=== PATIENT | male | born 1940 | race Caucasian/White ===

== ENCOUNTER → 2023-11-22 10:02 | Outpatient (REF) | payer MEDICARE, OTHER, SELFPAY | LOC: DHCBS MAIN 10:02 | PROVIDERS: ATTENDING PHYSICIAN Internal Medicine Interventional Cardiology; FAMILY PHYSICIAN Nurse Practitioner Family | DX: I25.10 Atherosclerotic heart disease of native coronary artery without angina pectoris (principal); I25.5 Ischemic cardiomyopathy | CPT/HCPCS: 93306 ==

== ENCOUNTER → 2023-12-25 07:37 | Outpatient (REF) | payer MEDICARE, OTHER, SELFPAY ==
[2023-12-25 08:24] LABS: % Basophils 1.1 % (0-2); % Eosinophils 4.6 % (0-6); % Immature Granulocytes 0.6 % (0-0.5); % Monocytes 11.4 % (1.7-9.3); % Neutrophils 62.3 % (42.2-75.2); Absolute Basophils 0.1 10^3/uL (0-0.2); Absolute Eosinophils 0.2 10^3/uL (0-0.7); Absolute Lymphocytes 1.1 10^3/uL (1.2-3.4); Absolute Monocytes 0.6 10^3/uL (0.1-0.6); Absolute Neutrophils 3.3 10^3/uL (1.4-6.5); Hematocrit 40.9 % (39.0-52.0); Hemoglobin 13.6 g/dL (13.0-18.0); Mean Corp Hgb Conc. 33.3 g/dL (33.0-37.0); Mean Corpuscular Hgb 31.6 pg (27.0-31.0); Mean Corpuscular Volume 94.9 fL (80.0-94.0); Mean Platelet Volume 9.6 fL (7.4-10.4); Nucleated Red Blood Cells % 0 % (-); Platelet Count 166 10^3/uL (130-400); Red Blood Cell Count 4.31 10^6/uL (4.70-6.10); Red Cell Dist. Width 15.2 % (11.5-14.5); White Blood Cell Count 5.3 10^3/uL (4.8-10.8)
[2023-12-25 09:47] LABS: ALT (SGPT) 20 U/L (0-50); AST (SGOT) 22 U/L (17-59); Albumin 3.9 g/dl (3.5-5.0); Alkaline Phosphatase 81 U/L (38-126); Blood Urea Nitrogen 25 mg/dl (9-20); Calcium 9.1 mg/dl (8.4-10.2); Carbon Dioxide 30 mmol/L (22-30); Chloride 99 mmol/L (98-107); Glucose 127 mg/dl (70-99); Potassium 4.5 mmol/L (3.5-5.1); Sodium 132 mmol/L (135-145); Total Protein 6.3 g/dl (6.3-8.2); eGFR 59.63
== END ==
LOC: REG 07:37
PROVIDERS: ATTENDING PHYSICIAN Internal Medicine Interventional Cardiology; FAMILY PHYSICIAN Family Medicine
DX: I25.10 Atherosclerotic heart disease of native coronary artery without angina pectoris (principal); I25.5 Ischemic cardiomyopathy
CPT/HCPCS: 36415; 80053; 83735; 85025

== ENCOUNTER 2023-12-30 10:54 | Day surgery (SDC) | payer MEDICARE, OTHER, SELFPAY ==
[2023-12-30] VITALS (9 sets, daily range): BP systolic 107–144; BP diastolic 56–71; BMI 18.9; BMI 19.7
[2023-12-30] MEDS: NSS 500 IV ×2 (11:39→22:56)
--- NOTE | 2023-12-30 12:58 | W.ICD.CONTRA ---
Post ICD/MARINE PIPEFITTER-D
-
History of NE?: Yes
LV Function
Left ventricular function study result?: Ejection Fraction </= 35%
ACEI/ARB/ARNI
Patient already on ACEI/ARB/ARNI: Yes
Beta-Lynn
Patient already on Beta Lynn: Yes
--- NOTE | 2023-12-30 15:11 | ITS.CL.ICD ---
Information Lead - ICD
Implantable Cardioverter Defibrillator
Procedure Report:
ICD IMPLANTATION REPORT
Date of Procedure: 12/30/2023
Primary Care Provider: Dr Leidy Mora
Primary recycling coordinator: Dr Jillian Zeng
PROCEDURES:
1. Right Heart Cath, 2. ICD Implant
INDICATION FOR PROCEDURE:
Primary prevention ICD implantation. Remote myocardial infarction and with known infarct related cardiomyopathy and severe left ventricular systolic dysfunction despite guideline directed medical therapy (carvedilol, lisinopril, spironolactone,
atorvastatin, SGLT2 inhibitor was initiated but proved to be cost prohibitive) for greater than 90 days. LVEF June 2023 noted to be 15 to 20%. LVEF by most recent echocardiogram November 22, 2023 with LVEF of 20 to 25%, akinesis in the LAD
distribution.
There is no indication for cardiac resynchronization pacing.
Patient does have a history of paroxysmal atrial fibrillation.
HEMODYNAMICS:
RA: 6 mmHg, RV: 31/1 mmHg, PA: 35/15 mmHg,
PCWP: 19 mmHg, PA sat: 79%
CO: 4.9 L/min, CI: 2.8 L/min
OF NOTE:
There is atrial dysrhythmias and dual chamber device will allow better arrhythmia discrimination to avoid inappropriate shock therapy. Additionally, patient is active and dual chamber rather than VVI pacing is expected to provide improved quality of
life. Furthermore, there is heart failure (HFrEF) and AV synchronous pacing will provide improved cardiac output/cardiac function.
Lidocaine with epi was used for local anesthesia. Central venous access was obtained via axillary venipuncture. An incision was made along the left chest and a pre-pectoral pocket was formed. Using a Seldinger technique and peel-away sheaths, the
pacing leads were placed under fluoroscopic guidance.
Once testing (see below) showed adequate and stable function, the leads were secured using the suture sleeves. The pocket was liberally irrigated with antibiotic solution. The leads were connected to the generator header and the leads and
generator were placed within the pocket. Fluoroscopy confirmed stable lead position. The pocket was closed in the typical fashion.
Antibiotic pouch was used
IMPLANTS:
ICD Medtronic [id number], SN [id number], Left Pectoral
RA Medtronic 5076, SN [id number], RAA
RV Medtronic 6935, SN [id number], RV apical septum
DEVICE TESTING:
Sensing: RA 2 mV, RV 8 mV
Capture: RA 0.8 V@0.5ms, RV 0.8 V@0.5ms
Ohms: RA 456, RV 494
FINAL PROGRAMMING:
Scott Pacing: AAIR <=>DDDR 60 -130 ppm
Tachy parameters:
VF: 188 bpm, Shock
VT via VF: 188 - 240 bpm, ATP X 1, Shock
VT: 150 bpm, Monitor
COMPLICATIONS:
None
CONCLUSIONS:
1. Right heart hemodynamics demonstrate well compensated hemodynamic state and overall adequate volume status
2. Successful implant of dual chamber ICD system.
3. Normal function of ICD and leads at implant testing.
RECOMMENDATIONS:
Post op care (tele, CXR, IV abx).
In-Office wound check in 5-7 days.
Copy to:
Dr Leidy Mora
Dr Jillian Zeng
[2023-12-30] MEDS: LIPITOR 80 MG PO (17:39)
--- NOTE | 2023-12-30 18:18 | PTCARENOTE ---
Pt assisted OOB to BR, artis well. He denies incisional pain. L CW dsg D+I.
[2023-12-30] MEDS: PROTONIX 40 MG PO (20:03)
[2023-12-30] MEDS: MAG-TAB SR 84 MG PO (20:03)
[2023-12-30] MEDS: ANCEF 5 IV (20:04)
[2023-12-30] MEDS: SENOKOT 8.59999999999999964 MG PO (20:04)
[2023-12-30] MEDS: COREG 3.125 MG PO (20:04)
--- NOTE | 2023-12-30 23:40 | PTCARENOTE ---
Pt is pleasant but forgetful. Ambulatory to bathroom with single point cane and assist x1. Educated pt to use call jewell if needs to get up OOB. Bed alarm placed per high fall risk protocol. L arm immobilizer on. Aquacel and pressure dressing c/d/i.
Tele- A-paced. HR 60s. Aware of activity restrictions. Currently in bed; call jewell w/in reach.
[2023-12-31 03:08] VITALS: BP 117/71
[2023-12-31] MEDS: ANCEF 5 IV (03:21)
[2023-12-31 03:48] LABS: Hematocrit 40.4 % (39.0-52.0); Hemoglobin 13.5 g/dL (13.0-18.0); Mean Corp Hgb Conc. 33.4 g/dL (33.0-37.0); Mean Corpuscular Hgb 31.5 pg (27.0-31.0); Mean Corpuscular Volume 94.2 fL (80.0-94.0); Mean Platelet Volume 9.7 fL (7.4-10.4); Platelet Count 170 10^3/uL (130-400); Red Blood Cell Count 4.29 10^6/uL (4.70-6.10); Red Cell Dist. Width 14.9 % (11.5-14.5); White Blood Cell Count 6.8 10^3/uL (4.8-10.8)
[2023-12-31 04:18] LABS: Blood Urea Nitrogen 26 mg/dl (9-20); Calcium 8.4 mg/dl (8.4-10.2); Carbon Dioxide 26 mmol/L (22-30); Chloride 101 mmol/L (98-107); Estimated Creatinine Clearance 42 ml/min; Glucose 86 mg/dl (70-99); Magnesium 1.9 mg/dl (1.6-2.3); Sodium 130 mmol/L (135-145); eGFR > 60.00
[2023-12-31 06:00] VITALS: BMI 19.7
[2023-12-31 06:32] VITALS: BP 124/72
[2023-12-31] MEDS: PLAVIX 75 MG PO (07:48)
[2023-12-31] MEDS: LASIX 80 MG PO (07:48)
[2023-12-31] MEDS: COREG 3.125 MG PO (07:48)
[2023-12-31] MEDS: MAG-TAB SR 84 MG PO (07:48)
[2023-12-31] MEDS: SENOKOT 8.59999999999999964 MG PO (07:48)
[2023-12-31] MEDS: PROTONIX 40 MG PO (07:48)
[2023-12-31] MEDS: ZESTRIL 5 MG PO (07:48)
[2023-12-31] MEDS: ALDACTONE 25 MG PO (07:48)
[2023-12-31] MEDS: FLUSH (NSS) 1 FLUSH IV (07:49)
--- NOTE | 2023-12-31 09:27 | W.PN.CARDCBS ---
Addendum entered and electronically signed by Alexsander Matamoros MD 12/31/23 09:52:
Patient seen, interviewed and examined by me.
Well-appearing, no acute distress
Dressing at left chest is clean and dry.
Regular rate and rhythm with normal S1 and S2, no S3 no S4. There is a grade 1/6 apical holosystolic murmur and no rubs. PMI is normally placed.
Lungs are clear to auscultation bilaterally without wheezes rales or rhonchi.
Abdomen soft nontender nondistended with normoactive bowel sounds
Extremities show trace pretibial edema bilaterally no clubbing or cyanosis.
Neurologic exam is grossly nonfocal.
Chest x-ray with no pneumothorax.
Agree with advanced practice professionals assessment and plan as noted below.
Stable for discharge to home today.
Original Note:
Today's Communication / Plan
-
post DC ICD, RHC with normal filling pressures
stable for d/c home today
Impression / Plan
-
Primary Care Provider: Dr Leidy Mora
Primary guest service host: Dr Jillian Zeng
Impression:
Chronic HFrEF 25%
Ischemic cardiomyopathy
HTN
PAF
HLD
COPD
CAD/STEMI PCI LAD 06/2023
staged LCx and LAD 07/2023
PVD
BPH/TURP
Former smoker
Plan:
post DC ICD 12/30/23, RHC with normal filling pressures
site stable, pressure dressing removed
tele Apaced
CXR no PTX, leads in position
HF continue carvedilol, lisinopril, spironolactone, Lasix
CAD continue Plavix, statin
Hold Xarelto, resume Sat
Activity restrictions reviewed
inc check in 1 week
home today
Progress Note - Lapel Padder
Subjective
Date of Service: December 31, 2023
no cp, sob, minimal inc pain
Objective
Labs:
12/31/23 03:24
12/31/23 03:24
Labs
Hgb 13.5 g/dL (13.0-18.0) 12/31/23 03:24
Hct 40.4 % (39.0-52.0) 12/31/23 03:24
Plt Count 170 10^3/uL (130-400) 12/31/23 03:24
Sodium 130 mmol/L (135-145) L 12/31/23 03:24
Potassium 5.0 mmol/L (3.5-5.1) 12/31/23 03:24
BUN 26 mg/dl (9-20) H 12/31/23 03:24
Creatinine 1.1 mg/dL (0.7-1.3) 12/31/23 03:24
Glucose 86 mg/dl (70-99) 12/31/23 03:24
Vital Signs and I&O:
Vital Signs
Temp Pulse Resp BP Pulse Ox
98.0 F 60 18 124/72 97
12/31/23 06:32 12/31/23 07:00 12/31/23 06:32 12/31/23 06:32 12/31/23 06:32
Vital Signs
Temp Pulse Resp BP Pulse Ox
98.0 F 60 18 124/72 97
12/31/23 06:32 12/31/23 07:00 12/31/23 06:32 12/31/23 06:32 12/31/23 06:32
Intake & Output
12/29/23 12/30/23 12/31/23 01/01/24
06:59 06:59 06:59 06:59
Intake Total 240 / 240 240 / 240
Balance 240 / 240 240 / 240
Physical Exam
Physical Exam
NAD, AOx3
S1, S2, RRR
CTAB, non labored
SNTND Bsx4
No LE edema
L CW Aquacel dressing c/d/i, device protruding d/t size but no HT
--- NOTE | 2023-12-31 09:43 | W.DS.TRANS ---
DC Summary - [employer]
-
Discharge Instructions:
Sleep Apnea Risk Intermediate
Discharge Diagnosis/Procedures ICD implant
Diet Low Cholesterol,2 Gram Sodium
Driving Restrictions No driving
Bathing Restrictions OK to Shower
Specialty Instructions Weigh Daily
Instructions:
Stand-Alone Forms: DC Inst - Implanted Device
Changes to Home Medications: No
Discharge Medications:
DC Medications w/original date entered in [facility]
atorvastatin 80 mg tablet 80 mg PO QPM High Cholesterol 08/19/23
carvedilol 3.125 mg tablet 3.125 mg PO BID Heart Disease/Condition 08/19/23
clopidogrel 75 mg tablet 75 mg PO DAILY Blood Clot Prevention/Tx 08/19/23
lisinopril 5 mg tablet 5 mg PO DAILY Blood Pressure 08/19/23
magnesium oxide 400 mg PO BID Supplement 08/19/23
pantoprazole 40 mg tablet,delayed release 40 mg PO BID Gastrointestinal Issue 08/19/23
rivaroxaban 15 mg tablet (Xarelto) 15 mg PO DAILY Blood Clot Prevention/Tx 08/19/23
spironolactone 25 mg tablet 25 mg PO DAILY Fluid Retention/Swelling 08/19/23
furosemide 80 mg tablet 80 mg PO DAILY #30 tabs 08/23/23
sennosides 8.6 mg capsule (senna) 8.6 mg PO BID 12/30/23
Home Medication Changes
Pending Results: No
[2023-12-31 10:13] VITALS: BP 102/52
== END 2023-12-31 11:05 | disposition home or self-care (01) ==
LOC: CATH 10:54
PROVIDERS: Nurse Practitioner; ATTENDING PHYSICIAN Internal Medicine Cardiovascular Disease; FAMILY PHYSICIAN Family Medicine; OTHER PHYSICIAN Internal Medicine Interventional Cardiology
DX: I25.5 Ischemic cardiomyopathy (principal); I11.0 Hypertensive heart disease with heart failure; I50.22 Chronic systolic (congestive) heart failure; I25.2 Old myocardial infarction; I48.0 Paroxysmal atrial fibrillation; J44.9 Chronic obstructive pulmonary disease, unspecified; I73.9 Peripheral vascular disease, unspecified; E78.5 Hyperlipidemia, unspecified; Z79.01 Long term (current) use of anticoagulants; I25.10 Atherosclerotic heart disease of native coronary artery without angina pectoris; Z79.02 Long term (current) use of antithrombotics/antiplatelets
CPT/HCPCS: 33249; 71045; 80048; 83735; 85027; 93005; 93451; C1721; C1777; C1892; C1898; Q9967

== ENCOUNTER 2024-10-29 06:43 | Day surgery (SDC) | payer MEDICARE, OTHER, SELFPAY ==
[2024-10-29 07:54] VITALS: BMI 20.4
== END 2024-10-29 10:54 | disposition home or self-care (01) ==
LOC: CATH 06:43
PROVIDERS: ATTENDING PHYSICIAN Nuclear Medicine Nuclear Cardiology; FAMILY PHYSICIAN Family Medicine; OTHER PHYSICIAN Internal Medicine Interventional Cardiology
DX: I48.91 Unspecified atrial fibrillation (principal); I08.3 Combined rheumatic disorders of mitral, aortic and tricuspid valves; I70.90 Unspecified atherosclerosis
CPT/HCPCS: 93312; 93320; 93325; 93005

== ENCOUNTER 2024-11-09 13:06 | Emergency (ER) | payer MEDICARE, OTHER, SELFPAY ==
[2024-11-09 13:13] VITALS: BP 122/60
--- NOTE | 2024-11-09 14:14 | ED.GENMED ---
History of Present Illness
<Mel Wang PENAL OFFICER - Last Filed: 11/10/24 20:30>
General
Chief Complaint: Fall
Source: patient and records
Exam Limitations: none
Time Seen by Provider: 11/09/24 13:19
Nursing documentation reviewed up to this point in time: agreed with
History of Present Illness
History of Present Illness:
84 yo male from [facility] w h/o a fib on Xarelto, CHF, CAD, HTN, HLD, DC, CKD, ambulates with walker, presents stating he went to get OOB this a.m., lost footing and 'slid to the floor.' He denies hitting head, no LOC, denies neck pain. His
chronic back pain is 'aggravated' He landed on his buttocks leaning against the bed.
Past History
<Mel Wang PENAL OFFICER - Last Filed: 11/10/24 20:30>
Past History
ED Past Medical History: CAD, CHF, HTN, Hypercholesterolemia, [place] (92) and Other (BPH)
ED Past Surgical History: Cardiac (Angioplasty) and Urological (TURP)
Social History
Tobacco: Smoker
Alcohol: None
Drug: None
Personal:
Living: alone
Review of Systems
<Mel Wang, PENAL OFFICER - Last Filed: 11/10/24 20:30>
Review of Systems
Allergies reviewed?: Yes
All Other Systems: ROS reviewed and negative except as documented in HPI and ROS
Constitutional: Denies fever
Respiratory: Denies trouble breathing
Cardiac: Denies chest pain or syncope
ABD/GI: Denies abdominal pain or nausea
: Denies dysuria, frequency, incontinence or difficulty voiding
Musculoskeletal: Reports back pain (chornic low back pain is 'aggravated'); Denies joint pain or neck pain
Skin: Reports other (scrapes right upper arm and forearm)
Neurological: Denies dizzy, headache, weakness or numbness
Phy Exam
<Mel Wang PENAL OFFICER - Last Filed: 11/10/24 20:30>
Physical Exam
Physical Exam:
GENERAL: No acute distress. A&Ox3.
CONSTITUTIONAL: Afebrile.
EYES: clear, conjunctivae normal
ENMT: moist mucus membranes, Pharynx nl
RESPIRATORY: Regular respirations, nonlabored, lungs clear.
CARDIOVASCULAR: Regular rate and rhythm, no murmurs, no rubs.
GI: Soft, nontender, normal BS
MUSCULOSKELETAL: No spinal neck tenderness. Rolling to side moans in pain he states is his typical pain. Tender over lower back soft tissue patient s, no significant spinal tenderness. Moves legs with adequate ROM all joints without pain. No bony
tenderness upper extremities, full ROM. Well perfused.
SKIN: Warm, dry, pink. Several small <1 cm deep clean abrasions posterior upper right arm, one on forearm. Multiple old ecchymotic areas arms.
PSYCH: Normal mood and affect. Well kept, interactive and appropriate
NEUROLOGIC: Awake, alert and oriented. No focal neurological deficits
Course
<Mle Wang, PENAL OFFICER - Last Filed: 11/10/24 20:30>
Orders/Labs/Results
Orders:
Orders
11/09/24 13:26
CT Head W/o Iv Contrast Urgent
Comment:
Reason For Exam: fall, on Xarelto
11/09/24 14:18
Lumbar Spine, 2 or 3 View [CR Lumbar Spine 2 Or 3 Views] Urgent
Comment:
Reason For Exam: slid OOB, low back pain
11/09/24 16:12
Acetaminophen [Tylenol] 1,000 mg PO NOW STA
Vital Signs
Initial and Last Documented VS:
Initial Vital Signs
Temp Pulse Resp BP Pulse Ox
97.7 F 82 18 122/60 98
11/09/24 13:13 11/09/24 13:13 11/09/24 13:13 11/09/24 13:13 11/09/24 13:13
Last Documented Vital Signs
Temp Pulse Resp BP Pulse Ox
97.7 F 82 18 122/60 98
11/09/24 13:13 11/09/24 13:13 11/09/24 13:13 11/09/24 13:13 11/09/24 13:13
<Isaias Gutierres PA-C - Last Filed: 11/10/24 10:38>
Orders/Labs/Results
Orders:
Orders
11/09/24 13:26
CT Head W/o Iv Contrast Urgent
Comment:
Reason For Exam: fall, on Xarelto
11/09/24 14:18
Lumbar Spine, 2 or 3 View [CR Lumbar Spine 2 Or 3 Views] Urgent
Comment:
Reason For Exam: slid OOB, low back pain
11/09/24 16:12
Acetaminophen [Tylenol] 1,000 mg PO NOW STA
Vital Signs
Initial and Last Documented VS:
Initial Vital Signs
Temp Pulse Resp BP Pulse Ox
97.7 F 82 18 122/60 98
11/09/24 13:13 11/09/24 13:13 11/09/24 13:13 11/09/24 13:13 11/09/24 13:13
Last Documented Vital Signs
Temp Pulse Resp BP Pulse Ox
97.7 F 82 18 122/60 98
11/09/24 13:13 11/09/24 13:13 11/09/24 13:13 11/09/24 13:13 11/09/24 13:13
<Mel Wang NP - Last Filed: 11/10/24 20:30>
MDM/Problems Addressed
Differential Diagnosis Includes:
head bleed, low back strain, lumbar fracture
MDM/Problems Addressed:
84 yo male from [facility] w h/o a fib on Xarelto, CHF, CAD, HTN, HLD, DC, CKD, ambulates with walker, presents stating he went to get OOB this a.m., lost footing and 'slid to the floor.' He denies hitting head, Denies headache, no LOC, denies neck
pain. His chronic back pain is 'aggravated' He landed on his buttocks leaning against the bed.
Pt oriented, daughter Chantelle is registrar here, she states he is totally with it, he is clear on what happened.
This was clearly a mechanical fall,no indication for blood work or further testing.
Head CT radiology report read: No acute intracranial abnormality
LS-spine radiology report read: IMPRESSION:
1. Multilevel vertebral body endplate fractures in the lumbar and lower thoracic spine with moderate to severe loss of vertebral body height at T11 and L5. Mild loss of vertebral body height at the other lumbar and lower thoracic levels.
MULTILEVEL OSTEOPOROTIC VERTEBRAL BODY ENDPLATE INSUFFICIENCY FRACTURES are considered most likely given the degree of severe diffuse bone demineralization.
2. Moderate discogenic degenerative disease at L2/L3.
3. Grade 1 anterolisthesis of L4 on L5 secondary to severe facet joint arthrosis
Most likely no new fractures as palpation of spine was not painful and pt states pain is at its usual level
Pt has been OOB and ambulating at his baseline with walker
Stable for discharge
<Isaias Gutierres PA-C - Last Filed: 11/10/24 10:38>
*Critical Care Note
Total Time (30-74mins, 75-104mins- exclusive of procedures): Not Applicable
ED Attending Note
<Mel Wang NP - Last Filed: 11/10/24 20:30>
-
Portions of this chart may have been created with voice recognition software.� Occasional wrong word or��sound alike� substitutions may have occurred due to the inherent limitations of voice recognition software.
Discharge Plan
Departure
Patient Disposition: Jail/SNF
Date of Disposition: 11/09/24
Time of Disposition: 16:56
Patient with high blood pressure during this ER visit?: No
Condition: Good
Discharge Problem:
Fall from bed, Acute exacerbation of chronic low back pain, Abrasion of multiple sites of right upper arm
Instructions: Low back pain in adults, Preventing falls in adults, Skin Abrasions (DC)
Prescriptions:
New
tramadol 50 mg tablet
50 mg PO Q8H PRN (Reason: Pain) Qty: 14 0RF
No Action
atorvastatin 80 mg tablet
80 mg PO QPM
spironolactone 25 mg tablet
25 mg PO DAILY
carvedilol 3.125 mg tablet
3.125 mg PO BID
pantoprazole 40 mg tablet,delayed release (DR/EC)
40 mg PO QPM
lisinopril 5 mg tablet
5 mg PO DAILY
Xarelto 15 mg tablet
15 mg PO DAILY
magnesium oxide 400 mg magnesium Tablet
400 mg PO BID
furosemide 80 mg Tablet
80 mg PO DAILY Qty: 30 0RF
senna 8.6 mg Capsule
8.6 mg PO BID
linezolid 600 mg Tablet
600 mg PO BID
Referrals:
JENI URBAN MD [Family Provider] -
Activity Restrictions/Additional Instructions:
As we discussed, nothing worrisome in your workup here today
Tylenol 100 mg every 6 hours up to 3 times a day as needed for pain.
Interventions
Interventions:
*Risk Screen - Suicide Last Done: 11/09/24 13:13
*General Assessment Last Done: 11/09/24 13:13
*Neglect/Abuse Screening Last Done: 11/09/24 13:13
*ED- Fall Risk Assessment Last Done: 11/09/24 17:13
*Nursing Disposition Last Done: 11/09/24 17:13
ED-Musculoskeletal Assessment Last Done: 11/09/24 13:34
ED- Neurological Assessment Last Done: 11/09/24 13:34
ED-Skin Assessment Last Done: 11/09/24 13:34
Discharge Date and Time
Discharge Date/Time: 11/09/24 17:13
Print Language: ROMANIAN
[2024-11-09] MEDS: TYLENOL 1000 MG PO (16:33)
== END 2024-11-09 17:13 ==
LOC: EMR 13:06
PROVIDERS: EMERGENCY PHYSICIAN Emergency Medicine; FAMILY PHYSICIAN Internal Medicine
DX: S40.811A Abrasion of right upper arm, initial encounter (principal); W06.XXXA Fall from bed, initial encounter; M54.50 Low back pain, unspecified; G89.29 Other chronic pain; E78.00 Pure hypercholesterolemia, unspecified; I13.0 Hypertensive heart and chronic kidney disease with heart failure and stage 1 through stage 4 chronic kidney disease, or unspecified chronic kidney disease; I50.9 Heart failure, unspecified; N18.9 Chronic kidney disease, unspecified; I25.2 Old myocardial infarction; F17.200 Nicotine dependence, unspecified, uncomplicated; I25.10 Atherosclerotic heart disease of native coronary artery without angina pectoris; N40.0 Benign prostatic hyperplasia without lower urinary tract symptoms; Z79.01 Long term (current) use of anticoagulants; Z90.79 Acquired absence of other genital organ(s)
CPT/HCPCS: 99284; 70450; 72100

== ENCOUNTER 2024-11-16 08:17 | Inpatient (IN) | payer MEDICARE, OTHER, SELFPAY ==
[2024-11-14 20:36] VITALS: BP 107/57
[2024-11-14 21:00] VITALS: BP 98/42
[2024-11-14 21:05] LABS: ALT (SGPT) 66 U/L (0-50); AST (SGOT) 62 U/L (17-59); Albumin 3.4 g/dl (3.5-5.0); Alkaline Phosphatase 94 U/L (38-126); Blood Urea Nitrogen 54 mg/dl (9-20); Carbon Dioxide 25 mmol/L (22-30); Chloride 88 mmol/L (98-107); Glucose 109 mg/dl (70-99); Potassium 4.6 mmol/L (3.5-5.1); Sodium 124 mmol/L (135-145); Total Bilirubin 1.7 mg/dl (0.2-1.3); Total Protein 5.6 g/dl (6.3-8.2); eGFR 36.43
[2024-11-14 21:25] LABS: % Basophils 0.1 % (0-2); % Eosinophils 0.3 % (0-6); % Immature Granulocytes 0.7 % (0-0.5); % Lymphocytes 8.4 % (20.5-51.1); % Monocytes 4.8 % (1.7-9.3); % Neutrophils 85.7 % (42.2-75.2); Absolute Immature Granulocytes 0.1 10^3/uL (0-0.05); Absolute Lymphocytes 0.6 10^3/uL (1.2-3.4); Absolute Monocytes 0.3 10^3/uL (0.1-0.6); Hematocrit 33.3 % (39.0-52.0); Hemoglobin 11.4 g/dL (13.0-18.0); Mean Corp Hgb Conc. 34.2 g/dL (33.0-37.0); Mean Corpuscular Hgb 30.2 pg (27.0-31.0); Mean Corpuscular Volume 88.1 fL (80.0-94.0); Mean Platelet Volume 11.2 fL (7.4-10.4); Nucleated Red Blood Cells % 0 % (-); Platelet Count 44 10^3/uL (130-400); Red Blood Cell Count 3.78 10^6/uL (4.70-6.10); Red Cell Dist. Width 14.3 % (11.5-14.5)
[2024-11-14 22:27] VITALS: BP 98/46
--- NOTE | 2024-11-14 22:31 | ED.GENMED ---
History of Present Illness
General
Chief Complaint: Weakness
Source: patient and family (Daughter relates that he has had back pain for several weeks, he has not gotten out of bed)
Exam Limitations: dementia
Time Seen by Provider: 11/14/24 21:25
Nursing documentation reviewed up to this point in time: agreed with
History of Present Illness
History of Present Illness:
84-year-old male presents emergency department due to weakness and low back pain. Daughter states he is eating less, not getting out of bed.
Past History
Past History
ED Past Medical History: CAD, CHF, HTN, Hypercholesterolemia, [place] (89) and Other (BPH)
ED Past Surgical History: Cardiac (Angioplasty) and Urological (TURP)
Social History
Tobacco: Smoker
Alcohol: None
Drug: None
Personal:
Living: alone
Review of Systems
Review of Systems
Allergies reviewed?: Yes
All Other Systems: Not applicable
Constitutional: Reports fatigue
EENT: Reports no symptoms
Respiratory: Reports no symptoms
Cardiac: Reports no symptoms
ABD/GI: Reports no symptoms
: Reports no symptoms
Musculoskeletal: Reports back pain
Skin: Reports no symptoms
Neurological: Reports weakness
Endocrine: Reports no symptoms
Hematologic/Lymphatic: Reports no symptoms
Psychiatric: Reports no symptoms
Phy Exam
Physical Exam
Physical Exam:
Physical Exam
General: no apparent distress, not acutely ill
Neck: supple. no meningeal signs. normal posterior pharynx
Heart: s1/s2 regular rate and rhythm, no murmur. equal radial
pulses.
HEENT: Pupils equal round reactive to light, EOMI
Lungs: no acute respiratory distress. clear bilaterally
Abdomen: normal bowel sounds. not tender. no CVAT
Neuro: alert and oriented. no focal neurological deficits cranial nerves II through XII intact
Skin: no rash
Psychiatric: well kept. interactive and cooperative
Extremities: no edema. no calf tenderness. negative homans. good distal pulses
Course
Orders/Labs/Results
Orders:
Orders
11/14/24 20:34
Electrocardiogram (*1) Urgent
Reason for Study: Fatigue / Weakness
11/14/24 20:35
EKG- Treatment ONCE
11/14/24 20:37
Complete Blood Count/With Diff Urgent
Comprehensive Metabolic Panel Urgent
11/14/24 22:38
0.9% Sodium Chloride 250 ml [Nss] 250 ml IV BOLUS
11/14/24 22:42
Morphine Sulfate 2 mg IV NOW STA
Ondansetron Injectable [Zofran] 4 mg IV NOW STA
11/14/24 23:00
Flush (0.9% Sodium Chloride) [Flush (Nss)] See Dose Instructions IV PER PROTOCOL
11/15/24 00:18
Admit/Transfer Patient As Directed
Co-Sign Provider:
Level of Care: Observation services
Assign to:: Telemetry
Physician / Group: hospitalist
Diagnosis: hyponatremia
Reason for Telemetry: Medication for Arrhythmia
Date to Stop Telemetry: 11/17/24
Time to Stop Telemetry: 11:00
PRN Pain Medication Management As Directed
May give lesser potent ordered pain med per pt: Yes
preference::
Protocol:: Medication orders for pain may be administered in a
manner that supports deferring to patient preference
when the pt is:
- Requesting an ordered lesser potent pain medication.
Least to most potent pain medications are defined
as: acetaminophen < NSAID < tramadol < opioids
(morphine, oxycodone, hydromorphone).
- Requesting a lesser dose of the same medication IF
ORDERED.
- Requesting a less intrusive route of administration
if both routes are prescribed by the provider (PO <
IV).
11/15/24 00:19
Code Status As Directed
Resuscitation Status: Full Code
11/15/24 00:23
0.9% Sodium Chloride 250 ml [Nss] 250 ml IV BOLUS
11/17/24 11:00
DC Protocol for Telemetry ONCE
Abnormal Lab Results
11/14/24
20:37
RBC 3.78 L 10^6/uL
(4.70-6.10)
Hgb 11.4 L g/dL
(13.0-18.0)
Hct 33.3 L %
(39.0-52.0)
Plt Count 44 L 10^3/uL
(130-400)
MPV 11.2 H fL
(7.4-10.4)
Abs Immat Gran (auto) 0.1 H 10^3/uL
(0-0.05)
Absolute Lymphs (auto) 0.6 L 10^3/uL
(1.2-3.4)
Immature Gran % 0.7 H %
(0-0.5)
Neutrophils % 85.7 H %
(42.2-75.2)
Lymphocytes % 8.4 L %
(20.5-51.1)
Sodium 124 L mmol/L
(135-145)
Chloride 88 L mmol/L
(98-107)
BUN 54 H mg/dl
(9-20)
Creatinine 1.8 H mg/dL
(0.7-1.3)
Glucose 109 H mg/dl
(70-99)
Calcium 8.0 L mg/dl
(8.4-10.2)
Total Bilirubin 1.7 H mg/dl
(0.2-1.3)
AST 62 H U/L
(17-59)
ALT 66 H U/L
(0-50)
Total Protein 5.6 L g/dl
(6.3-8.2)
Albumin 3.4 L g/dl
(3.5-5.0)
11/14/24 20:37
11/14/24 20:37
Vital Signs
Initial and Last Documented VS:
Initial Vital Signs
Temp Pulse Resp BP Pulse Ox
97.5 F 67 16 107/57 99
11/14/24 20:36 11/14/24 20:36 11/14/24 20:36 11/14/24 20:36 11/14/24 20:36
Last Documented Vital Signs
Temp Pulse Resp BP Pulse Ox
97.5 F 60 16 98/46 100
11/14/24 20:36 11/14/24 22:30 11/14/24 20:36 11/14/24 22:27 11/14/24 22:30
MDM/Problems Addressed
Differential Diagnosis Includes:
Acute renal failure, hyponatremia
MDM/Problems Addressed:
84-year-old male with acute renal failure, hyponatremia, hypocalcemia. Admit to hospitalist.
Chronic conditions affecting care: HTN, CAD and Cardiomyopathy
Acute Exacerbation and/or Progression of Chronic Illness: HTN, CAD and Cardiomyopathy
*Pulse Oximetry
Patient hypoxic: no
*EKG
Interpreted by ED Provider?: Yes
EKG Intrepretation Date: 11/14/24
EKG Intrepretation Time: 20:43
Interpretation: abnormal
Comparison EKG: no changes
Heart Rate: 63
Rate: normal
Rhythm: av sequential
[place]: normal axis
Interval: normal interval
QRS Pattern: normal QRS
Ischemia: non-specific ST changes
*Armature Coil Winder Interpretation
Rate: normal
Interpretation: abnormal
Heart Rate: 62
Rhythm: av sequential
*Critical Care Note
Total Time (30-74mins, 75-104mins- exclusive of procedures): Not Applicable
Data Reviewed
Review of Other/Old Records Reveals: Labs (Na 130, )
Source: records
ED Attending Note
-
Portions of this chart may have been created with voice recognition software.� Occasional wrong word or��sound alike� substitutions may have occurred due to the inherent limitations of voice recognition software.
Discharge Plan
Departure
Patient Disposition: Admit
Date of Disposition: 11/14/24
Time of Disposition: 22:38
Admit to: IMU
Presentation/result/management discussed w/ accepting MD/DO: Hospitalist
Patient with high blood pressure during this ER visit?: No
Condition: Fair
Discharge Problem:
Acute hyponatremia, AYE (acute kidney injury), Weakness
Interventions
Interventions:
*Risk Screen - Suicide Last Done: 11/14/24 20:36
*General Assessment Last Done: 11/14/24 20:36
*Neglect/Abuse Screening Last Done: 11/14/24 20:36
*ED- Fall Risk Assessment Last Done: 11/14/24 20:36
*ED COVID-19 Vaccine History Last Done: 11/14/24 20:36
ED- Cardiac Assessment Last Done: 11/14/24 20:43
ED- Neurological Assessment Last Done: 11/14/24 20:43
ED- Pulmonary Assessment Last Done: 11/14/24 20:43
[2024-11-14] MEDS: MORPHINE SULFATE 2 MG IV (22:50)
[2024-11-14] MEDS: ZOFRAN 4 MG IV (22:50)
[2024-11-14] MEDS: NSS 250 IV (22:50)
[2024-11-14] MEDS: FLUSH (NSS) 1 FLUSH IV (22:51)
[2024-11-14 23:00] VITALS: BP 100/47
--- NOTE | 2024-11-14 23:56 | HPS.HSE ---
Family Physician
-
Family Physician: JENI URBAN MD
Chief Complaint
-
Weakness
History of Present Illness
This is an 84-year-old male with past medical history of CAD status post STEMI in 2022 with LAD stent placement, staged mid LAD and circumflex stents, ischemic cardiomyopathy with EF of around 20 to 25% status post ICD and pacemaker, paroxysmal
atrial fibrillation on Xarelto and amiodarone, hypertension, hyperlipidemia, CKD, recurrent falls recent admission at [facility] with sepsis 6 and MSSA bacteremia status post antibiotic treatment and discharge about 3 weeks ago presents to
the emergency department for a second time in 1 week with weakness and back pain.
According to daughter who provided history patient has been going to rehab at [facility]. Did he has had decreased p.o. intake secondary to decreased appetite. He has had no lower extremity swelling. He has no shortness of breath cough
fevers or chills. He has no nausea or vomiting or diarrhea. He has been taking his discharge medications which included furosemide and spironolactone. He complains of chronic back pain which he says is localized behind the right buttocks. He
denies any radicular symptoms. He denies any numbness tingling or weakness in his lower extremities bilaterally. He denies any new urinary symptoms including incontinence, urgency frequency or dysuria. He denies any hematuria.
During his last hospitalization for MSSA bacteremia he refused inpatient echo but ultimately received transfer esophageal echocardiogram on October 29 which showed no vegetations and EF that is unchanged from prior at around 20 to 25%. ICD wire
seen in the right heart, normal right ventricle size and function noted. No evidence of any thrombus.
Here in the emergency department his blood pressure was 90/46, pulse was 60 respiratory rate 16 he was satting 100% on room air. ECG shows a paced rhythm at a rate of 63 and no other acute changes. CBC was unremarkable. Electrolytes notable for a
sodium of 124, BUN and creatinine with 50 and 1.8 respectively with a normal glucose. Calcium was 8.0. Total bilirubin was slightly bit at 1.7 with slight elevation in AST and ALT to 62 and 66 respectively.
Medical History
Past Medical History
Past Medical History: Reports Arrhythmia (paroxysmal afib), CAD (Status post AK, status post multivessel angioplasty with stents), CHF (EF 20 - 25%, s/p ICD PPM), HTN, Hypercholesterolemia and Other (Nephrolithiasis, BPH)
Past Surgical History: Reports Tonsilectomy, Urological (TURP, bladder surgery with calculi removal) and Other (Angioplasty with stents in the heart, TURP.)
Social History
Tobacco: Non-smoker
Alcohol: None
Drug: None
Personal: Single
Living: Assisted Living
Employment: Retired
Family History
Family History: CAD
Allergies / Home Medications
Allergies reflects when Allergies were last updated in [employer].
Home Medications with original date entered in [employer]
Allergy/Medication List:
Allergies
Allergy/AdvReac Type Severity Reaction Status Date / Time
No Known Allergies Allergy Verified 11/09/24 13:12
Home Medications
atorvastatin 80 mg tablet 80 mg PO QPM High Cholesterol 08/19/23
carvedilol 3.125 mg tablet 3.125 mg PO BID Heart Disease/Condition 08/19/23
lisinopril 5 mg tablet 5 mg PO DAILY Blood Pressure 08/19/23
magnesium oxide 400 mg PO BID Supplement 08/19/23
pantoprazole 40 mg tablet,delayed release 40 mg PO QPM Gastrointestinal Issue 08/19/23
rivaroxaban 15 mg tablet (Xarelto) 15 mg PO DAILY Blood Clot Prevention/Tx 08/19/23
spironolactone 25 mg tablet 25 mg PO DAILY Fluid Retention/Swelling 08/19/23
furosemide 80 mg tablet 80 mg PO DAILY #30 tabs 08/23/23
sennosides 8.6 mg capsule (senna) 8.6 mg PO BID 12/30/23
tramadol 50 mg tablet 50 mg PO Q8H PRN Pain #14 tabs 11/09/24
Amiodarone 200 mg tablet, 20 mg p.o. daily
Aspirin 81 mg tablet, 8 tomograms p.o. daily
Review of Systems
-
History Source: Patient
Constitutional: Reports Weight Loss and Fatigue
EENT: Reports No Symptoms
Respiratory: Reports No Symptoms
Cardiac: Reports No Symptoms
Abdomen/GI: Reports No Symptoms
: Reports No Symptoms
Musculoskeletal: Reports Joint Pain
Neurological: Reports Weakness
Endocrine: Reports No Symptoms
Hematologic/Lymphatic: Reports No Symptoms
Psych: Reports No Symptoms
Physical Exam
Vital Signs
Vital Signs
Temp Pulse Resp BP Pulse Ox
97.5 F 60 16 98/46 100
11/14/24 20:36 11/14/24 22:30 11/14/24 20:36 11/14/24 22:27 11/14/24 22:30
Physical Exam
General: No Apparent Distress
HEENT: NormoCephalic, Anicteric, Atraumatic, PERRLA and No Ptosis
Respiratory: Clear
Cardiac: S1/S2 and Regular Rhythm; No Murmur or Gallop
GI: Soft, Non Tender, Non Distended and Normal Bowel Sounds
Rectal: Deferred by Provider
Genito-urinary: Deferred by me
Musculoskeletal: No Clubbing, No Cyanosis and No Edema
Skin: Warm
Neuro: AO x 3 and Nonfocal/grossly intact
Hematologic/Lymphatic: No Lymphadenopathy
Psych: Calm
Laboratory Results
-
11/14/24 20:37
11/14/24 20:37
Laboratory Results
Total Bilirubin 1.7 mg/dl (0.2-1.3) H 11/14/24 20:37
AST 62 U/L (17-59) H 11/14/24 20:37
ALT 66 U/L (0-50) H 11/14/24 20:37
Alkaline Phosphatase 94 U/L (38-126) 11/14/24 20:37
Data Reviewed
-
Diagnostic Radiology: Report Reviewed by me
Medical Tests (Nuc Med, Echo, EKG etc): Image Personally Visualized and interpreted
Lab Data: Labs Reviewed by me
Old Records: Reviewed
Impression/Plan
-
IMPRESSION:
84-year-old with complex cardiac history including CAD status post stents, ischemic cardiomyopathy EF 20 to 25% status post ICD, proximal atrial fibrillation status post pacemaker and on anticoagulation, BPH, recent MSSA bacteremia of unknown source
with echocardiogram on October 29 showing no vegetations and otherwise unchanged echo from prior with a EF of 20 to 25% with no worsening valvular disease. He presents with weakness and worsening of his chronic lower back pain. No radicular
findings on examination. Was seen in the emergency department 5 days ago with similar complaints and at the time was given tramadol with minimal improvement. Patient today has a slightly lower blood pressure than baseline and is found to have
sodium of 124. Creatinine is 1.8 which is similar to but slightly worse than October 13 when the creatinine was 1.7 with a BUN of 49. Mild LFT abnormalities noted.
PLAN:
Hyponatremia - Based on hx appears to be hypovolemic hyponatremia. Possibly pain related SIADH. Patient is deydrated on exam and shows no edema, jvd or pulm edema. Baseline Na around 129-130, now 124. Asymptomatic.
- admit to telemetry
- hold lasix, spironolactone
- urine osms and sodium
- will give additional 250 ml saline and monitor
- likely d/c on lower doses of lasix (40mg daily)
- orthostatics
CKD - Cr 1.6-1.7 in october at [facility]. currently 1.8.
- holding lisinopril for now
- holding diuretics for the hyponatremia
- avoid nephrotoxins
- will restart her medications once sodium improved.
Back pain - chronic low back pain with vertebral body endplate fractures in the lumbar and lower thoracic spine with moderate to severe loss of vertebral body height at T11 and L5. Disease also seen at L2-3, L4-5 joints.
- tylenol prn
- oxycodon prn (tramadol not effective)
- lidocaine topical
- PT OT
- will need outpatient pain specialist
CHF - Hypovolemic
- holding diuretics and lisinopril
- continue coreg
- liberalize diet for now
AFIB
- continue Xarelto. In setting of recent falls, may discuss discontinuation
- continue coreg
DVT PPX - on Xarelto
Code status - Full Code for now
[2024-11-15] VITALS (12 sets, daily range): BP systolic 90–111; BP diastolic 40–71; PULSE 60–66; O2SAT 95; BMI 17.1
--- NOTE | 2024-11-15 05:15 | PTCARENOTE ---
Received pt from ED, AAOx3 forgetful, VSS, no complaints of pain. Pt has multiple wounds wrapped on R arm, R hip. Pt and family refused RN to remove- wound care consult placed. Dressing intact
[2024-11-15 07:46] LABS: Mean Corp Hgb Conc. 35.5 g/dL (33.0-37.0); Mean Corpuscular Hgb 30.2 pg (27.0-31.0); Mean Corpuscular Volume 85.2 fL (80.0-94.0); Mean Platelet Volume 11.3 fL (7.4-10.4); Platelet Count 45 10^3/uL (130-400); Red Blood Cell Count 3.64 10^6/uL (4.70-6.10); Red Cell Dist. Width 14.4 % (11.5-14.5); White Blood Cell Count 5.4 10^3/uL (4.8-10.8)
[2024-11-15 08:01] LABS: ALT (SGPT) 74 U/L (0-50); AST (SGOT) 92 U/L (17-59); Alkaline Phosphatase 86 U/L (38-126); Blood Urea Nitrogen 55 mg/dl (9-20); Carbon Dioxide 22 mmol/L (22-30); Chloride 93 mmol/L (98-107); Direct Bilirubin 0.4 mg/dl (0.0-0.4); Estimated Creatinine Clearance 28 ml/min; Glucose 71 mg/dl (70-99); Magnesium 2.4 mg/dl (1.6-2.3); Potassium 4.1 mmol/L (3.5-5.1); Sodium 126 mmol/L (135-145); Total Bilirubin 1.2 mg/dl (0.2-1.3); Total Protein 5.2 g/dl (6.3-8.2); eGFR 45.34
[2024-11-15] MEDS: XARELTO 15 MG PO (08:58)
[2024-11-15] MEDS: SENOKOT 8.6 MG PO ×2 (08:58→20:17)
[2024-11-15] MEDS: LIDOCAINE 4% PATCH TOPICAL (08:58)
[2024-11-15 09:13] LABS: Vitamin B12 764 pg/ml (239-931)
--- NOTE | 2024-11-15 09:15 | W.PN.HOSP.TC ---
Today's Communication/Plan
-
see bold
Assessment / Plan
Assessment / Plan
84-year-old with complex cardiac history including CAD status post stents, ischemic cardiomyopathy EF 20 to 25% status post ICD, proximal atrial fibrillation status post pacemaker and on anticoagulation, BPH, recent MSSA bacteremia of unknown source
with echocardiogram on October 29 showing no vegetations and otherwise unchanged echo from prior with a EF of 20 to 25% with no worsening valvular disease. He presents with weakness and worsening of his chronic lower back pain. No radicular
findings on examination. Was seen in the emergency department 5 days ago with similar complaints and at the time was given tramadol with minimal improvement. Patient today has a slightly lower blood pressure than baseline and is found to have
sodium of 124. Creatinine is 1.8 which is similar to but slightly worse than October 13 when the creatinine was 1.7 with a BUN of 49. Mild LFT abnormalities noted.
Hyponatremia
-Suspect secondary to hypovolemia. Baseline Na around 129-130
-Sodium improved to 126, from 124 status post 500 cc normal saline
-Consult nephrology, check urine studies, TSH, am cortisol
-48 ounce fluid restriction, trend sodium
Acute kidney injury superimposed on chronic kidney disease
Cr 1.6-1.7 in october at [facility]. currently 1.8.
-Creatinine improved to 1.6, from 1.8 status post IV fluids
-Holding Lasix, holding spironolactone/lisinopril as above
-Trend creatinine, trend daily weights
Back pain
-Chronic low back pain with vertebral body endplate fractures in the lumbar and lower thoracic spine with moderate to severe loss of vertebral body height at T11 and L5. Disease also seen at L2-3, L4-5 joints.
-Continue oxycodone, Tylenol, PT/OT, add laxatives
-Will need to follow-up with pain management outpatient
CHF - Hypovolemic
- holding diuretics and lisinopril
- continue coreg
- liberalize diet for now
AFIB
- continue Xarelto. In setting of recent falls, consider discussing discontinuation
- continue coreg
DVT PPX - on Xarelto
Code status - Full Code
Total time spent to see the patient on the floor, examine the patient, review data and lab results, discuss treatment plan with patient, nursing staff around 50 minutes.
Physical Exam
General: No acute distress
HEENT: Normocephalic, Atraumatic, EOMI, MMM
Respiratory: Clear to Auscultation bilaterally
Cardiac: Normal S1/S2, Regular Rate and Rhythm
GI: Soft, Nontender, Nondistended, Normal Bowel Sounds
Extremities: No Clubbing, Cyanosis, or Edema
Neuro: Nonfocal/Grossly Intact
Psych: Calm, Cooperative
Anticipated Discharge: 24 - 48 hours
Subjective/Interval History
-
Date of Service: November 15, 2024
Patient denies back pain. He continues to feel weak. No chest pain, no shortness of breath. No fever, no vomiting.
Objective Data
-
Labs:
Laboratory Results
11/14/24 11/15/24
20:37 07:14
WBC 7.0 5.4
Hgb 11.4 L 11.0 L
Hct 33.3 L 31.0 L
Plt Count 44 L 45 L
Sodium 126 L
Potassium 4.1
Chloride 93 L
Carbon Dioxide 22
BUN 55 H
Creatinine 1.5 H
Glucose 71
Calcium 8.0 L
Total Bilirubin 1.2
AST 92 H
ALT 74 H
Alkaline Phosphatase 86
Vital Signs:
Vital Signs
Temp Pulse Resp BP Pulse Ox
97.5 F 61 16 106/42 97
11/15/24 07:45 11/15/24 07:45 11/15/24 07:45 11/15/24 07:45 11/15/24 08:45
--- NOTE | 2024-11-15 10:19 | W.CON.NEPH ---
Consultation
-
Date/Time Consultation Requested: 11/15/2024 10 AM
Date/Time Consultation Performed: 11/15/2024 10 AM
Requesting Provider: Dr. Davidson
Performing Provider: Dr. Cortez
Reason for Consultation: Hyponatremia
Medical History
-
Chief Complaint: Weakness
History of Present Illness:
This is an 84-year-old gentleman who has hypertension on a multidrug regimen, hyperlipidemia on statin therapy, atrial fibrillation on Xarelto. He also has ischemic cardiomyopathy with heart failure reduced ejection fraction 20% on diuretic
therapy. Recently in [facility] with sepsis with MSSA. He was discharged to [facility] rehab. Since then he has had decreased oral intake. He comes to the emergency room because of weakness, relatively hypotense. Sodium was noted to be
124. He does have chronic hyponatremia as well. Creatinine was also noted to be elevated at 1.8 representing acute kidney injury.
Past Medical History
Paroxysmal atrial fibrillation
Coronary artery disease with stents
heart failure reduced EF
Hypertension
Hyperlipidemia
BPH
Nephrolithiasis
ICD pacemaker
Tonsillectomy
TURP
Stone extraction
Bladder surgery
Hyponatremia
Social History
Tobacco: Non-Smoker
Alcohol: None
Family History
Family History: Not Pertinent
Allergies / Home Medications
Allergy/AdvReac Type Severity Reaction Status Date / Time
No Known Allergies Allergy Verified 11/09/24 13:12
�Medication �Instructions �Recorded �Confirmed �Type
atorvastatin 80 mg tablet 80 mg PO QPM High Cholesterol 08/19/23 10/29/24 History
carvedilol 3.125 mg tablet 3.125 mg PO BID Heart 08/19/23 10/29/24 History
Disease/Condition
lisinopril 5 mg tablet 5 mg PO DAILY Blood Pressure 08/19/23 10/29/24 History
magnesium oxide 400 mg PO BID Supplement 08/19/23 10/29/24 History
pantoprazole 40 mg tablet,delayed 40 mg PO QPM Gastrointestinal Issue 08/19/23 10/29/24 History
release
rivaroxaban 15 mg tablet (Xarelto) 15 mg PO DAILY Blood Clot 08/19/23 10/29/24 History
Prevention/Tx
spironolactone 25 mg tablet 25 mg PO DAILY Fluid 08/19/23 10/29/24 History
Retention/Swelling
furosemide 80 mg tablet 80 mg PO DAILY #30 tabs 08/23/23 10/29/24 Rx
sennosides 8.6 mg capsule (senna) 8.6 mg PO BID 12/30/23 10/29/24 History
linezolid 600 mg tablet 600 mg PO BID 10/29/24 10/29/24 History
tramadol 50 mg tablet 50 mg PO Q8H PRN Pain #14 tabs 11/09/24 Rx
Physical Exam
Vital Signs
Vital Signs
Temp Pulse Resp BP Pulse Ox
97.5 F 61 16 106/42 97
11/15/24 07:45 11/15/24 07:45 11/15/24 07:45 11/15/24 07:45 11/15/24 08:45
Lab Results
WBC 5.4 10^3/uL (4.8-10.8) 11/15/24 07:14
RBC 3.64 10^6/uL (4.70-6.10) L 11/15/24 07:14
Hgb 11.0 g/dL (13.0-18.0) L 11/15/24 07:14
Hct 31.0 % (39.0-52.0) L 11/15/24 07:14
Plt Count 45 10^3/uL (130-400) L 11/15/24 07:14
Sodium 126 mmol/L (135-145) L 11/15/24 07:14
Potassium 4.1 mmol/L (3.5-5.1) 11/15/24 07:14
Chloride 93 mmol/L (98-107) L 11/15/24 07:14
Carbon Dioxide 22 mmol/L (22-30) 11/15/24 07:14
BUN 55 mg/dl (9-20) H 11/15/24 07:14
Creatinine 1.5 mg/dL (0.7-1.3) H 11/15/24 07:14
eGFR 45.34 11/15/24 07:14
Glucose 71 mg/dl (70-99) 11/15/24 07:14
Calcium 8.0 mg/dl (8.4-10.2) L 11/15/24 07:14
Albumin 3.0 g/dl (3.5-5.0) L 11/15/24 07:14
Laboratory Tests
08/20/23 08/21/23 12/31/23
15:56 05:02 03:24
Sodium 127 L 130 L
AST
ALT
Urine Osmolality 748
Urine Sodium 15 L
11/15/24
07:14
Sodium
AST 92 H
ALT 74 H
Urine Osmolality
Urine Sodium
Physical Exam
Patient is awake alert oriented and in no distress. Mood and affect were pleasant, insight and judgment were good. Pupils are equal round and reactive to light, extraocular movements are intact, sclera were anicteric. Hearing was normal, ears and
nose are intact. Oropharynx was clear. Neck was supple with trachea midline and no thyromegaly. Heart was regular rate and rhythm without rubs. Lower extremities without edema. Lungs were clear to auscultation bilaterally and with normal
excursion. Abdomen was soft, nontender, with normal active bowel sounds, and no hepatosplenomegaly. Skin was without rash and with normal turgor.
Data Reviewed
-
Radiology: Image Personally Visualized and interpreted (Lumbar spine x-ray 11/09/2024 by my reading shows multiple vertebral body endplate fractures)
Medical Tests (Nuc Med, Echo etc): Image Personally Visualized and interpreted (11/14/2024 EKG by my reading atrial paced)
Labs: Labs Reviewed by me
Old Records: Reviewed
Assessment/Plan
-
Assessment
Hypotension relative
Acute on chronic hyponatremia
Paroxysmal atrial fibrillation
Heart failure reduced ejection fraction
AYE
Back pain with fractures
Plan
check urine studies
holding spironolactone/lisinopril
holding lasix for now
light FR 48z for now
follow BMP
check bladder scan
--- NOTE | 2024-11-15 11:43 | CM ---
Addendum entered by Glenn Velazquez 11/15/24 11:50:
OBS status explained, placed on chart, pt has a copy.
Original Note:
CM following re: discharge planning.
Reviewed pt's chart, met with pt.
Pt is an 84 year old male, admitted with OBS status and primary dx of Hyponatremia, Weakness.
Pt reports he has been living in an apartment at [facility] for the past 6 months, has 2 supportive children, ambulates with a walker.
PT and OT will evaluate the pt to determine a level of care at discharge.
PCP: Joana Muniz
Pharmacy: [facility] pharmacy.
D/C plan: return back to [facility] will most likely VN services. PT/OT to evaluate.
CM will follow with discharge plan updates as hospitalization progresses
[2024-11-15] MEDS: HYDROPHOR 1 APPLIC TOPICAL ×2 (12:24→20:19)
[2024-11-15 13:39] LABS: Urine Albumin Negative (Neg - Trace); Urine Bilirubin Negative (Negative); Urine Character Clear (Clear); Urine Color Yellow; Urine Glucose Negative (Negative); Urine Ketone 1+ (Negative); Urine Leukocyte 1+ (Negative); Urine Nitrite Negative (Negative); Urine Occult Blood Negative (Negative); Urine Urobilinogen Negative (Neg - 1+)
[2024-11-15 13:50] LABS: Urine Squamous Cell 0-2 /LPF (Few)
[2024-11-15 13:51] LABS: Urine Bacteria Few (Negative); Urine Mucus Few; Urine Red Blood Cell 0-2 /HPF (0-2)
[2024-11-15 13:57] LABS: Osmolality Urine 504 mOsm/kg (300-900)
[2024-11-15 14:18] LABS: Urine Sodium 8 mmol/L (30-90)
[2024-11-15] MEDS: TYLENOL 650 MG PO ×2 (14:24→18:25)
[2024-11-15] MEDS: ROXICODONE 5 MG PO (16:17)
--- NOTE | 2024-11-15 16:37 | PTCARENOTE ---
Pt AAO x3; HOH. RUSSELL, can position self in bed. OOB to chair with assist x 1/walker; legs weak, pt unable to stand without assistance, c/o lower back pain with activity. VSS. Telemetry: A-paced. On room air- pulse ox 98%, no SOB noted. Abd
soft, rounded, artis PO, appetite fair. Voids clear lt joelle urine in urinal. Pt with multiple large bruised areas on arms; large skin tear Rt upper arm re-dressed; pt for WOC consult. Resting in bed at present. Will continue to monitor.
--- NOTE | 2024-11-15 16:55 | PTCARENOTE ---
Attempted to complete med rec on pt; pt stated he does not know medications/dosages; stated 'someone helps me with them'. Pt does not have medication list with him..
[2024-11-15] MEDS: PROTONIX 40 MG PO (17:50)
[2024-11-15] MEDS: LIPITOR 80 MG PO (17:50)
[2024-11-16] VITALS (8 sets, daily range): BP systolic 76–129; BP diastolic 33–58; PULSE 61–68; BMI 17.3
--- NOTE | 2024-11-16 06:15 | PTCARENOTE ---
For couple hrs this shift was quite disoriented re:place. Freq questioning as to if this was where he was supposed to be and why weren't some of his belongings here. Appeared to be thinking he was at SNF. Remained cooperative, despite being be
confused. Slept rather poorly through the night. Currently more relaxed and sleeping at intervals.
[2024-11-16] MEDS: MIRALAX 17 GRAMS PO (08:34)
[2024-11-16] MEDS: XARELTO 15 MG PO (08:34)
[2024-11-16] MEDS: SENOKOT 8.6 MG PO ×2 (08:34→19:57)
[2024-11-16] MEDS: LIDOCAINE 4% PATCH 1 PATCH TOPICAL (08:35)
[2024-11-16] MEDS: HYDROPHOR 1 APPLIC TOPICAL ×2 (08:35→19:57)
[2024-11-16 10:19] LABS: Blood Urea Nitrogen 51 mg/dl (9-20); Calcium 8.1 mg/dl (8.4-10.2); Carbon Dioxide 30 mmol/L (22-30); Chloride 89 mmol/L (98-107); Estimated Creatinine Clearance 31 ml/min; Glucose 82 mg/dl (70-99); Potassium 3.8 mmol/L (3.5-5.1); Sodium 123 mmol/L (135-145); eGFR 49.25
--- NOTE | 2024-11-16 10:38 | CM ---
Addendum entered by Sue Parker 11/16/24 14:40:
Patient known to [facility] at [facility].
Original Note:
Spoke with patient bedside, not interested in a facility for rehab.
Spoke with daughter via phone and reviewed recommendations.
PT recommending skilled rehab.
Facilities reviewed and referrals sent.
Plan: skilled rehab once medically stable and bed available.
--- NOTE | 2024-11-16 11:46 | WOUNDNOTE ---
R UPPER POSTERIOR ARM AND ELBOW
--- NOTE | 2024-11-16 11:46 | WOUNDNOTE ---
R POSTERIOR UPPER ARM
--- NOTE | 2024-11-16 11:57 | CON.CAR ---
Addendum entered and electronically signed by Mague Tamez DO 11/16/24 17:00:
I saw and examined the patient.
The Security Architect's note was reviewed and I agree with the note.
Comment: Patient was seen and examined with nursing at bedside. Agree with cardiac PA's documented HPI, assessment and plan. Janak is an 83-year-old male with history of coronary artery disease with STEMI status post LAD STEPHAN 06/02/2023 and status post
mid LAD and left circumflex STEPHAN 07/31/2023, chronic total occlusion of RCA with collaterals (at [facility]), hypertension, hyperlipidemia, paroxysmal atrial fibrillation on chronic anticoagulation with Xarelto, chronic kidney
disease, COPD, not on home oxygen, former tobacco abuse, BPH/TURP, peripheral vascular disease, coronary artery disease with resulting ischemic cardiomyopathy and chronic systolic and diastolic heart failure, dual-chamber ICD 12/2023, mild cognitive
deficits. He was seen by his primary avionics electronics technician, Dr. Yanez in September 2024 and Plavix was stopped and he was started on aspirin 81 mg daily as he was greater than 1 year status post STEPHAN (also on Xarelto for afib). Most recently, he had an
admission to [facility] in October 2024 with sepsis and MSSA bacteremia status post antibiotic treatment. NCIOLAS was advised and he had an outpatient NICOLAS on 10/29/2024 at that showed no vegetations and EF stable 20 to 25%. He was seen in
ED on 11/09/2024 after he fell/slid to the floor at his assisted living facility. He denies loss of consciousness and had no head trauma. He denies chest pain or pressure, shortness of breath or edema. He has no palpitations. His main complaints
are generalized weakness and back pain. He did not lose consciousness or hit his head. he had been going to rehab at [facility]. Today with physical therapy while standing he was orthostatic with lightheadedness and balance instability.
GEN: Frail 84-year-old gentleman in no acute distress on room air in bed
HEENT: mmm
LUNGS: CTA, no wheezes/rales
CV: Reg, S1/S2, 09/07 syst LSB
ABD: soft, BS+, NT/ND
EXT: No edema. Hyperpigmentation of the lower legs.
Plan:
Orthostatic hypotension with gait/balance instability and fall at assisted living prompting admission
-Head CT no acute intracranial abnormal
-Orthostatics today reviewed: Supine 116/52 mmHg, sitting 108/52 mmHg and standing 77/35 mmHg associated with lightheadedness
-Will hold diuretics as he looks euvolemic and admits that he has a poor appetite and does not drink enough water
-Lisinopril and spironolactone held
-Will start midodrine 2.5 mg 3 times daily
-Monitor orthostatic vital signs
History of chronic heart failure with reduced ejection fraction who appears euvolemic if not slightly dehydrated
-Will hold diuretics
-Hold lisinopril and Aldactone given hypotension and acute renal insufficiency
-Will continue carvedilol with hold parameters
-Recent 2D echocardiogram reviewed�will not repeat at this time
Paroxysmal atrial fibrillation with dual-chamber ICD implanted December 2023
-telemetry personally reviewed: Apaced
-on Amiodarone and carvedilol
-LFTs mildly elevated, follow on Amiodarone.
-TSH within normal limits
-[id number] score 4: Continue Xarelto
AoCRI
-Cr better today, 1.4
-holding spironolactone/lisinopril
-holding lasix for now
-follow BMP
Hyponatremia
�nephrology consulted and patient received Samsca
-Fluid restriction
hx CAD s/p PTCA 1991; STEMI s/p LAD prox/mid LAD STEPHAN 06/02/2023; s/p LAD mid STEPHAN & LCX 07/11/2023 ([place])Chronic heart failure with reduced ejection fraction, EF 20-25%
-on ASA/Xarelto (switched from Plavix at 09/2024 OV)
- high intensity statin, beta lupe
-denies anginal symptoms.
Currently full code but will need to really assess goals of care
Original Note:
Consultation
Consultation Request
Date/Time Consultation Requested: 11/16/2024 0844
Date/Time Consultation Performed: 11/16/2024 1200
Requesting Provider: Maurice Del Real MD
Performing Provider: YAMILEX Bruce for Dr Tamez
Reason for Consultation: hypotension, HF, CAD
Medical History
-
Chief Complaint: weakness
History of Present Illness:
83-year-old male with history of coronary artery disease with STEMI status post LAD STEPHAN 06/02/2023 and status post mid LAD and left circumflex STEPHAN 07/31/2023, chronic total occlusion of RCA with collaterals (at [facility]),
hypertension, hyperlipidemia, paroxysmal atrial fibrillation on chronic anticoagulation with Xarelto, chronic kidney disease, COPD, not on home oxygen, former tobacco abuse, BPH/TURP, peripheral vascular disease, coronary artery disease with
resulting ischemic cardiomyopathy and chronic systolic and diastolic heart failure, dual-chamber ICD 12/2023, mild cognitive deficits.
He was seen by his primary avionics electronics technician, Dr. Yanez in September 2024 and Plavix was stopped and he was started on aspirin 81 mg daily as he was greater than 1 year status post STEPHAN (also on Xarelto for afib).
Most recently, he had an admission to [facility] in October 2024 with sepsis and MSSA bacteremia status post antibiotic treatment. NICOLAS was advised and he had an outpatient NICOLAS on 10/29/2024 at that showed no vegetations and EF stable 20
to 25%.
Chronic heart failure reduced EF managed with carvedilol 3.125 mg twice daily, lisinopril 5 mg daily, spironolactone 25 mg daily, and furosemide.
Paroxysmal atrial fibrillation managed with amiodarone 200 mg daily, Xarelto 15 mg daily (creat clear <51)
He was seen in ED on 11/09/2024. On that day he went to get out of bed, lost footing, and slid to the floor. He did not lose consciousness or hit his head. he had been going to rehab at [facility].
He presents to [facility] 11/14/2024 with weakness and back pain.
ED evaluation: Creatinine 1.8, NA 124, K4.6, AST/ALT 62/66, hemoglobin 11.4.
Head CT no acute intracranial abnormality
Chest x-ray no evidence of pneumonia
EKG: Atrially paced, heart rate 63 bpm
Since admission, creatinine improved to 1.6 status post IV fluids. NA improved to 126. Holding diuretics, spironolactone, lisinopril. Nephrology has been consulted.
Pt denies CP/SOB/palps/lightheadedness/edema/PND/orthopnea
PMH:
CAD
PTCA 1991
STEMI s/p LAD prox/mid LAD STEPHAN 06/02/2023
s/p LAD mid STEPHAN & LCX 07/11/2023 ([place])Chronic heart failure with reduced ejection fraction, EF 15-20% on echo 06/2023
Ischemic cardiomyopathy
BPH
TURP
Hypertension
Hyperlipidemia
Paroxysmal atrial fibrillation
Chronic anticoagulation on Xarelto
PAD
COPD
Tobacco abuse
Dual-chamber ICD 12/2023
sepsis/ MSSA bacteremia 10/2024-hospitalized at
Past Medical History
Past Medical History: Other (As in HPI)
Social History
Tobacco: Smoker
Alcohol: None
Drug: None
Personal:
Living: Alone
Employment: Retired
Family History
Family History: CAD
Allergies / Home Medications
Allergy/AdvReac Type Severity Reaction Status Date / Time
No Known Allergies Allergy Verified 11/09/24 13:12
�Medication �Instructions �Recorded �Confirmed �Type
atorvastatin 80 mg tablet 80 mg PO QPM High Cholesterol 08/19/23 10/29/24 History
carvedilol 3.125 mg tablet 3.125 mg PO BID Heart 08/19/23 10/29/24 History
Disease/Condition
lisinopril 5 mg tablet 5 mg PO DAILY Blood Pressure 08/19/23 10/29/24 History
magnesium oxide 400 mg PO BID Supplement 08/19/23 10/29/24 History
pantoprazole 40 mg tablet,delayed 40 mg PO QPM Gastrointestinal Issue 08/19/23 10/29/24 History
release
rivaroxaban 15 mg tablet (Xarelto) 15 mg PO DAILY Blood Clot 08/19/23 10/29/24 History
Prevention/Tx
spironolactone 25 mg tablet 25 mg PO DAILY Fluid 08/19/23 10/29/24 History
Retention/Swelling
furosemide 80 mg tablet 80 mg PO DAILY #30 tabs 08/23/23 10/29/24 Rx
sennosides 8.6 mg capsule (senna) 8.6 mg PO BID 12/30/23 10/29/24 History
linezolid 600 mg tablet 600 mg PO BID Infection 10/29/24 10/29/24 History
tramadol 50 mg tablet 50 mg PO Q8H PRN Pain #14 tabs 11/09/24 Rx
Review of Systems
-
History Source: Patient
All other systems: Negative unless noted
Physical Exam
Vital Signs
Temp Pulse Resp BP Pulse Ox
97.6 F 61 12 128/53 100
11/16/24 07:45 11/16/24 07:55 11/16/24 07:55 11/16/24 07:55 11/16/24 07:55
Lab Results
11/15/24 07:14
11/16/24 09:37
GEN: No distress, lying flat in bed, sleeping, easy to arouse, Ox3
HEENT: supple, anicteric, mmm
LUNGS: CTA, no wheezes/rales
CV: Reg, S1/S2, 1/6 syst LSB, no murmur
ABD: soft, BS+, NT/ND
EXT: No edema
NEURO: Gross non-focal
SKIN: No rash
Impression / Plan
-
Primary Care Provider: Dr Leidy Mora
Primary avionics electronics technician: Dr Jillian Yanez
Impression:
Weakness
Hyponatremia
Acute on chronic kidney disease
Chronic HFrEF 25%
Ischemic cardiomyopathy
Sepsis 10/2024, hospitalized at [place]
HTN
PAF, on Amiodarone and Xarelto (15 mg)
HLD
COPD
CAD/STEMI PCI LAD 06/2023
staged LCx and LAD 07/2023
Dual-chamber ICD 12/2023(For severe LV systolic dysfunction despite GDMT)
PVD
BPH/TURP
Former smoker
Previous cardiovascular testing:
NICOLAS 10/29/2024: EF 20 to 25%, normal RV size and function, positive echo contrast with no evidence of thrombus, mild MR/TR/AI, moderate atherosclerotic plaque, nonmobile, no evidence of vegetation
Echo 11/22/2023: LAD distribution akinesis, EF 20 to 25%, mild MR/AI
Plan:
chronic HFrEF
-does not appear volume overloaded on exam
-ok to hold diuretic temporarily
-Blood pressures as low as 76/33 once this morning but improved on multiple repeat checks and appears to be around his outpatient baseline (was 106/66 at office visit 09/11/2024).
-would restart Carvedilol
-cont to hold Lisinopril and Spironolactone for now
-daily wts
pafib
-telemetry personally reviewed: Apaced
-on Amiodarone, Xarelto, carvedilol
-LFTs mildly elevated, follow on Amiodarone. Also check TSH, which is pending
-[id number] score 4
h/o CAD
-on ASA (switched from Plavix at 09/2024 OV), high intensity statin, beta lupe
-denies anginal symptoms.
Data Reviewed
-
EKG: Tracing Personally Visualized and interpreted
Medical Tests (Nuc Med, Echo etc): Image Personally Visualized and interpreted
Labs: Labs Reviewed by me
--- NOTE | 2024-11-16 12:00 | WOUNDNOTE ---
WON RN note: Patient admitted with acute hyponatremia,acute kidney injury
See H&P for complete history. New 's HALFWAY, recent falls.
PMH: Past Medical History: Reports Arrhythmia (paroxysmal afib), CAD (Status post AL, status post multivessel angioplasty with stents), CHF (EF 20 - 25%, s/p ICD PPM), HTN, Hypercholesterolemia and Other (Nephrolithiasis, BPH)
Past Surgical History: Reports Tonsilectomy, Urological (TURP, bladder surgery with calculi removal) and Other (Angioplasty with stents in the heart, TURP.)
Wound Location and type/assessment: Patient admitted with: skin tears on R posterior upper arm, large drainage on dressing, appears bleeding slowed since admission. Scattered bruising on limbs. b/l elbows with small healing stage 3 PI vs shearing,
no drainage. Sacrum blanchable red, small dry flaky patch of skin on R sacrum. Upon cleaning able to remove dry patch, tiny stage 2 PI visible. L upper back with dry abrasion. Heels are red but blanchable.
Appetite: Good, ate most of meal for breakfast.
Pressure redistribution devices in place: On Accumax, turns self in bed. Nurse Lorna reports patient oob to chair this morning then had to return to bed for low BP. Nurse said she will attempt to get him in chair again this afternoon. Asked nurse to
apply air overlay to bed when next up. Placed air cushion under heels. Skin prep and foam adhesives applied to heels to protect.
Plan: foam applied to L elbow. Adaptic, abd pad and kerlix applied to R upper arm skin tear, covering R elbow. Silicone foams applied to sacrum and L upper back. Will confirm orders with hospitalist and updated nurse.
Updated care plan and will follow as needed.
Note to case management of equipment requested for discharge: wound care.
--- NOTE | 2024-11-16 13:34 | W.PN.NEPH.PH ---
Today's Communication / Plan
-
Samsca 15 mg today
Assessment/Plan
-
Assessment
Hypotension relative
Acute on chronic hyponatremia
Paroxysmal atrial fibrillation
Heart failure reduced ejection fraction ejection fraction 20 to 25% as of 10/2024
AYE
Back pain with fractures
Plan
Urine sodium 8 with urine awesome 504 as I suspect this is in the setting of decreased effective arterial blood volume and CHF. Patient is cachectic in appearance likely minimal p.o. intake as well.
holding spironolactone/lisinopril
holding lasix for now
light FR 48z for now
follow BMP
Creatinine better at 1.4.
I will give 1 dose of Samsca today 15 mg
He does not examine to be in heart failure though whether this is decreased solute intake superimposed with CHF free water excretion will help with hyponatremia without affecting renal function
-
-
Date of Service: November 16, 2024
CC / HPI / ROS
-
Chief Complaint:
weakness
History of Present Illness:
Patient presents with weakness AYE and hyponatremia with a diminished ejection fraction cachectic in appearance decreased p.o. intake
Review of Systems:
No chest pain or shortness of breath
Labs
-
Labs:
WBC 5.4 10^3/uL (4.8-10.8) 11/15/24 07:14
RBC 3.64 10^6/uL (4.70-6.10) L 11/15/24 07:14
Hgb 11.0 g/dL (13.0-18.0) L 11/15/24 07:14
Hct 31.0 % (39.0-52.0) L 11/15/24 07:14
Plt Count 45 10^3/uL (130-400) L 11/15/24 07:14
Sodium 123 mmol/L (135-145) L 11/16/24 09:37
Potassium 3.8 mmol/L (3.5-5.1) 11/16/24 09:37
Chloride 89 mmol/L (98-107) L 11/16/24 09:37
Carbon Dioxide 30 mmol/L (22-30) 11/16/24 09:37
BUN 51 mg/dl (9-20) H 11/16/24 09:37
Creatinine 1.4 mg/dL (0.7-1.3) H 11/16/24 09:37
eGFR 49.25 11/16/24 09:37
Glucose 82 mg/dl (70-99) 11/16/24 09:37
Calcium 8.1 mg/dl (8.4-10.2) L 11/16/24 09:37
Albumin 3.0 g/dl (3.5-5.0) L 11/15/24 07:14
Physical Exam
-
Vital Signs:
Vital Signs
Temp Pulse Resp BP Pulse Ox
97.8 F 61 12 117/45 98
11/16/24 11:10 11/16/24 11:10 11/16/24 11:10 11/16/24 11:10 11/16/24 11:10
Cardiovascular:: Regular rate and rhythm
Respiratory:: Bilateral: Coarse
Lung Excursion:: Normal
Abdomen:: Nontender and Soft
Bowel Sounds:: Normal
Extremity Edema:: None: Bilateral:
[2024-11-16] MEDS: SAMSCA 15 MG PO (14:49)
--- NOTE | 2024-11-16 15:08 | W.PN.HOSP.TC ---
Addendum entered and electronically signed by Maurice Del Real MD 11/16/24 16:25:
Addendum
I discussed treatment plan with daughter, Maci. Family is aware of advanced heart failure status and guarded prognosis. I also informed her about plan to hold BP meds and monitor blood pressure. Patient has significant memory loss.
Daughter requested to treat back discomfort and she was agreeable to use narcotics if needed
Addendum entered and electronically signed by Maurice Del Real MD 11/16/24 15:40:
Addendum
Per wound care nurse,
scattered bruising on limbs. b/l elbows with small healing stage 3 PI vs shearing, no drainage. Sacrum blanchable red, small dry flaky patch of skin on R sacrum. Upon cleaning able to remove dry patch, tiny stage 2 PI visible. L upper back with dry
abrasion. Heels are red but blanchable.
Original Note:
Today's Communication/Plan
-
Prognosis is guarded
TSH
Vitamin B12 level
Seems unable to tolerate heart failure medications. Hold BP oral medications for now.
Consulted cardiology, recommend to discuss goal of care with patient/family. Patient is forgetful
Continue supportive care, as needed midodrine
Assessment / Plan
Assessment / Plan
Physical Exam
General: No acute distress, chronically ill looking,
HEENT: Normocephalic, Atraumatic, EOMI, MMM
Respiratory: Clear to Auscultation bilaterally
Cardiac: S1, S2, positive systolic murmur.
GI: Soft, Nontender, Nondistended, Normal Bowel Sounds
Extremities: No Edema. Cold and mildly cyanotic fingers
Neuro: Forgetful, does not know details. Awake and oriented to self and surroundings at time. Patient followed commands
Psych: Calm, Cooperative
84-year-old with complex cardiac history including CAD status post stents, ischemic cardiomyopathy EF 20 to 25% status post ICD, proximal atrial fibrillation status post pacemaker and on anticoagulation, BPH, recent MSSA bacteremia of unknown source
with echocardiogram on October 29 showing no vegetations and otherwise unchanged echo from prior with a EF of 20 to 25% with no worsening valvular disease. He presents with weakness and worsening of his chronic lower back pain. No radicular
findings on examination. Was seen in the emergency department 5 days ago with similar complaints and at the time was given tramadol with minimal improvement. Patient today has a slightly lower blood pressure than baseline and is found to have
sodium of 124. Creatinine is 1.8 which is similar to but slightly worse than October 13 when the creatinine was 1.7 with a BUN of 49. Mild LFT abnormalities noted.
Hyponatremia
-Suspect secondary to advanced heart failure with use of diuretic and poor oral intake
Continue with regular diet for now, encourage nutrition, patient is cachectic
Recommend dose of tolvaptan
#Acute kidney injury superimposed on progressive chronic kidney disease IIIb
Cr 1.6-1.7 in October at [facility]. currently 1.8.
-Creatinine improved to 1.6, from 1.8 status post IV fluids
-Holding Lasix, holding spironolactone/lisinopril as above
-Trend creatinine, trend daily weights
#Chronic back pain
-Chronic low back pain with vertebral body endplate fractures in the lumbar and lower thoracic spine with moderate to severe loss of vertebral body height at T11 and L5. Disease also seen at L2-3, L4-5 joints.
-Continue oxycodone, Tylenol, PT/OT, add laxatives
-Will need to follow-up with pain management outpatient
# Elevated liver enzyme, suspect hepatic congestion secondary to advanced heart failure
#Chronic heart failure reduced ejection fraction ejection fraction 20 to 25% as of 10/2024
Significant symptomatic orthostatic hypotension, systolic blood pressure dropped to 70s upon sitting or standing
- holding diuretics and lisinopril
-Hold Coreg
-As needed midodrine
-Prognosis is guarded
- liberalize diet for now
Paroxysmal atrial fibrillation
- continue Xarelto. In setting of recent falls, consider discussing discontinuation
Continue to monitor, unable to tolerate blood pressure medication
DVT PPX - on Xarelto
Code status - Full Code will discuss with family goal of care + CODE STATUS
Total time spent to see the patient on the floor, examine the patient, review data and lab results, discuss treatment plan with patient, daughter, cardiology, nursing staff around 55 minutes.
Anticipated Discharge: > 48 hours
Subjective/Interval History
-
Date of Service: November 16, 2024
Objective Data
-
Labs:
Laboratory Results
11/16/24
09:37
Sodium 123 L
Potassium 3.8
Chloride 89 L
Carbon Dioxide 30
BUN 51 H
Creatinine 1.4 H
Glucose 82
Calcium 8.1 L
Vital Signs:
Vital Signs
Temp Pulse Resp BP Pulse Ox
97.8 F 61 12 117/45 98
11/16/24 11:10 11/16/24 11:10 11/16/24 11:10 11/16/24 11:10 11/16/24 11:10
I&O
11/15/24 11/16/24 11/17/24
06:59 06:59 06:59
Intake Total 820 / 820
Output Total 500 / 500 350 / 350
Balance 320 / 320 -350 / -350
[2024-11-16] MEDS: ProAmatine 2.5 MG PO (15:26)
[2024-11-16 15:51] LABS: Cortisol, Random 34.9 ug/dl; TSH Reflex To Free T4 1.85 uIU/ml (0.47-4.68)
[2024-11-16] MEDS: LIPITOR 80 MG PO (17:31)
[2024-11-16] MEDS: ProAmatine PO (17:31)
[2024-11-16] MEDS: PROTONIX 40 MG PO (17:31)
[2024-11-17] VITALS (8 sets, daily range): BP systolic 88–123; BP diastolic 50–67; PULSE 64–78; O2SAT 93; BMI 17.6
[2024-11-17] MEDS: LIDOCAINE 4% PATCH 1 PATCH TOPICAL (08:50)
[2024-11-17] MEDS: HYDROPHOR 1 APPLIC TOPICAL ×2 (08:50→20:33)
[2024-11-17] MEDS: XARELTO 15 MG PO (08:53)
[2024-11-17] MEDS: MIRALAX 17 GRAMS PO (08:53)
[2024-11-17] MEDS: ProAmatine 2.5 MG PO ×2 (08:53→13:37)
[2024-11-17] MEDS: SENOKOT 8.6 MG PO ×2 (08:53→20:34)
[2024-11-17] MEDS: FLUSH (NSS) 1 FLUSH IV (08:54)
[2024-11-17 09:13] LABS: Blood Urea Nitrogen 38 mg/dl (9-20); Calcium 8.4 mg/dl (8.4-10.2); Carbon Dioxide 31 mmol/L (22-30); Chloride 93 mmol/L (98-107); Estimated Creatinine Clearance 36 ml/min; Glucose 87 mg/dl (70-99); Potassium 3.8 mmol/L (3.5-5.1); Sodium 130 mmol/L (135-145); eGFR 59.26
[2024-11-17 09:44] LABS: Vitamin B12 843 pg/ml (239-931)
--- NOTE | 2024-11-17 11:57 | W.PN.CARDCBS ---
Addendum entered and electronically signed by Parviz Lei MD 11/17/24 16:33:
84-year-old man admitted with weakness, hyponatremia, and orthostasis has received tolvaptan
H ischemic cardiomyopathy, EF 25%, recent hospitalization at [facility] for sepsis, PAF on amiodarone and Xarelto, hypertension, hyperlipidemia, COPD, anterior UT with LAD PCI June 2020, staged circumflex and LAD PCI July 2023, dual-chamber
ICD, PAD, BPH
115/59, pulse 78, respirate 16, afebrile, sats 99%, frail, cachectic, no complaints, temporal wasting, lungs are clear, neck veins not elevated,
Weight is 57.1 kg, up 0.8 kg, BP dropped from 115/59 supine to 88/64 standing with symptoms
EKG atrial paced, prolonged conduction, possible prior anterior UT
BUN/creatinine are 38 and 1.2, potassium is 3.8, sodium is 130, sodium had been 124, random cortisol was 34.9 normal, TSH 1.85
Impression:
Orthostatic hypotension with weakness, hyponatremia and malnutrition
Chronic HFrEF EF 25%
Ischemic cardiomyopathy
Recent hospital stay for sepsis
Hypertension
PAF on amiodarone
Hyperlipidemia
COPD
Anterior UT June 2023 treated with PCI and subsequent circumflex and LAD intervention
ICD December 2023, Medtronic
Plan:
Continue to hold diuretics, carvedilol, lisinopril
Uptitrate midodrine
I will increase base rate of ICD/pacer to 75 bpm. This may effectively increase cardiac output by 25%
Eventual reinstitution of GDMT
Currently no evidence of heart failure on exam
Okay to begin discharge planning, will need rehab/possibly long-term SNF
Original Note:
Today's Communication / Plan
-
Creatinine and sodium improving but we have not been able to add back heart failure meds due to orthostatic hypotension. Now on midodrine.
Check orthostatic BPs today. If stable, consider restarting GDMT at lowest doses
Impression / Plan
-
Primary Care Provider: Dr Leidy Mora
Primary showroom sales consultant: Dr Jillian Yanez
Impression:
Weakness
Hyponatremia
Acute on chronic kidney disease
Chronic HFrEF 25%
Ischemic cardiomyopathy
Sepsis 10/2024, hospitalized at [facility]
HTN
PAF, on Amiodarone and Xarelto (15 mg)
HLD
COPD
CAD/STEMI PCI LAD 06/2023
staged LCx and LAD 07/2023
Dual-chamber ICD 12/2023(For severe LV systolic dysfunction despite GDMT)
PVD
BPH/TURP
Former smoker
Previous cardiovascular testing:
NICOLAS 10/29/2024: EF 20 to 25%, normal RV size and function, positive echo contrast with no evidence of thrombus, mild MR/TR/AI, moderate atherosclerotic plaque, nonmobile, no evidence of vegetation
Echo 11/22/2023: LAD distribution akinesis, EF 20 to 25%, mild MR/AI
Plan:
chronic HFrEF
-does not appear volume overloaded on exam and denies shortness of breath, but weight trending up, up 3 pounds since admission
-ok to hold diuretic temporarily but may need to restart soon
-Has been off lisinopril and spironolactone due to hypotension and AYE with creat 1.8 on admission 11/14/2024, now down to 1.2
-Blood pressure has been orthostatic with drop to 76/33 with standing. Started on midodrine yesterday , 11/16/2024. Recheck orthostatics today.
-Attempted to restart carvedilol yesterday but orthostatic BP prevented this
-daily wts
pafib
-telemetry personally reviewed: Apaced
-on Amiodarone, Xarelto, carvedilol
-LFTs mildly elevated, follow on Amiodarone.
-Repeat LFTs in a.m.
- TSH 1.85
-[id number] score 4
h/o CAD
-on ASA (switched from Plavix at 09/2024 OV), high intensity statin, beta lupe
-denies anginal symptoms.
Progress Note - Physician Assistant
Subjective
Date of Service: November 17, 2024
Creatinine and sodium improving
Remains off all heart failure medications including Lasix, carvedilol, lisinopril, and spironolactone due to orthostatic BPs
Patient denies lightheadedness, shortness of breath, chest pain
Objective
Labs:
11/15/24 07:14
11/17/24 07:33
Labs
Hgb 11.0 g/dL (13.0-18.0) L 11/15/24 07:14
Hct 31.0 % (39.0-52.0) L 11/15/24 07:14
Plt Count 45 10^3/uL (130-400) L 11/15/24 07:14
Sodium 130 mmol/L (135-145) L 11/17/24 07:33
Potassium 3.8 mmol/L (3.5-5.1) 11/17/24 07:33
BUN 38 mg/dl (9-20) H 11/17/24 07:33
Creatinine 1.2 mg/dL (0.7-1.3) 11/17/24 07:33
Glucose 87 mg/dl (70-99) 11/17/24 07:33
Vital Signs and I&O:
Vital Signs
Temp Pulse Resp BP Pulse Ox
97.6 F 64 20 116/50 95
11/17/24 07:45 11/17/24 08:53 11/17/24 07:45 11/17/24 08:53 11/17/24 08:45
Vital Signs
Temp Pulse Resp BP Pulse Ox
97.6 F 64 20 116/50 95
11/17/24 07:45 11/17/24 08:53 11/17/24 07:45 11/17/24 08:53 11/17/24 08:45
Intake & Output
11/15/24 11/16/24 11/17/24 11/18/24
06:59 06:59 06:59 06:59
Intake Total 820 / 820
Output Total 500 / 500 350 / 350 1075 / 1075
Balance 320 / 320 -350 / -350 -1075 / -1075
Physical Exam
Physical Exam
GEN: No distress, sleeping but easy to awaken
HEENT: supple, anicteric, mmm
LUNGS: Breath sounds decreased at bases
CV: Reg, S1/S2, 1/6 syst LSB, no murmur
ABD: soft, BS+, NT/ND
EXT: No edema, lower extremities cool to touch
NEURO: Gross non-focal
SKIN: Ecchymosis bilateral arms and right knee
--- NOTE | 2024-11-17 14:21 | W.PN.HOSP.TC ---
Today's Communication/Plan
-
Started on Midodrine TID
BMP in AM
c/w regular diet
Assessment / Plan
Assessment / Plan
Physical Exam
General: No acute distress, chronically ill looking,
HEENT: Normocephalic, Atraumatic, EOMI, MMM
Respiratory: Clear to Auscultation bilaterally
Cardiac: S1, S2, positive systolic murmur.
GI: Soft, Nontender, Nondistended, Normal Bowel Sounds
Extremities: No Edema. Cold and mildly cyanotic fingers
Neuro: Forgetful, does not know details. Awake and oriented to self and surroundings at time. Patient followed commands
Psych: Calm, Cooperative
84-year-old with complex cardiac history including CAD status post stents, ischemic cardiomyopathy EF 20 to 25% status post ICD, proximal atrial fibrillation status post pacemaker and on anticoagulation, BPH, recent MSSA bacteremia of unknown source
with echocardiogram on October 29 showing no vegetations and otherwise unchanged echo from prior with a EF of 20 to 25% with no worsening valvular disease. He presents with weakness and worsening of his chronic lower back pain. No radicular
findings on examination. Was seen in the emergency department 5 days ago with similar complaints and at the time was given tramadol with minimal improvement. Patient today has a slightly lower blood pressure than baseline and is found to have
sodium of 124. Creatinine is 1.8 which is similar to but slightly worse than October 13 when the creatinine was 1.7 with a BUN of 49. Mild LFT abnormalities noted.
# Symptomatic orthostatic hypotension
Still + ortho hypotension today
continue to hold BP medications with diuretic
Adding Oral Midodrine ATC
Appreciate cardiology input
#Hyponatremia
better post Tolvaptan 11/16
-Suspect secondary to advanced heart failure with use of diuretic and poor oral intake
Continue with regular diet for now, encourage nutrition, patient is cachectic
Sodium 130
#Acute kidney injury superimposed on progressive chronic kidney disease IIIb
Cr 1.6-1.7 in October at [facility]. currently 1.8.
-Creatinine improved to 1.2, from 1.8 status post IV fluids
-Holding Lasix, holding spironolactone/lisinopril as above
#Chronic back pain
-Chronic low back pain with vertebral body endplate fractures in the lumbar and lower thoracic spine with moderate to severe loss of vertebral body height at T11 and L5. Disease also seen at L2-3, L4-5 joints.
-Continue oxycodone, Tylenol, PT/OT, add laxatives
-Will need to follow-up with pain management outpatient
# Elevated liver enzyme, suspect hepatic congestion secondary to advanced heart failure
#Chronic heart failure reduced ejection fraction ejection fraction 20 to 25% as of 10/2024
Significant symptomatic orthostatic hypotension, started on Midodrine TID
- holding diuretics and lisinopril
-Hold Coreg
-As needed midodrine
-Prognosis is guarded
- liberalize diet for now
Paroxysmal atrial fibrillation
- continue Xarelto. In setting of recent falls, consider discussing discontinuation
Continue to monitor, unable to tolerate blood pressure medication
DVT PPX - on Xarelto
Code status - Full Code will discuss with family goal of care + CODE STATUS
Total time spent to see the patient on the floor, examine the patient, review data and lab results, discuss treatment plan with patient, nursing staff around 55 minutes.
Anticipated Discharge: 24 - 48 hours
Subjective/Interval History
-
Date of Service: November 17, 2024
No chest pain
No sob while in bed
Objective Data
-
Labs:
Laboratory Results
11/17/24
07:33
Sodium 130 L
Potassium 3.8
Chloride 93 L
Carbon Dioxide 31 H
BUN 38 H
Creatinine 1.2
Glucose 87
Calcium 8.4
Vital Signs:
Vital Signs
Temp Pulse Resp BP Pulse Ox
97.3 F 78 16 115/59 99
11/17/24 11:45 11/17/24 13:37 11/17/24 11:45 11/17/24 13:37 11/17/24 11:45
I&O
11/16/24 11/17/24 11/18/24
06:59 06:59 06:59
Intake Total 820 / 820
Output Total 500 / 500 350 / 350 1075 / 1075
Balance 320 / 320 -350 / -350 -1075 / -1075
--- NOTE | 2024-11-17 14:34 | W.PN.NEPH.PH ---
Today's Communication / Plan
-
Fluid restriction/increased protein in his diet
Assessment/Plan
-
Assessment
Hypotension relative
Acute on chronic hyponatremia
Paroxysmal atrial fibrillation
Heart failure reduced ejection fraction ejection fraction 20 to 25% as of 10/2024
AYE
Back pain with fractures
Plan
Urine sodium 8 with urine awesome 504 as I suspect this is in the setting of decreased effective arterial blood volume and CHF. Patient is cachectic in appearance likely minimal p.o. intake as well.
holding spironolactone/lisinopril
holding lasix for now
light FR 48z for now
follow BMP
Creatinine better at 1.4. > 1.2
Samsca 15 mg yesterday with sodium improved to 130
He does not examine to be in heart failure though multifactorial with decreased ejection fraction and low solute intake as patient is cachectic in appearance.
Discussed with him about trying to increase protein in his diet to help as a solute diuresis. He seems to have a good understanding of our discussion
-
-
Date of Service: November 17, 2024
CC / HPI / ROS
-
Chief Complaint:
weakness
History of Present Illness:
Patient presents with weakness AYE and hyponatremia with a diminished ejection fraction cachectic in appearance decreased p.o. intake
Review of Systems:
No chest pain or shortness of breath
Labs
-
Labs:
WBC 5.4 10^3/uL (4.8-10.8) 11/15/24 07:14
RBC 3.64 10^6/uL (4.70-6.10) L 11/15/24 07:14
Hgb 11.0 g/dL (13.0-18.0) L 11/15/24 07:14
Hct 31.0 % (39.0-52.0) L 11/15/24 07:14
Plt Count 45 10^3/uL (130-400) L 11/15/24 07:14
Sodium 130 mmol/L (135-145) L 11/17/24 07:33
Potassium 3.8 mmol/L (3.5-5.1) 11/17/24 07:33
Chloride 93 mmol/L (98-107) L 11/17/24 07:33
Carbon Dioxide 31 mmol/L (22-30) H 11/17/24 07:33
BUN 38 mg/dl (9-20) H 11/17/24 07:33
Creatinine 1.2 mg/dL (0.7-1.3) 11/17/24 07:33
eGFR 59.26 11/17/24 07:33
Glucose 87 mg/dl (70-99) 11/17/24 07:33
Calcium 8.4 mg/dl (8.4-10.2) 11/17/24 07:33
Albumin 3.0 g/dl (3.5-5.0) L 11/15/24 07:14
Physical Exam
-
Vital Signs:
Vital Signs
Temp Pulse Resp BP Pulse Ox
97.3 F 78 16 115/59 99
11/17/24 11:45 11/17/24 13:37 11/17/24 11:45 11/17/24 13:37 11/17/24 11:45
Cardiovascular:: Regular rate and rhythm
Respiratory:: Bilateral: Coarse
Lung Excursion:: Normal
Abdomen:: Nontender and Soft
Bowel Sounds:: Normal
Extremity Edema:: None: Bilateral:
--- NOTE | 2024-11-17 14:51 | VATNOTE ---
Pt. with no iv needs at this time despite Tele status. PCN to discuss need for IV with MD.
--- NOTE | 2024-11-17 16:23 | PTCARENOTE ---
Pt AAO x3, forgetful; very [place]; can position self in bed; OOB to chair/BSC with assist x2; pt c/o 'dizzy' with OOb activity. Telemetry: currently A-paced rhythm. On room air- pulse ox 100%, no c/o SOB. Abd soft, flat; artis regular diet;
appetite poor. Voids clear yellow urine in urinal. Multiple wound dsgs to arms/sacrum/Lt upper back currently D/I. Resting in bed at present. Will continue to monitor.
--- NOTE | 2024-11-17 16:42 | CM ---
Chart reviewed and casework specialist met with patient, physical therapy are recommending skilled placement and referral sent to [facility] and patient was accepted at [facility]. Patient states he wants to return to [place]
and does not want to go to a skilled facility.
Plan; To follow with patient progress with physical therapy and assist with discharge planning needs.
[2024-11-17] MEDS: ProAmatine 5 MG PO (17:43)
[2024-11-17] MEDS: PROTONIX 40 MG PO (17:43)
[2024-11-17] MEDS: LIPITOR 80 MG PO (17:43)
[2024-11-18 03:40] VITALS: BP 125/57
--- NOTE | 2024-11-18 04:37 | DOWNTIME ---
There was a [employer] Client [employer] Engineer Downtime on 11/18/2024 from 0100 to 11/19/2023 at 0420 . Downtime documentation of patient's care, including medication administrations, has been reconciled in the electronic record per guidelines. Refer to the
patient's paper chart under the miscellaneous tab to see printed paper medication records and downtime forms.
[2024-11-18 06:00] VITALS: BMI 17.6
[2024-11-18 07:40] VITALS: BP 110/55; BP 116/53; PULSE 79; PULSE 95
[2024-11-18] MEDS: SENOKOT 8.6 MG PO ×2 (08:36→20:00)
[2024-11-18] MEDS: XARELTO 15 MG PO (08:36)
[2024-11-18] MEDS: LIDOCAINE 4% PATCH 1 PATCH TOPICAL (08:36)
[2024-11-18] MEDS: ProAmatine 5 MG PO ×3 (08:36→17:29)
[2024-11-18] MEDS: HYDROPHOR 1 APPLIC TOPICAL ×2 (08:37→20:00)
[2024-11-18] MEDS: MIRALAX 17 GRAMS PO (08:43)
--- NOTE | 2024-11-18 09:50 | W.PN.CARDCBS ---
Addendum entered and electronically signed by Long Kennedy MD 11/18/24 12:42:
I saw and examined the patient.
The Blood Tester Fowl's note was reviewed and I agree with the note.
Comment: Briefly, 84-year-old man past medical history of heart failure with severely reduced ejection fraction in the setting of ischemic cardiomyopathy who presents with orthostasis, hypotension and acute kidney injury suggestive of
dehydration/overdiuresis
Diuretics and guideline directed medical therapy have been held with improvement in his renal function
Blood pressure is marginal today despite midodrine
Continue to hold Coreg/lisinopril/spironolactone
Diuretics remain on hold, appreciate nephrology input
In regards to his history of atrial fibrillation, has been atrial paced here
Would continue on home amiodarone and Xarelto
Original Note:
Today's Communication / Plan
-
Lasix remains on hold and weight trending up, check pro-BNP
54 min face to face and coordination of care
Impression / Plan
-
Primary Care Provider: Dr Leidy Mora
Primary garment examiner: Dr Jillian Yanez
Impression:
Admitted with weakness 11/14/24
Hyponatremia
AYE on CKD 3b
Chronic HFrEF
Ischemic cardiomyopathy 25%
Recent admission to [facility] for sepsis 10/2024
CAD
PTCA unknown vessel 1991
STEMI s/p LAD prox/mid LAD STEPHAN 06/02/2023
s/p LAD mid STEPHAN & LCX at [facility] 07/11/2023
s/p Medtronic DC ICD 12/2023
HTN
Paroxysmal Afib
Chronic Xarelto OAC
Chronic amiodarone therapy
HLD
COPD
PVD
BPH/TURP
Former smoker
Echo 11/22/23: LAD distribution akinesis, EF 20 to 25%, mild MR/AI
NICOLAS 10/29/24: EF 20 to 25%, normal RV size and function, positive echo contrast with no evidence of thrombus, mild MR/TR/AI, moderate atherosclerotic plaque, nonmobile, no evidence of vegetation
Plan:
-Patient with generalized weakness and hyponatremia on admission and cardiology consulted for orthostasis.
-Improving orthostasis by VS 11/18/24 following initiation of midodrine 5 mg TID this admission.
-No evidence of acute HF and outpatient dose of Lasix 80 mg PO daily held for hypotension
-Weight is up 4 lbs from admission, but being weighed with a bed scale. Check pro-BNP, ordered by me
-Outpatient dose of lisinopril 5 mg daily help for hypotension
-Outpatient dose of spironolactone 25 mg daily held for hypotension
-Outpatient dose of Coreg 3.125 mg BID held for hypotension
-Patient with known paroxysmal Afib. Tele looks A paced as reviewed by me 11/18/24. Patient was taking amiodarone 200 mg daily prior to admission, but this was not on his med list although it appears no med rec was performed based on the red question
calvin next to all of his outpatient meds. QTc 458 ms on ECG 11/14/24 reviewed by me. Will restart amiodarone 200 mg daily on 11/18/24, ordered by me
-Patient with [employer]tr[employer] DC ICD and Dr. Lei increased base pacing rate to 75 on 11/17/24 to help increase cardiac output
-LFTs trending up as of 11/15/24. Recheck LFTs now, ordered by me
-Cre as high as 1.8 on admission, but improved to 1.2 as of 11/17/24 while Lasix, lisinopril and spironolactone have been on hold
Progress Note - Software Quality Tester
Subjective
Date of Service: November 18, 2024
Denies SOB or orthopnea
Objective
Labs:
11/15/24 07:14
Labs
Hgb 11.0 g/dL (13.0-18.0) L 11/15/24 07:14
Hct 31.0 % (39.0-52.0) L 11/15/24 07:14
Plt Count 45 10^3/uL (130-400) L 11/15/24 07:14
Sodium 130 mmol/L (135-145) L 11/17/24 07:33
Potassium 3.8 mmol/L (3.5-5.1) 11/17/24 07:33
BUN 38 mg/dl (9-20) H 11/17/24 07:33
Creatinine 1.2 mg/dL (0.7-1.3) 11/17/24 07:33
Glucose 87 mg/dl (70-99) 11/17/24 07:33
Vital Signs and I&O:
Vital Signs
Temp Pulse Resp BP Pulse Ox
97.4 F 77 18 116/53 93
11/18/24 07:40 11/18/24 08:36 11/18/24 07:40 11/18/24 08:36 11/18/24 07:40
Vital Signs
Temp Pulse Resp BP Pulse Ox
97.4 F 77 18 116/53 93
11/18/24 07:40 11/18/24 08:36 11/18/24 07:40 11/18/24 08:36 11/18/24 07:40
Intake & Output
11/16/24 11/17/24 11/18/24 11/19/24
06:59 06:59 06:59 06:59
Intake Total 820 / 820 480 / 480
Output Total 500 / 500 350 / 350 1325 / 1325 675 / 675
Balance 320 / 320 -350 / -350 -845 / -845 -675 / -675
Physical Exam
Physical Exam
GEN: AAO to person, place and situation
HEENT: mmm
LUNGS: RA, no audible wheeze
CV: SR on tele
ABD: ND
EXT: No edema B/L
NEURO: Gross non-focal
SKIN: No rash
--- NOTE | 2024-11-18 11:12 | W.PN.NEPH.PH ---
Today's Communication / Plan
-
Await labs
Assessment/Plan
-
Assessment
Hypotension relative
Acute on chronic hyponatremia
Paroxysmal atrial fibrillation
Heart failure reduced ejection fraction ejection fraction 20 to 25% as of 10/2024
AYE
Back pain with fractures
Plan
Remains on higher dose midodrine, would like to wean over time
holding spironolactone/lisinopril
May be able to restart low-dose Lasix once labs return
FR 48z for now
follow BMP
-
-
Date of Service: November 18, 2024
CC / HPI / ROS
-
Chief Complaint:
weakness
History of Present Illness:
AYE/creatinine down to 1.2 yesterday labs pending today
Sodium 130 yesterday
Blood pressure stable
Review of Systems:
No chest pain or shortness of breath
Labs
-
Labs:
WBC 5.4 10^3/uL (4.8-10.8) 11/15/24 07:14
RBC 3.64 10^6/uL (4.70-6.10) L 11/15/24 07:14
Hgb 11.0 g/dL (13.0-18.0) L 11/15/24 07:14
Hct 31.0 % (39.0-52.0) L 11/15/24 07:14
Plt Count 45 10^3/uL (130-400) L 11/15/24 07:14
eGFR 59.26 11/17/24 07:33
Physical Exam
-
Vital Signs:
Vital Signs
Temp Pulse Resp BP Pulse Ox
97.4 F 77 18 116/53 93
11/18/24 07:40 11/18/24 08:36 11/18/24 07:40 11/18/24 08:36 11/18/24 07:40
Cardiovascular:: Regular rate and rhythm
Respiratory:: Bilateral: Coarse
Lung Excursion:: Normal
Abdomen:: Nontender and Soft
Bowel Sounds:: Normal
Extremity Edema:: None: Bilateral:
[2024-11-18 11:16] LABS: ALT (SGPT) 84 U/L (0-50); AST (SGOT) 105 U/L (17-59); Albumin 3.4 g/dl (3.5-5.0); Alkaline Phosphatase 100 U/L (38-126); Blood Urea Nitrogen 34 mg/dl (9-20); Calcium 8.3 mg/dl (8.4-10.2); Carbon Dioxide 28 mmol/L (22-30); Chloride 92 mmol/L (98-107); Direct Bilirubin 0.6 mg/dl (0.0-0.4); Estimated Creatinine Clearance 44 ml/min; Glucose 66 mg/dl (70-99); Potassium 4.2 mmol/L (3.5-5.1); Sodium 128 mmol/L (135-145); Total Bilirubin 1.4 mg/dl (0.2-1.3); Total Protein 5.6 g/dl (6.3-8.2); eGFR > 60.00
[2024-11-18 11:26] VITALS: BP 108/53
--- NOTE | 2024-11-18 11:59 | W.PN.HOSP.TC ---
Addendum entered and electronically signed by Maurice Del Real MD 11/18/24 14:24:
Addendum
Son Yan called and was given updates.
End
Original Note:
Today's Communication/Plan
-
Aggressive treatment of sacral pressure wound
Another orthostatic measurement for tonight
Continue with midodrine. Avoid diuretics
Restrict fluid intake by encourage oral diet intake
Agree with amiodarone
Assessment / Plan
Assessment / Plan
Physical Exam
General: No acute distress, chronically ill looking,
HEENT: Normocephalic, Atraumatic, EOMI, MMM
Respiratory: Clear to Auscultation bilaterally
Cardiac: S1, S2, positive systolic murmur.
GI: Soft, Nontender, Nondistended, Normal Bowel Sounds
Extremities: No Edema. Cold and mildly cyanotic fingers
Neuro: Forgetful, does not know details. Awake and oriented to self and surroundings at time. Patient followed commands
Psych: Calm, Cooperative
# Symptomatic orthostatic hypotension
will continue monitoring.
continue to hold BP medications with diuretic
Adding Oral Midodrine ATC
Appreciate cardiology input
#moderate protein calorie malnutrition of chronic illness
#Hyponatremia
better post Tolvaptan 11/16
-Suspect secondary to advanced heart failure with ADH release. Off diuretics for few days but sometimes takes longer time to recover.
Continue with regular diet for now, fluid restriction, encourage oral nutrition, patient is cachectic
#Acute kidney injury superimposed on progressive chronic kidney disease IIIb
Cr 1.6-1.7 in October at [facility]. currently 1.8.
-Creatinine improved to 1.2, from 1.8 status post IV fluids
-Holding Lasix, holding spironolactone/lisinopril as above
# Known dementia possible Alzheimer's
Patient is forgetful to details and confused at times but mostly easy to reorient. Family is aware
No agitation
#Chronic back pain
-Chronic low back pain with vertebral body endplate fractures in the lumbar and lower thoracic spine with moderate to severe loss of vertebral body height at T11 and L5. Disease also seen at L2-3, L4-5 joints.
-Continue oxycodone, Tylenol, PT/OT, add laxatives
-Will need to follow-up with pain management outpatient
# sacral pressure injury seems to progress to stage II
# Elevated liver enzyme, suspect hepatic congestion secondary to advanced heart failure
#Chronic heart failure reduced ejection fraction ejection fraction 20 to 25% as of 10/2024
Significant symptomatic orthostatic hypotension, started on Midodrine TID
- holding diuretics and lisinopril
-Hold Coreg
-As needed midodrine
-Prognosis is guarded
- liberalize diet for now
Paroxysmal atrial fibrillation
- continue Xarelto. In setting of recent falls, consider discussing discontinuation
Continue to monitor, unable to tolerate blood pressure medications. He was started on amiodarone
DVT PPX - on Xarelto
Code status - Full Code will discuss with family goal of care + CODE STATUS
Total time spent to see the patient on the floor, examine the patient, review data and lab results, discuss treatment plan with patient, his daughter, nursing staff around 55 minutes.
Anticipated Discharge: 24 - 48 hours
Subjective/Interval History
-
Date of Service: November 18, 2024
No chest pain
Still weak
Objective Data
-
Labs:
Laboratory Results
11/18/24
09:49
Sodium 128 L
Potassium 4.2
Chloride 92 L
Carbon Dioxide 28
BUN 34 H
Creatinine 1.0
Glucose 66 L
Calcium 8.3 L
Total Bilirubin 1.4 H
AST 105 H
ALT 84 H
Alkaline Phosphatase 100
Vital Signs:
Vital Signs
Temp Pulse Resp BP Pulse Ox
97.6 F 75 16 108/53 93
11/18/24 11:26 11/18/24 11:26 11/18/24 11:26 11/18/24 11:26 11/18/24 11:26
I&O
11/17/24 11/18/24 11/19/24
06:59 06:59 06:59
Intake Total 480 / 480 240 / 240
Output Total 350 / 350 1325 / 1325 675 / 675
Balance -350 / -350 -845 / -845 -435 / -435
[2024-11-18] MEDS: PACERONE 200 MG PO (12:12)
--- NOTE | 2024-11-18 13:21 | PN.CDI ---
CDI
- -
CDI:
Physician Documentation Request
Admit Date: 11/16/24 08:17
Dear Doctor Nasima,
Please review the following and provide your response in the progress notes.
Clinical Indicators:
Miniature Model Maker, 11/18
#...RD able to visulize temporal wasting, apparent ribs,
#...protrusion of clavical and orbital area sunken in.
#Skin: sacrum Stage II and R-elbow stage III
#...weight loss of > 7.5% in 2 months and observed muscle and fat wasting pt meets
#...AND/ASPEN criteria for moderate protein calorie mlanutrition of chronic illness.
Based on the above and your clinical assessment, please clarify the patient's nutritional status:
Moderate Protein Calorie Malnutrition of Chronic Illness
Other (please specify)
Blair Criteria ([facility] Hospitalist 2017)
2 or more criteria must be present for either
non severe or severe malnutrition
Note that the criteria differs related to the
presence of an acute or chronic illness
Chronic Illness
Energy Intake Non Severe: <75% for >1 month
Severe: <75% for >1 month
Weight Loss Non Severe: 5% over 1 month
7.5% over 3 months
10% over 6 months
20% over 1 year
Severe: >5% over 1 month
>7.5% over 3 months
>10% over 6 months
>20% over 1 year
Body Fat Non Severe: Mild Loss
Severe: Severe Loss
Muscle Mass Non Severe: Mild Loss
Severe: Severe Loss
Use of terms such as suspected, likely, concern for, or probable (associated with a specific diagnosis that is being evaluated, monitored, or treated as if it exists) are acceptable and can be coded in the inpatient setting, when documented at the
time of discharge.
Thank you,
Divine Georges RN BSN CCDS
CDI Specialist
please contact via tiger text
Please use your independent medical judgment in providing your response.
[2024-11-18 14:21] LABS: NT-proBNP 12000 pg/ml
[2024-11-18 15:40] VITALS: BP 113/58
[2024-11-18] MEDS: LIPITOR 80 MG PO (17:29)
[2024-11-18] MEDS: PROTONIX 40 MG PO (17:29)
[2024-11-18] MEDS: LASIX 40 MG PO (17:29)
[2024-11-18 19:30] VITALS: BP 120/50
--- NOTE | 2024-11-18 20:00 | PTCARENOTE ---
Received pt AAO to self and hospital. Pt was able to answer the year within a few minutes, however patient does state 'I feel a little out of it today'. VSS. Rue dressing completed. Will continue to monitor
[2024-11-18 23:56] VITALS: BP 112/53
[2024-11-19] VITALS (7 sets, daily range): BP systolic 100–131; BP diastolic 49–59; BMI 17.6
[2024-11-19] MEDS: LIDOCAINE 4% PATCH 1 PATCH TOPICAL (08:54)
[2024-11-19] MEDS: PACERONE 200 MG PO (08:55)
[2024-11-19] MEDS: MIRALAX 17 GRAMS PO (08:55)
[2024-11-19] MEDS: XARELTO 15 MG PO (08:55)
[2024-11-19] MEDS: ProAmatine 5 MG PO ×3 (08:55→17:38)
[2024-11-19] MEDS: HYDROPHOR 1 APPLIC TOPICAL (08:55)
[2024-11-19] MEDS: SENOKOT 8.6 MG PO ×2 (08:55→20:18)
[2024-11-19] MEDS: LASIX 40 MG PO (08:55)
[2024-11-19 09:35] LABS: Hematocrit 32.1 % (39.0-52.0); Mean Corp Hgb Conc. 34.5 g/dL (33.0-37.0); Mean Corpuscular Hgb 30.3 pg (27.0-31.0); Mean Corpuscular Volume 87.9 fL (80.0-94.0); Mean Platelet Volume 11.3 fL (7.4-10.4); Platelet Count 79 10^3/uL (130-400); Red Blood Cell Count 3.63 10^6/uL (4.70-6.10); Red Cell Dist. Width 14.1 % (11.5-14.5); White Blood Cell Count 6.9 10^3/uL (4.8-10.8)
--- NOTE | 2024-11-19 10:25 | W.PN.HOSP.TC ---
Today's Communication/Plan
-
dc to SNF
Assessment / Plan
Assessment / Plan
Physical Exam
General: No acute distress, chronically ill looking,
HEENT: Normocephalic, Atraumatic, EOMI, MMM
Respiratory: Clear to Auscultation bilaterally
Cardiac: S1, S2, positive systolic murmur.
GI: Soft, Nontender, Nondistended, Normal Bowel Sounds
Extremities: No Edema. Cold and mildly cyanotic fingers
Neuro: Forgetful, does not know details. Awake and oriented to self and surroundings at time. Patient followed commands
Psych: Calm, Cooperative
# Symptomatic orthostatic hypotension
seems to improve
continue to hold BP medications
Started on Lasix
Adding Oral Midodrine ATC
Appreciate cardiology input
#moderate protein calorie malnutrition of chronic illness
#Hyponatremia
better post Tolvaptan 11/16
-Suspect secondary to advanced heart failure with ADH release. Off diuretics for few days.
Continue with regular diet for now, fluid restriction, encourage oral nutrition, patient is cachectic
#Acute kidney injury superimposed on progressive chronic kidney disease IIIb
Cr 1.6-1.7 in October at [facility]. currently 1.8.
-Creatinine improved to 1.2, from 1.8 status post IV fluids
-Held Lasix then resumed
, holding spironolactone/lisinopril as above
# Known dementia possible Alzheimer's
Patient is forgetful to details and confused at times but mostly easy to reorient. Family is aware
No agitation
#Chronic back pain
-Chronic low back pain with vertebral body endplate fractures in the lumbar and lower thoracic spine with moderate to severe loss of vertebral body height at T11 and L5. Disease also seen at L2-3, L4-5 joints.
-Continue oxycodone, Tylenol, PT/OT, add laxatives
-Will need to follow-up with pain management outpatient
# sacral pressure injury seems to progress to stage II
# Elevated liver enzyme, suspect hepatic congestion secondary to advanced heart failure
#Chronic heart failure reduced ejection fraction ejection fraction 20 to 25% as of 10/2024
Significant symptomatic orthostatic hypotension, started on Midodrine TID
- holding diuretics and lisinopril
-Hold Coreg
-As needed midodrine
-Prognosis is guarded
- liberalize diet for now
Paroxysmal atrial fibrillation
- continue Xarelto. In setting of recent falls, consider discussing discontinuation
Continue to monitor, unable to tolerate blood pressure medications. He was started on amiodarone
DVT PPX - on Xarelto
Code status - Full Code will discuss with family goal of care + CODE STATUS
Total dc time spent to see the patient on the floor, examine the patient, review data and lab results, discuss discharge/ treatment plan with patient, his daughter and son , nursing staff around 67 minutes.
Anticipated Discharge: Today
Subjective/Interval History
-
Date of Service: November 19, 2024
feels better
Objective Data
-
Labs:
Laboratory Results
11/19/24 11/19/24 11/19/24
07:10 09:00 09:55
WBC Cancelled 6.9
Hgb Cancelled 11.0 L
Hct Cancelled 32.1 L
Plt Count Cancelled 79 L D
Sodium Cancelled Pending
Potassium Cancelled Pending
Chloride Cancelled Pending
Carbon Dioxide Cancelled Pending
BUN Cancelled Pending
Creatinine Cancelled Pending
Glucose Cancelled Pending
Calcium Cancelled Pending
Total Bilirubin Cancelled Pending
AST Cancelled Pending
ALT Cancelled Pending
Alkaline Phosphatase Cancelled Pending
Vital Signs:
Vital Signs
Temp Pulse Resp BP Pulse Ox
97.7 F 76 20 105/50 97
11/19/24 06:57 11/19/24 08:55 11/19/24 06:57 11/19/24 08:55 11/19/24 06:57
I&O
11/18/24 11/19/24 11/20/24
06:59 06:59 06:59
Intake Total 480 / 480 480 / 480
Output Total 1325 / 1325 1175 / 1175 300 / 300
Balance -845 / -845 -695 / -695 -300 / -300
[2024-11-19 10:31] LABS: ALT (SGPT) 99 U/L (0-50); AST (SGOT) 106 U/L (17-59); Albumin 3.2 g/dl (3.5-5.0); Alkaline Phosphatase 102 U/L (38-126); Blood Urea Nitrogen 30 mg/dl (9-20); Carbon Dioxide 30 mmol/L (22-30); Chloride 93 mmol/L (98-107); Direct Bilirubin 0.5 mg/dl (0.0-0.4); Estimated Creatinine Clearance 40 ml/min; Glucose 107 mg/dl (70-99); Potassium 3.6 mmol/L (3.5-5.1); Sodium 127 mmol/L (135-145); Total Bilirubin 1.5 mg/dl (0.2-1.3); Total Protein 5.5 g/dl (6.3-8.2); eGFR > 60.00
--- NOTE | 2024-11-19 10:38 | W.PN.CARDCBS ---
Addendum entered and electronically signed by Parviz Lei MD 11/19/24 12:03:
84-year-old man admitted with weakness, orthostasis, hyponatremia, previously hospitalized in August at [facility] with sepsis and failure to thrive. He offers no complaints, feels less weak than when he came in. He is back on oral furosemide 40
mg a day
PMH: Ischemic cardiomyopathy EF 25%, recent sepsis admission, PAF on amiodarone and Xarelto, hypertension, hyperlipidemia, COPD, anterior WA with LAD PCI and stent 2022, circumflex PCI July 2023, dual-chamber ICD, BPH, cachexia and failure to
thrive
Current medications: Atorvastatin 80, pantoprazole 40 mg a day, rivaroxaban 15 mg a day, Senokot, lidocaine patch, MiraLAX, midodrine 5 3 times daily, amiodarone 200 daily and furosemide 40 mg a day orally
105/50, 131/49, heart rate 75 respiratory 20, no orthostatics today, yesterday 116/53 2 110/55 standing, with this 57.2 kg, which is stable, head neck exam unremarkable, cachectic, lungs are clear, regular rate and rhythm no obvious murmurs, neck
veins flat, extremities without edema
EKG today atrially paced rhythm with prolonged AV conduction, consider anterior WA
NICOLAS 10/29/2024: EF 20-25%, normal RV, mild MR/TR/AI, atherosclerotic plaque
Hemoglobin is 11, white count is 6.9, platelets are 79, had been 45 CMP is pending, proBNP yesterday was 12,000, no recent proBNP but 18,200 August 2023
Plan:
He appears improved as cardiac meds were held, now back on oral furosemide. Blood pressure is better on midodrine, also possibly related to increase in base rate of pacemaker.
No changes in cardiac regimen at this time.
From our standpoint okay to begin discharge planning.
As outpatient can consider reinitiation of some GDMT
Original Note:
Today's Communication / Plan
-
PT/OT
Getting ready for discharge, skilled rehab has been advised
Lower dose oral diuretic resumed
Impression / Plan
-
Primary Care Provider: Dr Leidy Mora
Primary assistant manager pt: Dr Jillian Yanez
Impression:
Admitted with weakness 11/14/24
Hyponatremia
AYE on CKD 3b
Chronic HFrEF
Ischemic cardiomyopathy 25%
Recent admission to [facility] for sepsis 10/2024
CAD
PTCA unknown vessel 1991
STEMI s/p LAD prox/mid LAD STEPHAN 06/02/2023
s/p LAD mid STEPHAN & LCX at [facility] 07/11/2023
s/p [employer] DC ICD 12/2023
HTN
Paroxysmal Afib
Chronic Xarelto OAC
Chronic amiodarone therapy
HLD
COPD
PVD
BPH/TURP
Former smoker
Elevated LFTs
Echo 11/22/23: LAD distribution akinesis, EF 20 to 25%, mild MR/AI
NICOLAS 10/29/24: EF 20 to 25%, normal RV size and function, positive echo contrast with no evidence of thrombus, mild MR/TR/AI, moderate atherosclerotic plaque, nonmobile, no evidence of vegetation
Plan:
-Patient with generalized weakness and hyponatremia on admission and cardiology consulted for orthostasis.
-Improving orthostasis by VS 11/18/24 following initiation of midodrine 5 mg TID this admission. Supine blood pressure this morning 105/50 (11/19/2024). Awaiting orthostatic BP check from today. Nursing staff reports patient becomes very unsteady
with low blood pressure when standing.
-Patient denies lightheadedness, syncope. Seems more alert today compared to when I saw him 2 days ago
-Patient with Medtronic DC ICD and Dr. Lei increased base pacing rate to 75 on 11/17/24 to help increase cardiac output
-No evidence of acute HF and outpatient dose of Lasix 80 mg PO daily held for hypotension
-Weight is up 4 lbs from admission, but being weighed with a bed scale.
-proBNP 40930, 11/18/2024. In review of previous labs, proBNP was 18,200 when he was admitted with acute on chronic heart failure 08/19/2023.
-Lasix was resumed yesterday at lower than home dose of 40 mg daily. Received dose yesterday and today.
-Outpatient dose of lisinopril 5 mg daily help for hypotension
-Outpatient dose of spironolactone 25 mg daily held for hypotension
-Outpatient dose of Coreg 3.125 mg BID held for hypotension
-Potassium 3.6 today, ordered KCl 20 mEq x 1
-Patient with known paroxysmal Afib. On amiodarone 200 mg daily (restarted yesterday, was not started on admission) and Xarelto 15 mg daily, appropriate dose of Xarelto based on creatinine clearance.
-Telemetry personally reviewed today: A-paced
-EKG today: Atrial paced, QTc 448 ms
-LFTs remain elevated and trending up, AST 106, ALT 99- consider stopping Amiodarone. No afib noted on telemetry.
-Cre as high as 1.8 on admission, but improved to 1.0 as of 11/19/24 while Lasix, lisinopril and spironolactone have been on hold
Progress Note - Dental Technician Instructor
Subjective
Date of Service: November 19, 2024
Restarted on Lasix 40 mg daily
Blood pressures remain lower, no significant orthostatic readings in past 24 hours
Denies lightheadedness, syncope but is very unsteady on feet
Objective
Labs:
11/19/24 09:00
11/19/24 09:55
Labs
Hgb 11.0 g/dL (13.0-18.0) L 11/19/24 09:00
Hct 32.1 % (39.0-52.0) L 11/19/24 09:00
Plt Count 79 10^3/uL (130-400) L D 11/19/24 09:00
Sodium 127 mmol/L (135-145) L 11/19/24 09:55
Potassium 3.6 mmol/L (3.5-5.1) 11/19/24 09:55
BUN 30 mg/dl (9-20) H 11/19/24 09:55
Creatinine 1.1 mg/dL (0.7-1.3) 11/19/24 09:55
Glucose 107 mg/dl (70-99) H 11/19/24 09:55
Vital Signs and I&O:
Vital Signs
Temp Pulse Resp BP Pulse Ox
97.7 F 76 20 105/50 97
11/19/24 06:57 11/19/24 08:55 11/19/24 06:57 11/19/24 08:55 11/19/24 06:57
Vital Signs
Temp Pulse Resp BP Pulse Ox
97.7 F 76 20 105/50 97
11/19/24 06:57 11/19/24 08:55 11/19/24 06:57 11/19/24 08:55 11/19/24 06:57
Intake & Output
11/17/24 11/18/24 11/19/24 11/20/24
06:59 06:59 06:59 06:59
Intake Total 480 / 480 480 / 480
Output Total 350 / 350 1325 / 1325 1175 / 1175 300 / 300
Balance -350 / -350 -845 / -845 -695 / -695 -300 / -300
Physical Exam
Physical Exam
GEN: AAO to person, place and situation
HEENT: mmm
LUNGS: RA, no audible wheeze or rales
CV: Regular rate and rhythm, no murmur
ABD: ND
EXT: No edema B/L
NEURO: Gross non-focal
SKIN: Significant bruising on upper extremities
[2024-11-19] MEDS: KCL 20 MEQ PO (11:28)
--- NOTE | 2024-11-19 12:27 | W.PN.NEPH.PH ---
Today's Communication / Plan
-
Samsca
Assessment/Plan
-
Assessment
Hypotension relative
Acute on chronic hyponatremia
Paroxysmal atrial fibrillation
Heart failure reduced ejection fraction ejection fraction 20 to 25% as of 10/2024
AYE
Back pain with fractures
Plan
Remains on higher dose midodrine, would like to wean over time
holding spironolactone/lisinopril
Samsca 15 mg
FR 48z for now
follow BMP
-
-
Date of Service: November 19, 2024
CC / HPI / ROS
-
Chief Complaint:
weakness
History of Present Illness:
AYE/creatinine down to 1. 1
Sodium down to 127
Blood pressure stable
Review of Systems:
No chest pain or shortness of breath
Labs
-
Labs:
WBC 6.9 10^3/uL (4.8-10.8) 11/19/24 09:00
RBC 3.63 10^6/uL (4.70-6.10) L 11/19/24 09:00
Hgb 11.0 g/dL (13.0-18.0) L 11/19/24 09:00
Hct 32.1 % (39.0-52.0) L 11/19/24 09:00
Plt Count 79 10^3/uL (130-400) L D 11/19/24 09:00
Sodium 127 mmol/L (135-145) L 11/19/24 09:55
Potassium 3.6 mmol/L (3.5-5.1) 11/19/24 09:55
Chloride 93 mmol/L (98-107) L 11/19/24 09:55
Carbon Dioxide 30 mmol/L (22-30) 11/19/24 09:55
BUN 30 mg/dl (9-20) H 11/19/24 09:55
Creatinine 1.1 mg/dL (0.7-1.3) 11/19/24 09:55
eGFR > 60.00 11/19/24 09:55
Glucose 107 mg/dl (70-99) H 11/19/24 09:55
Calcium 8.0 mg/dl (8.4-10.2) L 11/19/24 09:55
Ryi-M-Xzjlnbubrlj Pept [id number] pg/ml 11/18/24 09:49
Albumin 3.2 g/dl (3.5-5.0) L 11/19/24 09:55
Physical Exam
-
Vital Signs:
Vital Signs
Temp Pulse Resp BP Pulse Ox
97.4 F 76 18 116/56 94
11/19/24 11:52 11/19/24 11:52 11/19/24 11:52 11/19/24 11:52 11/19/24 11:52
Cardiovascular:: Regular rate and rhythm
Respiratory:: Bilateral: CTA
Lung Excursion:: Normal
Abdomen:: Nontender and Soft
Bowel Sounds:: Normal
Extremity Edema:: None: Bilateral:
[2024-11-19] MEDS: SAMSCA 15 MG PO (12:47)
--- NOTE | 2024-11-19 13:53 | CM ---
hotel recreational facilities manager reviewed patient's chart and patient wants to return to [facility] when stable, physical therapy are recommending skilled placement and referrals sent to [facility], [facility].
Plan To see if patient will gp to a skilled facility and then return to [facility] assisted [facility].
[2024-11-19] MEDS: PROTONIX 40 MG PO (17:37)
[2024-11-19] MEDS: LIPITOR 80 MG PO (17:38)
[2024-11-19] MEDS: HYDROPHOR TOPICAL (20:16)
[2024-11-20 03:21] VITALS: BP 125/47
[2024-11-20 04:38] VITALS: BMI 17.2
[2024-11-20 06:39] LABS: Blood Urea Nitrogen 29 mg/dl (9-20); Calcium 8.5 mg/dl (8.4-10.2); Carbon Dioxide 30 mmol/L (22-30); Chloride 92 mmol/L (98-107); Estimated Creatinine Clearance 33 ml/min; Glucose 78 mg/dl (70-99); Potassium 3.7 mmol/L (3.5-5.1); Sodium 130 mmol/L (135-145); eGFR 53.84
[2024-11-20 07:41] VITALS: BP 117/53
[2024-11-20] MEDS: HYDROPHOR 1 APPLIC TOPICAL (08:31)
[2024-11-20] MEDS: XARELTO 15 MG PO (08:31)
[2024-11-20] MEDS: ProAmatine 5 MG PO ×2 (08:32→13:25)
[2024-11-20] MEDS: LIDOCAINE 4% PATCH 1 PATCH TOPICAL (08:32)
[2024-11-20] MEDS: SENOKOT 8.6 MG PO (08:32)
[2024-11-20] MEDS: LASIX 40 MG PO (08:32)
[2024-11-20] MEDS: PACERONE 200 MG PO (08:32)
[2024-11-20] MEDS: MIRALAX 17 GRAMS PO (08:33)
--- NOTE | 2024-11-20 10:42 | W.PN.HOSP.TC ---
Today's Communication/Plan
-
dc
Assessment / Plan
Assessment / Plan
Physical Exam
General: No acute distress, chronically ill looking,
HEENT: Normocephalic, Atraumatic, EOMI, MMM
Respiratory: Clear to Auscultation bilaterally
Cardiac: S1, S2, positive systolic murmur.
GI: Soft, Nontender, Nondistended, Normal Bowel Sounds
Extremities: No Edema. Cold and mildly cyanotic fingers
Neuro: Forgetful, does not know details. Awake and oriented to self and surroundings at time. Patient followed commands
Psych: Calm, Cooperative
# Symptomatic orthostatic hypotension
seems to improve
continue to hold BP medications
Started on Lasix
Adding Oral Midodrine ATC
Appreciate cardiology input
#moderate protein calorie malnutrition of chronic illness
#Hyponatremia
better post Tolvaptan 11/16 and 11/19. Na at 130.
-Suspect secondary to advanced heart failure with ADH release. Off diuretics for few days.
Continue with regular diet for now, fluid restriction, encourage oral nutrition, patient is cachectic
#Acute kidney injury superimposed on progressive chronic kidney disease IIIb
Cr 1.6-1.7 in October at [facility]. currently 1.8.
-Creatinine improved to 1.2, from 1.8 status post IV fluids
-Held Lasix then resumed
, holding spironolactone/lisinopril as above
# Known dementia possible Alzheimer's
Patient is forgetful to details and confused at times but mostly easy to reorient. Family is aware
No agitation
#Chronic back pain
-Chronic low back pain with vertebral body endplate fractures in the lumbar and lower thoracic spine with moderate to severe loss of vertebral body height at T11 and L5. Disease also seen at L2-3, L4-5 joints.
-Continue oxycodone, Tylenol, PT/OT, add laxatives
-Will need to follow-up with pain management outpatient
# sacral pressure injury seems to progress to stage II
# Elevated liver enzyme, suspect hepatic congestion secondary to advanced heart failure
#Chronic heart failure reduced ejection fraction ejection fraction 20 to 25% as of 10/2024
Significant symptomatic orthostatic hypotension, started on Midodrine TID
-Unable to give goal-directed medical therapy due to symptomatic hypotension
-Continue on midodrine
-Daughter and son are fully aware of the guarded prognosis and advanced heart failure.
-Prognosis is guarded
- liberalize diet for now
Paroxysmal atrial fibrillation
- continue Xarelto. In setting of recent falls, consider discussing discontinuation
Continue to monitor, unable to tolerate blood pressure medications. He was started on amiodarone
DVT PPX - on Xarelto
Code status - Full Code will discuss with family goal of care + CODE STATUS
Total dc time spent to see the patient on the floor, examine the patient, review data and lab results, discuss discharge/ treatment plan with patient, his daughter and son , nursing staff around 67 minutes.
Anticipated Discharge: Today
Subjective/Interval History
-
Date of Service: November 20, 2024
No complaints, denies dizziness, chest pain or shortness of breath. Reports feeling normal
Objective Data
-
Labs:
Laboratory Results
11/20/24
06:03
Sodium 130 L
Potassium 3.7
Chloride 92 L
Carbon Dioxide 30
BUN 29 H
Creatinine 1.3
Glucose 78
Calcium 8.5
Vital Signs:
Vital Signs
Temp Pulse Resp BP Pulse Ox
97.5 F 75 22 117/69 100
11/20/24 07:41 11/20/24 08:32 11/20/24 07:41 11/20/24 08:32 11/20/24 08:47
I&O
11/19/24 11/20/24 11/21/24
06:59 06:59 06:59
Intake Total 480 / 480 380 / 380
Output Total 1175 / 1175 1100 / 1100
Balance -695 / -695 -720 / -720
--- NOTE | 2024-11-20 10:52 | CM ---
Addendum entered by Rosalina Craig 11/20/24 13:10:
[facility]
Report [phone]

Original Note:
desktop manager reviewed patient's chart and physical therapy are recommending skilled, referrals sent and director of casework spoke with patient again today and he is now agreeable to skilled placement and would like a bed at [facility], message left for
admissions at [facility] to check to see if they have a bed for patient today.
Plan; skilled placement waiting on a bed.
[2024-11-20 11:00] VITALS: BP 128/68
[2024-11-20 13:08] LABS: COVID-19 Antigen Negative (Negative)
--- NOTE | 2024-11-20 13:18 | W.PN.NEPH.PH ---
Today's Communication / Plan
-
Okay to discharge from renal standpoint on diuretics
Assessment/Plan
-
Assessment
Hypotension relative
Acute on chronic hyponatremia
Paroxysmal atrial fibrillation
Heart failure reduced ejection fraction ejection fraction 20 to 25% as of 10/2024
AYE
Back pain with fractures
Plan
Remains on higher dose midodrine, would like to wean over time
holding spironolactone/lisinopril
Samsca 15 mg
FR 48z for now
follow BMP
Okay to discharge from renal standpoint on diuretics
-
-
Date of Service: November 20, 2024
CC / HPI / ROS
-
Chief Complaint:
weakness
History of Present Illness:
AYE/creatinine down to 1. 1
Sodium down to 127
Blood pressure stable
Review of Systems:
No chest pain or shortness of breath
Labs
-
Labs:
WBC 6.9 10^3/uL (4.8-10.8) 11/19/24 09:00
RBC 3.63 10^6/uL (4.70-6.10) L 11/19/24 09:00
Hgb 11.0 g/dL (13.0-18.0) L 11/19/24 09:00
Hct 32.1 % (39.0-52.0) L 11/19/24 09:00
Plt Count 79 10^3/uL (130-400) L D 11/19/24 09:00
Sodium 130 mmol/L (135-145) L 11/20/24 06:03
Potassium 3.7 mmol/L (3.5-5.1) 11/20/24 06:03
Chloride 92 mmol/L (98-107) L 11/20/24 06:03
Carbon Dioxide 30 mmol/L (22-30) 11/20/24 06:03
BUN 29 mg/dl (9-20) H 11/20/24 06:03
Creatinine 1.3 mg/dL (0.7-1.3) 11/20/24 06:03
eGFR 53.84 11/20/24 06:03
Glucose 78 mg/dl (70-99) 11/20/24 06:03
Calcium 8.5 mg/dl (8.4-10.2) 11/20/24 06:03
Fqx-L-Ozlyvjlyeyx Pept [id number] pg/ml 11/18/24 09:49
Albumin 3.2 g/dl (3.5-5.0) L 11/19/24 09:55
Physical Exam
-
Vital Signs:
Vital Signs
Temp Pulse Resp BP Pulse Ox
97.3 F 77 13 128/68 95
11/20/24 11:00 11/20/24 11:00 11/20/24 11:00 11/20/24 11:00 11/20/24 11:00
Cardiovascular:: Regular rate and rhythm
Respiratory:: Bilateral: CTA
Lung Excursion:: Normal
Abdomen:: Nontender and Soft
Bowel Sounds:: Normal
Extremity Edema:: None: Bilateral:
--- NOTE | 2024-11-20 13:51 | W.PN.CARDCBS ---
Addendum entered and electronically signed by Alvaro Jeffries MD 11/20/24 16:23:
I saw and examined the patient.
The Clinical Pharmacy Technician's note was reviewed and I agree with the note.
Comment:
GEN: No distress, awake, Ox3
HEENT: supple, anicteric, mmm
LUNGS: CTA, no wheezes/rales
CV: Reg, S1/S2, 1/6 syst LSB, no gallop
ABD: soft, BS+, NT/ND
EXT: No edema
NEURO: Gross non-focal
SKIN: No rash
PLan:
Overall remains stable. Basal heart rate increased to 75 bpm and midodrine initiated.
Will decrease amiodarone to 100 mg daily. Okay for discharge.
Continue Xarelto.
Original Note:
Today's Communication / Plan
-
-reduce Amio to 100 mg daily
-ok for d/c from cardiac standpoint
-cardiology f/u arranged
Impression / Plan
-
Primary Care Provider: Dr Leidy Mora
Primary pipelines supervisor: Dr Jillian Yanez
Impression:
Admitted with weakness 11/14/24
Hyponatremia
AYE on CKD 3b
Chronic HFrEF
Ischemic cardiomyopathy 25%
Recent admission to [facility] for sepsis 10/2024
CAD
PTCA unknown vessel 1991
STEMI s/p LAD prox/mid LAD STEPHAN 06/02/2023
s/p LAD mid STEPHAN & LCX at [facility] 07/11/2023
s/p [employer] DC ICD 12/2023
HTN
Paroxysmal Afib
Chronic Xarelto OAC
Chronic amiodarone therapy
HLD
COPD
PVD
BPH/TURP
Former smoker
Elevated LFTs
Echo 11/22/23: LAD distribution akinesis, EF 20 to 25%, mild MR/AI
NICOLAS 10/29/24: EF 20 to 25%, normal RV size and function, positive echo contrast with no evidence of thrombus, mild MR/TR/AI, moderate atherosclerotic plaque, nonmobile, no evidence of vegetation
Plan:
-Patient with generalized weakness and hyponatremia on admission and cardiology consulted for orthostasis.
-Improving orthostasis by VS 11/18/24 following initiation of midodrine 5 mg TID this admission. Supine blood pressure this morning 105/50 (11/19/2024). Awaiting orthostatic BP check from today. Nursing staff reports patient becomes very unsteady
with low blood pressure when standing.
-Patient denies lightheadedness, syncope.
-Patient with [employer] DC ICD and Dr. Lei increased base pacing rate to 75 on 11/17/24 to help increase cardiac output
-No evidence of acute HF, outpatient dose of Lasix 80 mg initially held for hypotension. Lasix resumed 11/18/2024 at lower dose of 40 mg daily
-Weight down 2 lbs overnight, up 1 lb from admit -all wts on bedscale so ? accuracy
-proBNP 47100, 11/18/2024. In review of previous labs, proBNP was 18,200 when he was admitted with acute on chronic heart failure 08/19/2023.
-Outpatient dose of lisinopril 5 mg daily help for hypotension
-Outpatient dose of spironolactone 25 mg daily held for hypotension
-Outpatient dose of Coreg 3.125 mg BID held for hypotension
-Patient with known paroxysmal Afib. On amiodarone 200 mg daily and Xarelto 15 mg daily
-LFTs remain elevated and trending up, AST 106, ALT 99. consider reduce Amiodarone to 100 mg daily. Check LFTs 2 weeks after discharge. No afib noted on telemetry.
Progress Note - Glaze Grinder
Subjective
Date of Service: November 20, 2024
Blood pressure is improved today
awaiting bed for skilled rehab
Objective
Labs:
11/19/24 09:00
11/20/24 06:03
Labs
Hgb 11.0 g/dL (13.0-18.0) L 11/19/24 09:00
Hct 32.1 % (39.0-52.0) L 11/19/24 09:00
Plt Count 79 10^3/uL (130-400) L D 11/19/24 09:00
Sodium 130 mmol/L (135-145) L 11/20/24 06:03
Potassium 3.7 mmol/L (3.5-5.1) 11/20/24 06:03
BUN 29 mg/dl (9-20) H 11/20/24 06:03
Creatinine 1.3 mg/dL (0.7-1.3) 11/20/24 06:03
Glucose 78 mg/dl (70-99) 11/20/24 06:03
Vital Signs and I&O:
Vital Signs
Temp Pulse Resp BP Pulse Ox
97.3 F 77 13 128/68 95
11/20/24 11:00 11/20/24 13:25 11/20/24 11:00 11/20/24 13:25 11/20/24 11:00
Vital Signs
Temp Pulse Resp BP Pulse Ox
97.3 F 77 13 128/68 95
11/20/24 11:00 11/20/24 13:25 11/20/24 11:00 11/20/24 13:25 11/20/24 11:00
Intake & Output
11/18/24 11/19/24 11/20/24 11/21/24
06:59 06:59 06:59 06:59
Intake Total 480 / 480 480 / 480 380 / 380
Output Total 1325 / 1325 1175 / 1175 1100 / 1100
Balance -845 / -845 -695 / -695 -720 / -720
Physical Exam
Physical Exam
GEN: No distress, awake, sitting in chair, Ox3
HEENT: supple, anicteric, mmm
LUNGS: CTA, no wheezes/rales
CV: Reg, S1/S2, 1/6 syst LSB, no murmur
ABD: soft, BS+, NT/ND
EXT: No edema
NEURO: Gross non-focal
SKIN: No rash
--- NOTE | 2024-11-20 15:20 | W.DCSUMMARY ---
Discharge Summary
Discharge Data
Date of Admission: 11/14/24
Date of Discharge: 11/20/24
-
Pending Results: No
Hospital Course
84 years old male admitted with weakness and failure to thrive. Patient was found to have symptomatic hypotension. Patient was diagnosed with advanced cardiomyopathy with hypotension. There was no evidence of acute heart failure. Hypotension was
also felt secondary to possible side effects of diuretics/medications. His cardiac medications were put on hold including diuretics. Engineer System Administrator evaluated the patient and recommended midodrine treatment. Patient was started on 3 times a day of 5
mg midodrine. He was given mild IV fluid. He subsequently improved but continued to have orthostatic symptoms at times. Patient was also noted to have hyponatremia which was felt secondary to excess antidiuretic hormone from advanced heart
failure. Patient was given tolvaptan treatment and fluid restriction. She was followed by mid level game designer. Sodium stabilized at 130. He was started on low-dose Lasix to avoid heart failure exacerbation. His vital signs stabilized. He remained
hemodynamically stable. He was evaluated by physical therapy and recommended half-way facility placement. Patient has underlying dementia and did not have agitation. Patient was discharged in a stable condition.
Discharge Plan
-
Patient Disposition: [facility]/SNF
Discharge Diagnosis/Procedures: Orthostasis/ advanced heart failure : midodrine 5 mg TID this admission
Failure to thrive
Hyponatremia
AYE on CKD 3b
Chronic HFrEF
Ischemic cardiomyopathy LVEF 20-25%
Paroxysmal Afib
Chronic Xarelto OAC
Chronic amiodarone therapy
COPD
PVD
BPH/TURP
Former smoker
Diet: As tolerated and Restrict fluids to 48 oz
Blood Work: should get LFTs 2 weeks after discharge
Activity Restrictions/Additional Instructions:
Wound Care Instructions
R arm: clean with soap and water, Adaptic, abd pad and kerlix change q other day and prn drainage.
L elbow and heels: skin prep and adhesive foams change q 3 days and prn soilage.
R sacrum and L upper back: clean with soap and water, Silicone foams change q 3 days and prn soilage.
Air chair cushion when sitting, can take upon discharge
Referrals:
JENI URBAN MD [Family Provider] - in one to two weeks
Glendy Wagner CRNP [Specified Professional Personl] - 12/14/24 2:00 pm (you have an appointment with Dr Yanez's nurse practitioner at the [facility].)
Prescriptions:
New
furosemide 40 mg Tablet
40 mg PO DAILY Qty: 30 0RF
acetaminophen 325 mg Tablet
650 mg PO Q4HPRN PRN (Reason: mild pain/MOULTON/temp> 100.4F) Qty: 10 0RF
polyethylene glycol 3350 17 gram Powder In Packet
17 g PO DAILY Qty: 30 0RF
midodrine 5 mg Tablet
5 mg PO Q4HPRN PRN (Reason: sbp less than 100) Qty: 10 0RF
midodrine 5 mg Tablet
5 mg PO TID@0800,1300,1800 Qty: 90 0RF
amiodarone [Pacerone] 100 mg Tablet
100 mg PO DAILY Qty: 30 0RF
Continued
atorvastatin 80 mg tablet
80 mg PO QPM
pantoprazole 40 mg tablet,delayed release (DR/EC)
40 mg PO QPM
Xarelto 15 mg tablet
15 mg PO DAILY
magnesium oxide 400 mg magnesium Tablet
400 mg PO BID
Changed
senna 8.6 mg Capsule
8.6 mg PO HS Qty: 0 0RF
Discontinued
spironolactone 25 mg tablet
25 mg PO DAILY
carvedilol 3.125 mg tablet
3.125 mg PO BID
lisinopril 5 mg tablet
5 mg PO DAILY
furosemide 80 mg Tablet
80 mg PO DAILY Qty: 30 0RF
linezolid 600 mg Tablet
600 mg PO BID
tramadol 50 mg tablet
50 mg PO Q8H PRN (Reason: Pain) Qty: 14 0RF
Discharge Orders:
Discharge Patient (As Directed); Ordered 11/20/24
Ordered By: Maurice Del Real
Discharge Date and Time
Print Language: GREEK
[2024-11-20 15:38] VITALS: BP 129/61
--- NOTE | 2024-11-20 16:51 | PTCARENOTE ---
Report given to charge nurse at [facility].
== END 2024-11-20 17:38 | DRG 682 ==
LOC: 4 EAST ACU 08:17
PROVIDERS: Family Medicine; ADMITTING PHYSICIAN Internal Medicine; ATTENDING PHYSICIAN Internal Medicine; EMERGENCY PHYSICIAN Emergency Medicine; FAMILY PHYSICIAN Internal Medicine; OTHER PHYSICIAN Internal Medicine Cardiovascular Disease; OTHER PHYSICIAN Specialist
DX: N17.9 Acute kidney failure, unspecified (principal); L89.013 Pressure ulcer of right elbow, stage 3; L89.023 Pressure ulcer of left elbow, stage 3; E44.0 Moderate protein-calorie malnutrition; E87.1 Hypo-osmolality and hyponatremia; I50.22 Chronic systolic (congestive) heart failure; R64 Cachexia; Z68.1 Body mass index [BMI] 19.9 or less, adult; E78.00 Pure hypercholesterolemia, unspecified; I25.10 Atherosclerotic heart disease of native coronary artery without angina pectoris; T50.2X5A Adverse effect of carbonic-anhydrase inhibitors, benzothiadiazides and other diuretics, initial encounter; I48.0 Paroxysmal atrial fibrillation; I25.5 Ischemic cardiomyopathy; G89.29 Other chronic pain; R62.7 Adult failure to thrive; N40.0 Benign prostatic hyperplasia without lower urinary tract symptoms; N18.32 Chronic kidney disease, stage 3b; J44.9 Chronic obstructive pulmonary disease, unspecified; I73.9 Peripheral vascular disease, unspecified; I95.1 Orthostatic hypotension; M54.50 Low back pain, unspecified; I12.9 Hypertensive chronic kidney disease with stage 1 through stage 4 chronic kidney disease, or unspecified chronic kidney disease; G30.9 Alzheimer's disease, unspecified; F02.80 Dementia in other diseases classified elsewhere, unspecified severity, without behavioral disturbance, psychotic disturbance, mood disturbance, and anxiety; L89.152 Pressure ulcer of sacral region, stage 2; I25.2 Old myocardial infarction; Z87.891 Personal history of nicotine dependence; Z95.810 Presence of automatic (implantable) cardiac defibrillator; Z95.5 Presence of coronary angioplasty implant and graft; Z79.82 Long term (current) use of aspirin; Z79.01 Long term (current) use of anticoagulants; Z79.899 Other long term (current) drug therapy
CPT/HCPCS: 80048; 80053; 80076; 81003; 81015; 82248; 82533; 82607; 83735; 83880; 83935; 84300; 84443; 85025; 85027; 87086; 87811; 93005; 96361; 96374; 96375; 97163; 97530; 99285

== ENCOUNTER 2024-11-29 22:09 | Inpatient (IN) | payer MEDICARE, OTHER, SELFPAY ==
[2024-11-29] VITALS (7 sets, daily range): BP systolic 82–123; BP diastolic 45–89; BMI 19.4
--- NOTE | 2024-11-29 19:16 | ED.GENMED ---
History of Present Illness
General
Chief Complaint: Breathing Problem
Time Seen by Provider: 11/29/24 19:09
History of Present Illness
History of Present Illness:
Patient presents to the emergency department with hypoxia and shortness of breath. Symptoms came on fairly suddenly this patient was pushing a chair around at his facility. He notes he was feeling short of breath and was found to be hypoxic. On
arrival patient is awake alert and able to provide history. He denies any chest pain or leg swelling. States he does occasionally get short of breath with exertion.
Past History
Past History
ED Past Medical History: CAD, CHF, HTN, Hypercholesterolemia, WI (92) and Other (BPH)
ED Past Surgical History: Cardiac (Angioplasty) and Urological (TURP)
Social History
Tobacco: Smoker
Alcohol: None
Drug: None
Personal:
Living: alone
Phy Exam
Physical Exam
Physical Exam:
GENERAL APPEARANCE: Pale appearing, in no distress.
EYES lids/conjunctiva normal
EARS/NOSE/THROAT Mucous membranes moist, uvula midline without oral pharyngeal erythema, exudate or swelling
HEAD/NECK normocephalic atraumatic, neck is supple.
RESPIRATORY mild increase in respiratory effort, he has diffuse rhonchi and slight wheezing. He is saturating in the 80s on a nonrebreather
CARDIAC tachycardia, no edema.
ABDOMINAL Soft, ND/NT. No pulsatile masses on exam, rebound tenderness, Goins sign or pain over Mcburney's point.
MUSCLES/EXTREMITIES No abnormal range of motion, no swelling.
SKIN Warm, pink and dry. No rashes
NEUROLOGICAL Speech is clear and appropriate. Normal level of consciousness. 5/5 strength in all extremities.
Scores
Heart Failure Risk
Heart Failure Risk Score: Yes
History of Stroke or TIA: No
History of intubation for respiratory distress: No
Heart rate on ED arrival >/= 110: No
SaO2 <90% on arrival on room air: Yes
HR >/=110 during 3min walk test (or too ill to perform test): No
ECG has acute ischemic changes: No
Urea >/=12mmol/L (BUN 33.6mg/dL): No
Serum CO2>/=35mmol/L: No
Troponin I or T elevated to WI Level (0.4mg/dL): Yes
NT-proBNP >/=5,000ng/L (5,000pg/ml): Yes
HF Risk Score: 4
Admission Status: HIGH RISK 26.1% Consider SNF treatment or admission to hospital
Course
Orders/Labs/Results
Orders:
Orders
11/29/24 19:12
Electrocardiogram (*1) Urgent
Reason for Study: Other
Other Reason for Exam: Respiratory Distress
Cardiac Monitoring- Treatment ONCE
EKG- Treatment ONCE
IV Insert/Care/Rem.- Treatment PRN
CR Chest Portable - 1 View Urgent
Comment:
Reason For Exam: respiratory distress
Reason Study Needs to be Portable: Patient Unstable
O2 Therapy [RESP] Urgent
Titrate/Wean O2 to maintain O2 sat greater than (%): 93
Special Instructions: TO MAINTAIN CONTINUOUS O2 SATS >/= 93%
Pulse Ox/cont/shift [RESP] Urgent
Quantity: 1
Special Instructions: continuous pulse ox
11/29/24 19:15
O2 Therapy [RESP] Urgent
Titrate/Wean O2 to maintain O2 sat greater than (%): 90
11/29/24 19:22
Complete Blood Count/With Diff Urgent
Comprehensive Metabolic Panel Urgent
Lactate Level [Lactic Acid] Urgent
NT-proBNP Urgent
Troponin I Urgent
Blood Culture Q30M
ALFONSO Source: Blood/Venous
Specimen Description:
Blood Culture Q30M
ALFONSO Source: Blood/Venous
Specimen Description:
11/29/24 19:34
Midodrine [ProAmatine] 5 mg PO NOW STA
11/29/24 19:52
Azithromycin 500 mg/250 ml [Zithromax Infusion] 500 mg in 250 ml IV NOW
CefTRIAXone [Rocephin] 1,000 mg IV NOW STA
11/29/24 20:19
Furosemide [Lasix] 20 mg IV NOW STA
11/29/24 21:40
COVID-19 Antigen Stat
Source: Nasal Swab
Influenza A+B Rapid Molecular Stat
ALFONSO Source: Nasal Swab
Specimen Description:
11/29/24 21:48
Admit/Transfer Patient As Directed
Co-Sign Provider:
Level of Care: Inpatient admission
Assign to:: IMU- Intermediate Care
Physician / Group: hospitalist
Diagnosis: hypoxic respiratory failure
Reason for Hospitalization: hypoxic respiratory failure
Expected length of stay greater than two midnights?: Yes
ELOS- Estimated Length of Stay in days: 2
I certify the patient meets the requirements for IP care: Yes
Vancomycin [Vancocin] 1,500 mg 0.9% Sodium Chloride 500 ml [Nss] 500 ml IV NOW
PRN Pain Medication Management As Directed
May give lesser potent ordered pain med per pt: Yes
preference::
Protocol:: Medication orders for pain may be administered in a
manner that supports deferring to patient preference
when the pt is:
- Requesting an ordered lesser potent pain medication.
Least to most potent pain medications are defined
as: acetaminophen < NSAID < tramadol < opioids
(morphine, oxycodone, hydromorphone).
- Requesting a lesser dose of the same medication IF
ORDERED.
- Requesting a less intrusive route of administration
if both routes are prescribed by the provider (PO <
IV).
11/29/24 21:49
Code Status As Directed
Resuscitation Status: Full Code
11/29/24 22:00
Flush (0.9% Sodium Chloride) [Flush (Nss)] See Dose Instructions IV PER PROTOCOL
11/29/24 22:06
Procalcitonin Stat
PCT Algorithmm Indication: Respiratory
Abnormal Lab Results
11/29/24
19:22
WBC 15.6 H 10^3/uL
(4.8-10.8)
RBC 3.92 L 10^6/uL
(4.70-6.10)
Hgb 11.8 L g/dL
(13.0-18.0)
Hct 36.5 L %
(39.0-52.0)
MCHC 32.3 L g/dL
(33.0-37.0)
RDW 18.1 H %
(11.5-14.5)
Abs Immat Gran (auto) 0.1 H 10^3/uL
(0-0.05)
Absolute Neuts (auto) 14.0 H 10^3/uL
(1.4-6.5)
Absolute Lymphs (auto) 0.8 L 10^3/uL
(1.2-3.4)
Immature Gran % 0.9 H %
(0-0.5)
Neutrophils % 89.9 H %
(42.2-75.2)
Lymphocytes % 4.9 L %
(20.5-51.1)
Sodium 132 L mmol/L
(135-145)
Chloride 96 L mmol/L
(98-107)
Glucose 241 H mg/dl
(70-99)
Lactic Acid 5.5 H* mmol/L
(0.7-2.0)
Total Bilirubin 1.4 H mg/dl
(0.2-1.3)
Alkaline Phosphatase 157 H U/L
(38-126)
Troponin I 0.168 H* ng/ml
Total Protein 5.9 L g/dl
(6.3-8.2)
11/29/24 19:22
11/29/24 19:22
Vital Signs
Initial and Last Documented VS:
Initial Vital Signs
Temp Pulse BP Pulse Ox
97.6 F 107 108/66 82
11/29/24 19:03 11/29/24 19:03 11/29/24 19:03 11/29/24 19:03
Last Documented Vital Signs
Temp Pulse Resp BP Pulse Ox
97.6 F 88 25 123/65 91
11/29/24 19:03 11/29/24 20:11 11/29/24 19:15 11/29/24 20:11 11/29/24 19:37
*Critical Care Note
Total Time (30-74mins, 75-104mins- exclusive of procedures): Not Applicable
ED Attending Note
ED Attending Note
ED Attending Note:
Patient presents to the emergency department with acute hypoxic respiratory failure. Recent admission for hypotension and cardiomyopathy. He was started on midodrine and weaned down his diuretics and he was given a bolus of fluid while here.
Suspect this fall may have contributed to pulmonary edema in the setting of cardiomyopathy. He does not have any significant peripheral edema however. X-ray with bilateral infiltrates which could indicate pulmonary edema versus multifocal
pneumonia. With elevation in white blood cell count and lactic acid will treat for sepsis with antibiotics. Patient given midodrine to help supplement his blood pressure will need some diuresis as well. Patient requiring high flow nasal cannula
for oxygenation
not giving 30cc /kg IVF for sepsis given clinical concern for CHF
-
Portions of this chart may have been created with voice recognition software.� Occasional wrong word or��sound alike� substitutions may have occurred due to the inherent limitations of voice recognition software.
Discharge Plan
Departure
Patient Disposition: Admit
Date of Disposition: 11/29/24
Time of Disposition: 20:23
Presentation/result/management discussed w/ accepting MD/DO: Hospitalist
Discharge Problem:
Acute hypoxic respiratory failure, CHF (congestive heart failure), Pneumonia, Sepsis
Interventions
Interventions:
*Risk Screen - Suicide Last Done: 11/29/24 19:28
*General Assessment Last Done: 11/29/24 19:27
*Neglect/Abuse Screening Last Done: 11/29/24 19:28
*ED- Fall Risk Assessment Last Done: 11/29/24 19:27
*ED COVID-19 Vaccine History Last Done: 11/29/24 19:28
ED- Cardiac Assessment Last Done: 11/29/24 19:15
ED- Pulmonary Assessment Last Done: 11/29/24 19:15
[2024-11-29 19:42] LABS: % Basophils 0.4 % (0-2); % Eosinophils 0.1 % (0-6); % Immature Granulocytes 0.9 % (0-0.5); % Lymphocytes 4.9 % (20.5-51.1); % Monocytes 3.8 % (1.7-9.3); % Neutrophils 89.9 % (42.2-75.2); Absolute Basophils 0.1 10^3/uL (0-0.2); Absolute Immature Granulocytes 0.1 10^3/uL (0-0.05); Absolute Lymphocytes 0.8 10^3/uL (1.2-3.4); Absolute Monocytes 0.6 10^3/uL (0.1-0.6); Hematocrit 36.5 % (39.0-52.0); Hemoglobin 11.8 g/dL (13.0-18.0); Mean Corp Hgb Conc. 32.3 g/dL (33.0-37.0); Mean Corpuscular Hgb 30.1 pg (27.0-31.0); Mean Corpuscular Volume 93.1 fL (80.0-94.0); Mean Platelet Volume 9.3 fL (7.4-10.4); Nucleated Red Blood Cells % 0 % (-); Platelet Count 273 10^3/uL (130-400); Red Blood Cell Count 3.92 10^6/uL (4.70-6.10); Red Cell Dist. Width 18.1 % (11.5-14.5); White Blood Cell Count 15.6 10^3/uL (4.8-10.8)
[2024-11-29 19:56] LABS: Lactic Acid 5.5 mmol/L (0.7-2.0)
[2024-11-29 19:59] LABS: ALT (SGPT) 30 U/L (0-50); AST (SGOT) 40 U/L (17-59); Albumin 3.5 g/dl (3.5-5.0); Alkaline Phosphatase 157 U/L (38-126); Blood Urea Nitrogen 20 mg/dl (9-20); Calcium 8.8 mg/dl (8.4-10.2); Carbon Dioxide 26 mmol/L (22-30); Chloride 96 mmol/L (98-107); Estimated Creatinine Clearance 36 ml/min; Glucose 241 mg/dl (70-99); Potassium 4.9 mmol/L (3.5-5.1); Sodium 132 mmol/L (135-145); Total Bilirubin 1.4 mg/dl (0.2-1.3); Total Protein 5.9 g/dl (6.3-8.2); eGFR 53.84
[2024-11-29 20:08] LABS: NT-proBNP > 27000 pg/ml; Troponin I 0.168 ng/ml
[2024-11-29] MEDS: ProAmatine 5 MG PO (20:11)
[2024-11-29] MEDS: ROCEPHIN 1000 MG IV (20:11)
[2024-11-29] MEDS: ZITHROMAX INFUSION 250 IV (20:21)
[2024-11-29] MEDS: LASIX 20 MG IV (20:42)
--- NOTE | 2024-11-29 21:28 | HPS.HSE ---
Family Physician
-
Family Physician: Shadi Lyons, DO
Chief Complaint
-
Shortness of breath
History of Present Illness
This is an 84-year-old male with past medical history of CAD status post STEMI in 2022 with LAD stent placement, staged mid LAD and circumflex stents, ischemic cardiomyopathy with EF of around 20 to 25% status post ICD and pacemaker, paroxysmal
atrial fibrillation on Xarelto and amiodarone, hypertension, hyperlipidemia, CKD, recurrent falls who admitted here 1 week ago with weakness, ultimately thought to be secondary to symptomatic hypotension in the setting of advanced cardiomyopathy.
He was started on midodrine and started again on low-dose Lasix to avoid acute CHF exacerbations and now returns with acute episode of shortness of breath that started suddenly today.
Patient had been doing well at rehab according to family members. He had normal activities up until today. Patient does report some ankle edema. Reported that he was moving an object when he felt really short of breath. He denies having any
chest pain. He denies palpitations. Was apparently pushing a wheelchair when he became severely short of breath suddenly, found to be hypoxic and came to the emergency department on 3 L nonrebreather satting 60%. He was speaking in full sentences
but obviously short of breath.
Has had no recent fevers or chills. Has been tolerating food well and has no history of aspiration.
He was found to have urinary retention at the rehab 1 year ago and was placed on Acosta catheter.
In the emergency department he was afebrile, blood pressure was 120/60 with a pulse of 88 and he was satting 98% on high flow. Chest x-ray shows multifocal infiltrates concerning for right upper lobe and right lower lobe pneumonia as well as
pulmonary interstitial edema. He is ECG shows normal sinus rhythm with left bundle branch. This is new compared to prior. Troponin was elevated at 0.168, he has chronically elevated troponin this is slightly higher than his normal baseline of
around 0.1. BNP was markedly elevated at over 27,000. Lactic acid was elevated at 5.5. He has white count of 15.6 hemoglobin and platelets were normal. Electrolytes, stable with a sodium of 132 similar to prior and potassium of 4.9 with normal
chloride and bicarb. BUN and creatinine very similar to prior.
Medical History
Past Medical History
Past Medical History: Reports Arrhythmia (paroxysmal afib), CAD (Status post MT, status post multivessel angioplasty with stents), CHF (EF 20 - 25%, s/p ICD PPM), HTN, Hypercholesterolemia and Other (Nephrolithiasis, BPH)
Past Surgical History: Reports Tonsilectomy, Urological (TURP, bladder surgery with calculi removal) and Other (Angioplasty with stents in the heart, TURP.)
Social History
Tobacco: Non-smoker
Alcohol: None
Drug: None
Personal: Single
Living: Assisted Living
Employment: Retired
Family History
Family History: CAD
Allergies / Home Medications
Allergies reflects when Allergies were last updated in boo-box.
Home Medications with original date entered in boo-box
Allergy/Medication List:
Allergies
Allergy/AdvReac Type Severity Reaction Status Date / Time
No Known Allergies Allergy Verified 11/09/24 13:12
Home Medications
atorvastatin 80 mg tablet 80 mg PO QPM High Cholesterol 08/19/23
magnesium oxide 400 mg PO BID Supplement 08/19/23
pantoprazole 40 mg tablet,delayed release 40 mg PO QPM Gastrointestinal Issue 08/19/23
rivaroxaban 15 mg tablet (Xarelto) 15 mg PO DAILY Blood Clot Prevention/Tx 08/19/23
acetaminophen 325 mg tablet 650 mg (2 x 325 mg) PO Q4HPRN PRN mild pain/MOULTON/temp> 100.4F #10 tabs 11/20/24
amiodarone 100 mg tablet (Pacerone) 100 mg PO DAILY #30 tabs 11/20/24
furosemide 40 mg tablet 40 mg PO DAILY #30 tabs 11/20/24
midodrine 5 mg tablet 5 mg PO Q4HPRN PRN sbp less than 100 #10 tabs 11/20/24
midodrine 5 mg tablet 5 mg PO TID@0800,1300,1800 #90 tabs 11/20/24
polyethylene glycol 3350 17 gram oral powder packet 17 g PO DAILY #30 ea 11/20/24
sennosides 8.6 mg capsule (senna) 8.6 mg PO HS Constipation #0 caps 11/20/24
bisacodyl 10 mg rectal suppository (Dulcolax (bisacodyl)) 10 mg MN DAILYPRN PRN IF NO BM AFTR MOM 11/29/24
magnesium hydroxide 400 mg/5 mL oral suspension (Milk of Magnesia) 2,400 mg PO DAILYPRN PRN IF NO BM BY 2ND DAY 11/29/24
sodium phosphates 19 gram-7 gram/118 mL enema (Fleet Enema) 118 ml MN DAILYPRN PRN IF NO BM AFTR DULCOLAX 11/29/24
zinc oxide 20 % topical paste 1 ea topical TID SACRUM,COCCYX BUTTOCK 11/29/24
Review of Systems
-
Constitutional: Reports No Symptoms
EENT: Reports No Symptoms
Respiratory: Reports Trouble Breathing
Cardiac: Reports No Symptoms
Abdomen/GI: Reports No Symptoms
: Reports No Symptoms
Musculoskeletal: Reports No Symptoms
Neurological: Reports No Symptoms
Endocrine: Reports No Symptoms
Hematologic/Lymphatic: Reports No Symptoms
Psych: Reports No Symptoms
Physical Exam
Vital Signs
Vital Signs
Temp Pulse Resp BP Pulse Ox
97.6 F 88 25 123/65 91
11/29/24 19:03 11/29/24 20:11 11/29/24 19:15 11/29/24 20:11 11/29/24 19:37
Physical Exam
General: Respiratory Distress
HEENT: NormoCephalic, Anicteric, Atraumatic, PERRLA, No Ptosis and Oxygen
Respiratory: Crackles
Cardiac: S1/S2 and Regular Rhythm; No Murmur or Gallop
GI: Soft, Non Tender, Non Distended and Normal Bowel Sounds
Rectal: Deferred by Provider
Genito-urinary: Deferred by me
Musculoskeletal: No Clubbing, No Cyanosis, Edema, Left Lower Extremity (trace ankle edema) and Edema, Right Lower Extremity (trace ankle edema)
Skin: Warm
Neuro: AO x 3 and Nonfocal/grossly intact
Hematologic/Lymphatic: No Lymphadenopathy
Psych: Calm
Laboratory Results
-
11/29/24 19:22
11/29/24 19:22
Laboratory Results
Lactic Acid 5.5 mmol/L (0.7-2.0) H* 11/29/24 19:22
Total Bilirubin 1.4 mg/dl (0.2-1.3) H 11/29/24 19:22
AST 40 U/L (17-59) 11/29/24 19:22
ALT 30 U/L (0-50) 11/29/24 19:22
Alkaline Phosphatase 157 U/L (38-126) H 11/29/24 19:22
Troponin I 0.168 ng/ml H* 11/29/24 19:22
Data Reviewed
-
Diagnostic Radiology: Image Personally Visualized and interpreted and Report Reviewed by me
Medical Tests (Nuc Med, Echo, EKG etc): Image Personally Visualized and interpreted
Lab Data: Labs Reviewed by me
Old Records: Reviewed
Impression/Plan
-
IMPRESSION:
84-year-old with complex cardiac history including CAD status post stents, ischemic cardiomyopathy EF 20 to 25% status post ICD, proximal atrial fibrillation status post pacemaker and on anticoagulation, BPH, recent MSSA bacteremia of unknown source
with echocardiogram on October 29 showing no vegetations and otherwise unchanged echo from prior with a EF of 20 to 25% with no worsening valvular disease, admitted here last week with hyponatremia, weakness and hypotension thought secondary to
hypovolemia and orthostasis and started on midodrine comes in with acute SOB that seem to begin suddenly today. Xray c/w pneumonia vs flash pulmonary edema. New LBBB on ECG compared to prior which was paced rhythm. Trop increased to 0.16 from
around 0.12. High oxygen requirment with marked elevated BNP. Lactic acid 5.5. BP has remained stable. Suspect flash pulmonary edema, vs ischemia vs pneumonia or combination. Suspect lactic acid elevation is secondary to hypoxia.
PLAN:
Hypoxia - Multifocal pneumonia w/ possible flash edema
- admit to IMU
- continue HI Flow for now as WOB and oxygen is well maintained
- check procal
- IV vancomycin/ceftriaxone and azithromycin empirically
- mrsa swab
- checking covid/flu
- NEBS RTC for now
CHF - Possibly flash edema, EF 20%, now has ankle edema compared to prior and further BNP elevation. Crackles on exam c/w CHF. New LBBB and increase troponin which may be due to focal ischemia versus hypoxia. No chest pain
- diuresis as tolerated, 20mg iv lasix given in ED
- 40m iv lasix daily
- may need levophed to maintain blood pressures.
- start levophed if SBP < 90 or map < 65
- continue midodrine tid
- trend troponin
- continue Xarelto for now
- renal function has remained stable
Currently sinus s/p PPM
- continue amiodarone 100 daily
- Xarelto
DVT PPX - on Xarelto
code Status - Full Code
[2024-11-29 22:02] LABS: COVID-19 Antigen Negative (Negative)
[2024-11-29] MEDS: VANCOCIN 530 MG IV (22:10)
[2024-11-29 22:47] LABS: Procalcitonin 0.47 ng/ml (0.0-0.25)
[2024-11-30] VITALS (13 sets, daily range): BP systolic 102–124; BP diastolic 55–99; PULSE 82; BMI 19.4; BMI 17.6; BMI 17.7
[2024-11-30] MEDS: SENOKOT 8.6 MG PO ×2 (00:18→20:54)
[2024-11-30 00:29] LABS: Lactic Acid 3.7 mmol/L (0.7-2.0)
[2024-11-30] MEDS: HEPARIN 25000 UNITS/250 ML IV (02:03)
[2024-11-30] MEDS: ASPIRIN 325 MG PO (02:03)
[2024-11-30 02:11] LABS: Hematocrit 35.6 % (39.0-52.0); Hemoglobin 11.8 g/dL (13.0-18.0); Mean Corp Hgb Conc. 33.1 g/dL (33.0-37.0); Mean Corpuscular Hgb 30.2 pg (27.0-31.0); Mean Platelet Volume 9.6 fL (7.4-10.4); Platelet Count 240 10^3/uL (130-400); Red Blood Cell Count 3.91 10^6/uL (4.70-6.10); Red Cell Dist. Width 18.2 % (11.5-14.5); White Blood Cell Count 14.3 10^3/uL (4.8-10.8)
--- NOTE | 2024-11-30 02:16 | W.PN.UPDATE ---
Update Note
Progress Note Update
Patient noted with increased troponin from 0.168 to 6.170. Denies CP. No ischemia noted on EKG. Heparin infusion with ACS protocol along with ASA 325mg x1. Reviewed with Manufacturing Engineer Chief. Cardiology already consulted.
--- NOTE | 2024-11-30 02:31 | PTCARENOTE ---
received patient from ED. Patient is AAOx2 thought the month was january, can be forgetful/confused at times. Patient troponin came back as 6.170, patient denies chest pain and STUDENT LOAN COUNSELOR made aware. EKG and heparin gtt ordered. Heparin gtt initial infusion
at 700 units/hr. Patient had alba upon coming to hospital that is draining yellow urine. Patient on high flow NC at 50L 75%, sating at 98%. Patient comfortable in bed with call jewell in reach.
[2024-11-30 02:33] LABS: APTT 41.2 Sec (23.4-35.0)
[2024-11-30 04:39] LABS: Hematocrit 32.1 % (39.0-52.0); Hemoglobin 10.7 g/dL (13.0-18.0); Mean Corp Hgb Conc. 33.3 g/dL (33.0-37.0); Mean Corpuscular Hgb 30.2 pg (27.0-31.0); Mean Corpuscular Volume 90.7 fL (80.0-94.0); Mean Platelet Volume 9.7 fL (7.4-10.4); Platelet Count 248 10^3/uL (130-400); Red Blood Cell Count 3.54 10^6/uL (4.70-6.10); Red Cell Dist. Width 17.4 % (11.5-14.5)
[2024-11-30 05:04] LABS: Lactic Acid 3.1 mmol/L (0.7-2.0)
[2024-11-30 05:09] LABS: Blood Urea Nitrogen 24 mg/dl (9-20); Calcium 8.6 mg/dl (8.4-10.2); Carbon Dioxide 25 mmol/L (22-30); Chloride 98 mmol/L (98-107); Estimated Creatinine Clearance 34 ml/min; Glucose 125 mg/dl (70-99); Sodium 131 mmol/L (135-145); eGFR 53.84
[2024-11-30] MEDS: MAXIPIME 1000 MG IV (05:10)
[2024-11-30] MEDS: DUONEB 3 ML INH ×4 (07:21→19:28)
--- NOTE | 2024-11-30 08:19 | CON.CAR ---
Addendum entered and electronically signed by Yon Gomez DO 11/30/24 13:48:
I saw and examined the patient.
The Chief Business Development Officer's note was reviewed and I agree with the note.
Comment:
Plan:
The patient had recent admissions to [facility] in October 2024 with MSSA bacteremia and November 14 through with acute on chronic kidney failure with creatinine as high as 1.8. He was ultimately discharged to rehab on Lasix 40 mg daily.
Patient was also started on midodrine. Medications were held for hypotension. The patient was apparently pushing a wheelchair around the facility complaining of shortness of breath and was found to be hypoxic and sent to ER where chest x-ray
was concerning for multifocal pneumonia and possible acute on chronic heart failure. He has known ischemic cardiomyopathy with EF 20 to 25% as well as history of PCI and stent LAD and circumflex July 2023 at [facility] and known SHANKER OUT of the RCA. He
also has PAF chronically on Xarelto. At his visit cardiology office September 2024 Xarelto was continued and Plavix was transitioned to aspirin. Cardiology was consulted with increase in patient's troponin of 6. Troponin continues to trend.
He denies chest pain shortness of breath at present. He has memory loss.
Plan:
Cont IV Heparin, Xarelto is on hold. Cont aspirin
Resume low-dose Coreg if blood pressure can tolerate
Continue to trend troponin until it peaks. Troponin remains at 6.
Repeat limited echo to reevaluate EF.
Pending clinical course, patient's daughter would like to be aggressive with cardiac care.
Continue treatment for pneumonia and supportive therapy.
Creatinine is currently stable at 1.3
History of paroxysmal atrial fibrillation on amiodarone. Xarelto on hold in favor of IV heparin presently.
The patient's daughter who works in ER was updated.
Original Note:
Consultation
Consultation Request
Date/Time Consultation Requested: 11/29/2024 at 2343
Date/Time Consultation Performed: 11/30/2024 at 0815
Requesting Provider: Dr. Sutton
Performing Provider: Dr. Gomez
Reason for Consultation: Elevated troponin
Medical History
-
History of Present Illness:
Patient came to [facility] yesterday from the rehab section at [facility] with complaints of XIE and hypoxia and he has now admitted with multifactorial hypoxia including acute HFrEF and cardiology has been consulted. Patient was admitted to [facility] in
10/2024 with MSSA bacteremia and he was then discharged back to his assisted living apartment at [facility] and later completed an outpatient NICOLAS at on 10/29/2024 that was negative for vegetation. He was then admitted to from 11/14/2024 until
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 Cre as high as 1.8 on admission earlier this month and then improved with holding diuretic. Patient had been taking Lasix 80 mg daily on admission and he was ultimately d/c'd to rehab on Lasix 40 mg
daily. Also during that admission, his outpatient doses of Coreg 3.125 mg BID, lisinopril 5 mg daily and spironolactone 25 mg daily were held for hypotension and had not yet been resumed at the time of d/c. Patient was also newly started on
midodrine 5 mg TID that admission. Instead of returning to his assisted living apartment at [facility] the patient went to rehab at [facility] ([facility]) and was reportedly pushing a wheelchair around the facility yesterday when he complained of being SOB
and was noted to be hypoxic and was sent to ER where CXR was concerning for multifocal PNA and possible acute HFrEF. Patient has known ICM with EF 20 to 25% at least as far back as 2023. He also has history of PTCA and stenting of the LAD and
circumflex in 07/2023 at [facility] and also has a known SHANKER OUT of the RCA. Patient also with known paroxysmal A-fib and is chronically on Xarelto 15 mg daily. When he was seen in the cardiology office on 09/11/2024 his Xarelto was continued, but his chronic
Plavix was stopped in favor of aspirin 81 mg daily. Cardiology was consulted and part due to troponin elevation seen this admission, troponin was initially 0.16 and then on recheck very early this morning and had increased to a level of 6. Patient
denies any CP.
PMH:
Recent admission for AYE on CKD 3b 11/14/24 until 11/20/24
Chronic HFrEF
Ischemic cardiomyopathy 25%
Hyponatremia
Recent admission to [facility] for sepsis 10/2024
MSSA bacteremia followed by d/c to and outpatient NICOLAS at was negative for vegetation 10/29/24
CAD
NV and PTCA alone of unknown vessel 1991
anterior STEMI s/p LAD STEPHAN 06/02/2023
s/p cath with SHANKER OUT RCA, stage mid-LAD mid STEPHAN & LCX at [facility] 07/11/2023
s/p Medtronic DC ICD 12/2023
HTN
Paroxysmal Afib
Chronic Xarelto OAC
Chronic amiodarone therapy
HLD
COPD
PVD
BPH/TURP
Former smoker
Past Medical History
Past Medical History: Other (As in HPI)
Past Surgical History: Cardiac (Medtronic ICD, PTCA and stent), Tonsilectomy and Urological (bladder surgery)
Social History
Tobacco: Smoker
Alcohol: None
Drug: None
Personal:
Living: Other (Was living at [facility] assisted living until last admission when he went to [facility] for rehab)
Employment: Retired
Family History
Family History: CAD
Allergies / Home Medications
Allergy/AdvReac Type Severity Reaction Status Date / Time
No Known Allergies Allergy Verified 11/09/24 13:12
�Medication �Instructions �Recorded �Confirmed �Type
atorvastatin 80 mg tablet 80 mg PO QPM High Cholesterol 08/19/23 11/29/24 History
magnesium oxide 400 mg PO BID Supplement 08/19/23 11/29/24 History
pantoprazole 40 mg tablet,delayed 40 mg PO QPM Gastrointestinal Issue 08/19/23 11/29/24 History
release
rivaroxaban 15 mg tablet (Xarelto) 15 mg PO DAILY Blood Clot 08/19/23 11/29/24 History
Prevention/Tx
acetaminophen 325 mg tablet 650 mg (2 x 325 mg) PO Q4HPRN PRN 11/20/24 11/29/24 Rx
mild pain/MOULTON/temp> 100.4F #10 tabs
amiodarone 100 mg tablet (Pacerone) 100 mg PO DAILY #30 tabs 11/20/24 11/29/24 Rx
furosemide 40 mg tablet 40 mg PO DAILY #30 tabs 11/20/24 11/29/24 Rx
midodrine 5 mg tablet 5 mg PO Q4HPRN PRN sbp less than 11/20/24 11/29/24 Rx
100 #10 tabs
midodrine 5 mg tablet 5 mg PO TID@0800,1300,1800 #90 tabs 11/20/24 11/29/24 Rx
polyethylene glycol 3350 17 gram 17 g PO DAILY #30 ea 11/20/24 11/29/24 Rx
oral powder packet
sennosides 8.6 mg capsule (senna) 8.6 mg PO HS Constipation #0 caps 11/20/24 11/29/24 Rx
bisacodyl 10 mg rectal suppository 10 mg OR DAILYPRN PRN IF NO BM 11/29/24 11/29/24 History
(Dulcolax (bisacodyl)) AFTR MOM
magnesium hydroxide 400 mg/5 mL 2,400 mg PO DAILYPRN PRN IF NO BM 11/29/24 11/29/24 History
oral suspension (Milk of Magnesia) BY 2ND DAY
sodium phosphates 19 gram-7 118 ml OR DAILYPRN PRN IF NO BM 11/29/24 11/29/24 History
gram/118 mL enema (Fleet Enema) AFTR DULCOLAX
zinc oxide 20 % topical paste 1 ea topical TID SACRUM,COCCYX 11/29/24 11/29/24 History
BUTTOCK
Review of Systems
-
History Source: Patient
All other systems: Negative unless noted
Physical Exam
Vital Signs
Temp Pulse Resp BP Pulse Ox
98.1 F 77 17 124/55 96
11/30/24 03:15 11/30/24 07:22 11/30/24 07:22 11/30/24 06:00 11/30/24 07:23
GEN: NAD. AAO to person, place and situation
HEENT: EOMI, MMM
LUNGS: 50 L high flow. No audible wheeze
CV: A paced on tele. Reg, no murmur
ABD: +BS, ND, NT, soft
EXT: No clubbing, cyanosis, lesions or edema B/L
NEURO: Gross non-focal
SKIN: Pale, warm, dry and no rash
Lab Results
11/30/24 04:21
11/30/24 04:21
Troponin I Cancelled 11/30/24 17:43
Rri-H-Nglwvfwuawy Pept > 32897 pg/ml 11/29/24 19:22
Impression / Plan
-
Primary Care Provider: Dr Leidy Mora
Primary warranty clerk: Dr Jillian Yanez
Impression:
Admitted with multifactorial SOB 11/29/24
Recent admission for AYE on CKD 3b 11/14/24 until 11/20/24
Multifocal PNA
Acute on chronic HFrEF
Ischemic cardiomyopathy 25%
Hyponatremia
Recent admission to [facility] for sepsis 10/2024
MSSA bacteremia followed by d/c to [facility] and outpatient NICOLAS at was negative for vegetation 10/29/24
CAD
NV and PTCA alone of unknown vessel 1990
anterior STEMI s/p LAD STEPHAN 06/02/2023
s/p cath with SHANKER OUT RCA, stage mid-LAD mid STEPHAN & LCX at [facility] 07/11/2023
s/p Medtronic DC ICD 12/2023
HTN
Paroxysmal Afib
Chronic Xarelto OAC
Chronic amiodarone therapy
HLD
COPD
PVD
BPH/TURP
Former smoker
Echo 11/22/23: LAD distribution akinesis, EF 20 to 25%, mild MR/AI
NICOLAS 10/29/24: study following admission to [facility] for MSSA bacteremia, EF 20 to 25%, normal RV size and function, positive echo contrast with no evidence of thrombus, mild MR/TR/AI, moderate atherosclerotic plaque, nonmobile, no evidence of vegetation
Plan:
-Patient came to [facility] yesterday from the rehab section at [facility] with complaints of XIE and hypoxia and he has now admitted with multifactorial hypoxia including acute HFrEF and cardiology has been consulted. Patient was admitted to [facility] in
10/2024 with MSSA bacteremia and he was then discharged back to his assisted living apartment at [facility] and later completed an outpatient NICOLAS at on 10/29/2024 that was negative for vegetation. He was then admitted to from 11/14/2024 until
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 Cre as high as 1.8 on admission earlier this month and then improved with holding diuretic. Patient had been taking Lasix 80 mg daily on admission and he was ultimately d/c'd to rehab on Lasix 40 mg
daily. Also during that admission, his outpatient doses of Coreg 3.125 mg BID, lisinopril 5 mg daily and spironolactone 25 mg daily were held for hypotension and had not yet been resumed at the time of d/c. Patient was also newly started on
midodrine 5 mg TID that admission. Instead of returning to his assisted living apartment at [facility] the patient went to rehab at [facility] ([facility]) and was reportedly pushing a wheelchair around the facility yesterday when he complained of being SOB
and was noted to be hypoxic and was sent to ER where CXR was concerning for multifocal PNA and possible acute HFrEF. Patient has known ICM with EF 20 to 25% at least as far back as 2023. He also has history of PTCA and stenting of the LAD and
circumflex in 07/2023 at [facility] and also has a known SHANKER OUT of the RCA. Patient also with known paroxysmal A-fib and is chronically on Xarelto 15 mg daily. When he was seen in the cardiology office on 09/11/2024 his Xarelto was continued, but his chronic
Plavix was stopped in favor of aspirin 81 mg daily. Cardiology was consulted and part due to troponin elevation seen this admission, troponin was initially 0.16 and then on recheck very early this morning and had increased to a level of 6. Patient
denies any CP.
-ECG reviewed by me is a paced and appears to be SR.
-3rd troponin drawn while I was in the room with the patient and result is pending. Patient denies CP. Patient with known CAD and previous LAD and Circ PCI in 2022 plus known SHANKER OUT of RCA. Will review with patient's family, but patient tells me he
is not interested in a cath as of 11/30/24 AM although this decision appears to be driven by hunger as he is upset at being NPO.
-Called and talked with patient's daughter, Chantelle who works in [employer], for 12:37 min and reviewed case thus far. We made a plan to check echo and await 3rd Troponin. We reviewed that troponin elevation could be due to hypoxia and known SHANKER OUT of the RCA,
but if there is a new WMA or significant Troponin rise then patient would want to have cath. Patient currently at rehab, but generally he is fairly independent in assisted living at [facility] except that they handle his meds.
-Continue heparin gtt.
-Outpatient dose of Xarelto 15 mg daily has been on hold since admission, last dosed 11/28/2024
-Medical therapy is limited by hypotension. Previous doses of Coreg 3.125 mg BID, lisinopril 5 mg daily and spironolactone 25 mg daily were held starting last admission due to hypotension and remain on hold.
-Outpatient dose of midodrine 5 mg TID has been continued
-Agree with initial treatment of acute HFrEF. Lasix 20 mg IV x 1 given in the ER overnight, will order Lasix 40 mg IV daily starting now, ordered by me
-EF 20 to 25% and is being managed as ICM. GDMT limited as noted above
-Patient with Medtronic DC ICD and Dr. Lei increased base pacing rate to 75 on 11/17/24 to help increase cardiac output. Will check device 11/30/2024 due to complaints of palpitations on admission
-Patient with known paroxysmal Afib. Cont amiodarone 100 mg daily. QTc 498 ms with a-paced rhythm on ECG 11/30/2024 reviewed by me
[2024-11-30] MEDS: MIRALAX 17 GRAMS PO (08:52)
[2024-11-30] MEDS: PACERONE 100 MG PO (08:53)
[2024-11-30] MEDS: ProAmatine 5 MG PO ×3 (08:53→18:04)
[2024-11-30] MEDS: ZITHROMAX INFUSION 250 IV (08:53)
[2024-11-30 09:32] LABS: APTT 62.8 Sec (23.4-35.0)
--- NOTE | 2024-11-30 09:32 | W.PN.HOSP.TC ---
Today's Communication/Plan
-
See PN
Assessment / Plan
Assessment / Plan
84yo M with PMHX of SSS s/p PPM, HFrEF s/p ICD, ischemic CM, CAD s/p PCI, paroxysmal Afib, HTN, COPD, orthostatic hypotension brought from [facility] with sudden onset of SOB and hypoxia, Chest XR concered for RUL and RLL pneumonia complicated by
pulmonary edema
A/P:
#Acute hypoxic respiratory failure 2/2 acute on chronic HFrEF exacerbation
#Ischemic CM (EF 25%
#RUL and RLL CAP
#Possible NSTEMI with PMHx of CAD
#PAroxysmal Afib
#S/p PPM
#S/P ICD
pro-BNP >58472
Lasix, daily weights, follow Cr and electrolytes, Barraza for I&O
Trend troponin, heparin drip, ASA, statin
Echo
EKG withoput overt ST elevation
With PMHx of orthostatic hypotension - defer initiation of BB to cardiology
Cardiology consult
Terlemetry
cont rate and rhythm control
Right-sided pneumonia- risk of aspiration, switch to Vanco/Zosyn
Bcx pending
COVID-19, Influenza PCR neg
Check Legionella and S.pneumonia Ag
#GERD
#HLD
cont home meds
DVTppx hep drip
Full code
I have spent at least 57min reviewing chart, test results, communication with consultants and providing direct patient care
Anticipated Discharge: > 48 hours
Subjective/Interval History
-
Date of Service: November 30, 2024
Objective Data
-
Labs:
Laboratory Results
11/30/24 11/30/24 11/30/24
02:04 04:21 09:10
WBC 14.3 H 15.0 H
Hgb 11.8 L 10.7 L
Hct 35.6 L 32.1 L
Plt Count 240 248
APTT 41.2 H Pending
Sodium 131 L
Potassium 5.0
Chloride 98
Carbon Dioxide 25
BUN 24 H
Creatinine 1.3
Glucose 125 H
Calcium 8.6
Vital Signs:
Vital Signs
Temp Pulse Resp BP Pulse Ox
98.1 F 75 17 113/58 96
11/30/24 03:15 11/30/24 08:53 11/30/24 07:22 11/30/24 08:53 11/30/24 07:23
I&O
11/29/24 11/30/24 12/01/24
06:59 06:59 06:59
Output Total 100 / 100
Balance -100 / -100
Review of Systems
-
Unable to obtain full review of systems at this time due to: Dementia
History Source: Patient
All other systems: Reviewed and negative
Physical Exam
-
General: No Apparent Distress
HEENT: Normocephalic
Respiratory: Clear to Auscultation
Cardiac: Regular Rhythm
GI: Soft, Nontender and Nondistended
Musculoskeletal: No Clubbing, No Cyanosis, Edema, Right Lower Extrem (trace) and Edema, Left Lower Extrem (trace)
Skin: Warm
Neuro: Awake, Alert, Oriented and AO x 3
Psych: Calm and Apparent Dementia
[2024-11-30 09:35] LABS: Lactic Acid 3.4 mmol/L (0.7-2.0)
[2024-11-30] MEDS: LOW STRENGTH ASPIRIN 81 MG PO (10:17)
[2024-11-30] MEDS: ZOSYN 50 IV (10:17)
--- NOTE | 2024-11-30 10:43 | PHA.VAN.IN ---
Assessment
- Assessment
Renal Function: Appears elevated from baseline
Maximum Temperature: 98.3
Minimum Temperature: 97.6
Concomitant Antimicrobials: zosyn
AUC Dosing Plan
- Monitoring
MRSA Screen: Ordered per protocol
Plan
- Plan
Initial / Loading Dose: vancomycin 1500 mg x1
Maintenance Regimen: dose by level
Monitoring: random level ordered for 12/01 @0600
MRSA Screen: Ordered per protocol
Pharmacokinetics Vancomycin I
- -
Patient Age: 84
Patient Sex: Male
Vancomycin Day #: 1
Indication: Pulmonary/Respiratory
Requesting Provider: Dr. Jean
Pertinent Antimicrobial Allergies:
nkda
Height / Weight:
Height 6 ft
Actual Weight 59.058 kg
IBW in k.6
Pertinent Past Medical History: acute hypoxic respiratory failure
- Vital Signs / Lab Results
Temp Pulse Resp BP Pulse Ox
98.1 F 75 17 113/58 96
11/30/24 03:15 11/30/24 08:53 11/30/24 07:22 11/30/24 08:53 11/30/24 07:23
Lab Results - Hematology
11/29/24 11/30/24 11/30/24
19:22 02:04 04:21
WBC 15.6 H 14.3 H 15.0 H
Lab Results - Chemistry
11/29/24 11/30/24
19:22 04:21
BUN 20 24 H
Creatinine 1.3 1.3
Estimated Creat Clear 36 34
Albumin 3.5
11/29/24 11/30/24 11/30/24
19:22 00:07 04:21
Lactic Acid 5.5 H* 3.7 H 3.1 H
11/30/24
09:10
Lactic Acid 3.4 H
Microbiology Results
11/29/24 21:40 Influenza Types A & B (YANDY) - Final
Nasal Swab Negative for Influenza A & B, NAAT
Negative results must be combined with clinical observations
and patient history.
Nucleic Acid Amplification test (NAAT)performed on the
[employer] platform.
--- NOTE | 2024-11-30 12:05 | PTOTSP ---
Speech Language Pathology
Pt seen for clinical bedside swallow evaluation. No hx of dysphagia per pt report. Currently with RUL and RLL PNA; however, no prior PNA noted on CXR at in the past. No hx with BUSINESS TEST ANALYST. P.O. trials of regular solids and thin liquids provided.
Adequate mastication, bolus formation, and A-P transit noted with no oral residue. No overt signs of aspiration.
Recommend:
(1) Regular solids/thin liquids
(2) General aspiration precautions
(3) Meds as tolerated
(4) BUSINESS TEST ANALYST to sign off. Please reconsult as indicated
[2024-11-30] MEDS: LASIX 40 MG IV (12:46)
--- NOTE | 2024-11-30 12:50 | WOUNDNOTE ---
WON RN note: Patient admitted with CHF, pneumonia and sepsis.
See H&P for complete history. New 's ROHIT, recent falls.
PMH: Past Medical History: Reports Arrhythmia (paroxysmal afib), CAD (Status post SD, status post multivessel angioplasty with stents), CHF (EF 20 - 25%, s/p ICD PPM), HTN, Hypercholesterolemia and Other (Nephrolithiasis, BPH)
Past Surgical History: Reports Tonsilectomy, Urological (TURP, bladder surgery with calculi removal) and Other (Angioplasty with stents in the heart, TURP.)
Wound Location and type/assessment: Patient known to service, last seen 11/16/24. Scattered bruising on limbs and R hip full thickness ulcer, patient reports was from recent fall. Serous yellow drainage of small amt, silicone foam in use. b/l
elbows with dry scabs from old stage 3 PI vs abrasions. Patient admits that he picks at his skin when he is anxious. Sacrum blanchable red, L upper back with healed abrasion. Heels are blanchable red per nurse Taylor and adhesive foams applied
this morning.
Appetite: Good, ate most of meal for breakfast.
Pressure redistribution devices in place: On Air mattress, currently sitting in recliner chair.
Plan: Foam applied to R hip will order honey gel, adaptic then foam daily. Will confirm orders with hospitalist and updated nurse. Called [employer] for supply and nurse will bring into his rm. Updated care plan and will follow as needed.
Note to case management of equipment requested for discharge: VN if home.
[2024-11-30 14:07] LABS: Lactic Acid 4.8 mmol/L (0.7-2.0)
--- NOTE | 2024-11-30 14:25 | W.PN.UPDATE ---
Addendum entered and electronically signed by Vincent Sutton MD 11/30/24 15:25:
Switch to Cefepime/Flagyl for Pseudomonal coverage.
Original Note:
Update Note
Progress Note Update
In spite of raising lactic acid - patient is comfortable and asymptomatic, without hypotension or tachycardia
No direct indication of hypoperfusion so will continue to follow lactate and providing Lasix and Abx.
[2024-11-30 14:54] LABS: Urine Albumin 2+ (Neg - Trace); Urine Bilirubin Negative (Negative); Urine Character Clear (Clear); Urine Color Yellow; Urine Glucose Negative (Negative); Urine Ketone Negative (Negative); Urine Leukocyte 3+ (Negative); Urine Nitrite Negative (Negative); Urine Occult Blood 4+ (Negative); Urine Urobilinogen Negative (Neg - 1+)
[2024-11-30 15:11] LABS: Urine Bacteria Few (Negative); Urine Red Blood Cell 0-2 /HPF (0-2); Urine Squamous Cell 0-2 /LPF (Few); Urine White Cell 0-2 /HPF (0-5)
[2024-11-30 15:31] LABS: D-Dimer 0.58 ug/mlFEU (0.00-0.50)
[2024-11-30] MEDS: MAXIPIME 2000 MG IV ×2 (16:19→23:02)
[2024-11-30] MEDS: FLAGYL 500 MG 100 IV ×2 (16:19→23:02)
[2024-11-30] MEDS: STERILE WATER FOR INJECTION 10 ML IV ×2 (16:19→23:03)
--- NOTE | 2024-11-30 16:43 | CM ---
manager trade marketing reviewed patient's chart and patient was recently placed at [facility], prior to that patient resides at [facility] assisted living, paint is independent with adl's and uses a walker with ambulation. Plan is to return to [facility],
referral sent to [facility] skilled.
PCP: Shadi Lyons
Plan; Skilled placement.
[2024-11-30 16:47] LABS: APTT 140.2 Sec (23.4-35.0)
--- NOTE | 2024-11-30 17:32 | CON.PUL ---
Consultation
Consultation Request
Date/Time Consultation Requested: 11/30/2024
Date/Time Consultation Performed: 11/30/2024
Requesting Provider: Joelle Jean
Performing Provider: Roderick Banuelos
Reason for Consultation: Pneumonia
Medical History
-
Chief Complaint: Shortness of breath
History of Present Illness:
This is an 84-year-old male with past medical history of CAD status post STEMI in 2022 with LAD stent placement, staged mid LAD and circumflex stents, ischemic cardiomyopathy with EF of around 20 to 25% status post ICD and pacemaker, paroxysmal
atrial fibrillation on Xarelto and amiodarone, hypertension, hyperlipidemia, CKD, recurrent falls who admitted here 1 week ago with weakness, ultimately thought to be secondary to symptomatic hypotension in the setting of advanced cardiomyopathy.
He was started on midodrine and started again on low-dose Lasix to avoid acute CHF exacerbations.
Patient presented back to ED for worsening shortness of breath. He also noted some pedal edema. Dyspnea progressed rather rapidly and was noted to be hypoxic in ED. He was given supplemental O2. Work up included CXR which was suggestive of pneumonia
as well as pulmonary edema.
Patient had minimally elevated troponin on admission, which subsequently became markedly elevated, suggestive of NSTEMI. He was also noted to have elevated BNP. Patient was started on broad spectrum antibiotics, and pulmonary service was consulted
for further recommendations.
Medical History
Past Medical History
Past Medical History: Reports Arrhythmia (paroxysmal afib), CAD (Status post CA, status post multivessel angioplasty with stents), CHF (EF 20 - 25%, s/p ICD PPM), HTN, Hypercholesterolemia and Other (Nephrolithiasis, BPH)
Past Surgical History: Reports Tonsilectomy, Urological (TURP, bladder surgery with calculi removal) and Other (Angioplasty with stents in the heart, TURP.)
Social History
Tobacco: Non-smoker
Alcohol: None
Drug: None
Personal: Single
Living: Assisted Living
Employment: Retired
Family History
Family History: CAD
Allergies / Home Medications
Allergies
Allergy/AdvReac Type Severity Reaction Status Date / Time
No Known Allergies Allergy Verified 11/09/24 13:12
Home Medications
�Medication �Instructions �Recorded �Confirmed �Last Taken �Type
atorvastatin 80 mg tablet 80 mg PO QPM High Cholesterol 08/19/23 11/29/24 10/28/24 20:00 History
magnesium oxide 400 mg PO BID Supplement 08/19/23 11/29/24 10/28/24 21:00 History
pantoprazole 40 mg tablet,delayed 40 mg PO QPM Gastrointestinal Issue 08/19/23 11/29/24 10/28/24 19:00 History
release
rivaroxaban 15 mg tablet (Xarelto) 15 mg PO DAILY Blood Clot 08/19/23 11/29/24 10/28/24 08:00 History
Prevention/Tx
acetaminophen 325 mg tablet 650 mg (2 x 325 mg) PO Q4HPRN PRN 11/20/24 11/29/24 Unknown Rx
mild pain/[place]/temp> 100.4F #10 tabs
amiodarone 100 mg tablet (Pacerone) 100 mg PO DAILY #30 tabs 11/20/24 11/29/24 Unknown Rx
furosemide 40 mg tablet 40 mg PO DAILY #30 tabs 11/20/24 11/29/24 Unknown Rx
midodrine 5 mg tablet 5 mg PO Q4HPRN PRN sbp less than 11/20/24 11/29/24 Unknown Rx
100 #10 tabs
midodrine 5 mg tablet 5 mg PO TID@0800,1300,1800 #90 tabs 11/20/24 11/29/24 Unknown Rx
polyethylene glycol 3350 17 gram 17 g PO DAILY #30 ea 11/20/24 11/29/24 Unknown Rx
oral powder packet
sennosides 8.6 mg capsule (senna) 8.6 mg PO HS Constipation #0 caps 11/20/24 11/29/24 10/28/24 19:00 Rx
bisacodyl 10 mg rectal suppository 10 mg MD DAILYPRN PRN IF NO BM 11/29/24 11/29/24 Unknown History
(Dulcolax (bisacodyl)) AFTR MOM
magnesium hydroxide 400 mg/5 mL 2,400 mg PO DAILYPRN PRN IF NO BM 11/29/24 11/29/24 Unknown History
oral suspension (Milk of Magnesia) BY 2ND DAY
sodium phosphates 19 gram-7 118 ml MD DAILYPRN PRN IF NO BM 11/29/24 11/29/24 Unknown History
gram/118 mL enema (Fleet Enema) AFTR DULCOLAX
zinc oxide 20 % topical paste 1 ea topical TID SACRUM,COCCYX 11/29/24 11/29/24 Unknown History
BUTTOCK
Review of Systems
-
Hematologic/Lymphatic: Other (Reports feeling much better after diuresis. No dyspnea during my eval, no chest pain either. )
Vitals / Labs / Diagnostic Testing
Vital Signs
Temp Pulse Resp BP Pulse Ox
97.6 F 75 17 114/66 98
11/30/24 15:08 11/30/24 15:12 11/30/24 15:12 11/30/24 14:00 11/30/24 15:12
Lab Data
11/30/24 04:21
11/30/24 04:21
Laboratory Results
11/30/24 11/30/24 11/30/24
02:04 09:10 16:24
APTT 41.2 H 62.8 H 140.2 H
Microbiology
11/30/24 14:13 Urine Streptococcus pneumoniae Antigen (M - Final
Negative for Streptococcus pneumoniae antigen.
A negative result does not exclude infection with
Streptococcus pneumoniae. Clinical correlation is
recommended.
11/30/24 14:13 Urine Legionella Urinary Antigen - Final
Negative for Legionella pneumophila Serogroup 1 antigen.
A negative result does not rule out the possiblity of
Legionella infection due to other serogroups or species of
Legionella. Clinical correlation is recommended.
11/29/24 21:40 Nasal Swab Influenza Types A & B (YANDY) - Final
Negative for Influenza A & B, NAAT
Negative results must be combined with clinical observations
and patient history.
Nucleic Acid Amplification test (NAAT)performed on the
[employer] platform.
Diagnostic Testing:
Physical Exam
-
HEENT: Normocephalic
Cardiovascular: Peripheral Edema (1+ bilaterally )
Respiratory: Clear
GI: Soft and Non Distended
Neurology: Awake and Alert
Assessment
-
#1. Acute hypoxic respiratory failure. suspect due to Acute CA with Pulmonary edema primarily with multi focal pneumonia. Considering quick symptomatic improvement, Acute CA with Pulmonary edema seems more likely etiology than infection.
-Work of breathing improved, no distress on exam.
#2. Multi-focal pneumonia/Healthcare associated Pneumonia considering recent hospitalization.
-Continue Vancomycin, Cefepime and Doxycycline. Can d/c Flagyl
-O2 support as needed
-f/u CXR in AM
-If opacities persist after treatment in coming days, will consider CT to evaluate for any Amiodarone associated interstitial changes. Pulmonary toxicity is not very common for dose less than 200 per day
-Continue short term Duoneb. No known h/o Emphysema. No indication for steroids
#3. Acute CA/NSTEMI. Known h/o CAD with h/o PCI
-Cardiology service on case. Chest pain free
-Heparin drip, Troponin peaked
-on ASA, Heparin and Statins. Not on Beta blockers, on Midodrine instead
#4. Paroxysmal A fib.
-has been on Amiodarone 100 mg and Xarelto
-Currently on heparin drip
#5. Acute on chronic Heart failure with reduced EF, 20-25%, s/p AICD
-Responding well to diuresis
-Cardiology service on case
Pulmonary will follow.
Data:
CXR 10/2024: Progressed findings suggesting right upper lobe and right lower lobe pneumonia.
Prominent interstitial markings suggesting pulmonary edema. Progressed.
NICOLAS 10/2024: Moderately enlarged left ventricle with severely reduced left ventricular
systolic function with ejection fraction 20-25%.
Normal right ventricular size and function. ICD wire seen in the right heart
Moderately dilated left atrium
Positive spontaneous echo contrast with no evidence of thrombus.
Mild mitral regurgitation.
Mild aortic regurgitation.
Mild tricuspid regurgitation.
Moderate atherosclerotic plaque, nonmobile
No evidence of vegetation noted.
Compared to prior echo from November 2023 findings are similar.
[2024-11-30] MEDS: LIPITOR 80 MG PO (18:04)
[2024-11-30] MEDS: PROTONIX 40 MG PO (18:06)
--- NOTE | 2024-11-30 20:14 | PTCARENOTE ---
Rec'd pt this AM. Pt AAO x3 but with short term memory loss. Requires frequent reminders to not pull at cords or alba. O2 sat improved this AM and pt removed from HFNC and placed on 6L. O2 sat 90s to 100. pt with high trop and Lactic acid. Notified
cards and Dr. Sutton. follow labs obtained as ordered. Pt with stable vital signs throughout the shift, asymptomatic. Excellent appetite. OOB x1 with rolling walker to chair. denies any complaints. Daughter updated at bedside.
[2024-11-30 20:15] LABS: Lactic Acid 3.1 mmol/L (0.7-2.0)
[2024-11-30] MEDS: VIBRAMYCIN 260 MG IV (20:53)
[2024-11-30 23:31] LABS: Lactic Acid 1.9 mmol/L (0.7-2.0)
[2024-11-30 23:37] LABS: APTT 82.4 Sec (23.4-35.0)
[2024-12-01] VITALS (14 sets, daily range): BP systolic 95–122; BP diastolic 49–92; BMI 17.6
--- NOTE | 2024-12-01 01:46 | PTCARENOTE ---
Pt AAO to self and time, Pt thinking we were at the '[facility]'. Pt easily reoriented, forget full at times. Pt has very pleasant demeanor. Pt continues on heparin gtt currently at 7ml/HR. Pt BP remaining within appropriate limits. Pt had no
complains thus far. Assessment care and vitals as charted.
[2024-12-01 06:06] LABS: % Basophils 0.4 % (0-2); % Eosinophils 0.4 % (0-6); % Immature Granulocytes 0.6 % (0-0.5); % Lymphocytes 12.8 % (20.5-51.1); % Monocytes 12.1 % (1.7-9.3); % Neutrophils 73.7 % (42.2-75.2); Absolute Lymphocytes 0.9 10^3/uL (1.2-3.4); Absolute Monocytes 0.9 10^3/uL (0.1-0.6); Absolute Neutrophils 5.2 10^3/uL (1.4-6.5); Hematocrit 25.6 % (39.0-52.0); Hemoglobin 8.5 g/dL (13.0-18.0); Mean Corp Hgb Conc. 33.2 g/dL (33.0-37.0); Mean Corpuscular Hgb 30.5 pg (27.0-31.0); Mean Corpuscular Volume 91.8 fL (80.0-94.0); Mean Platelet Volume 9.7 fL (7.4-10.4); Nucleated Red Blood Cells % 0 % (-); Platelet Count 208 10^3/uL (130-400); Red Blood Cell Count 2.79 10^6/uL (4.70-6.10); Red Cell Dist. Width 17.9 % (11.5-14.5)
[2024-12-01 06:18] LABS: Vancomycin Random 7.3 ug/ml
[2024-12-01 06:20] LABS: APTT 68.3 Sec (23.4-35.0)
[2024-12-01 06:40] LABS: ALT (SGPT) 21 U/L (0-50); AST (SGOT) 32 U/L (17-59); Albumin 2.4 g/dl (3.5-5.0); Alkaline Phosphatase 105 U/L (38-126); Blood Urea Nitrogen 26 mg/dl (9-20); Carbon Dioxide 28 mmol/L (22-30); Chloride 100 mmol/L (98-107); Estimated Creatinine Clearance 41 ml/min; Glucose 85 mg/dl (70-99); Potassium 4.4 mmol/L (3.5-5.1); Sodium 132 mmol/L (135-145); Total Bilirubin 1.2 mg/dl (0.2-1.3); Total Protein 4.5 g/dl (6.3-8.2); eGFR > 60.00
[2024-12-01] MEDS: DUONEB 3 ML INH ×4 (07:27→19:37)
--- NOTE | 2024-12-01 08:20 | PHA.VAN.FU ---
Vancomycin Assessment / Plan
- Assessment
Renal Function: SCR Decreasing (1.3 ->1.1 (Baseline~1.0))
WBC's are: WNL (7.0)
In the past 24 hrs, patient has been: Afebrile
Concomitant Antimicrobials: Cefepime, Doxycycline
- Assessment - Therapeutic Drug Monitoring
Random Level: R lvl 7.3 ~34hrs after 1500mg load
- Dosing Plan
Continue: Dose by level
Dosing by Level: Re-dose today
Dosing Comments: Vanco 1000mg x1 today
- Monitoring Plan
Random Level: R level 12/02/24 0600
- Follow Up
Pharmacy will continue to follow.
Vancomycin Follow UP
- -
Patient Age: 84
Patient Sex: Male
Vancomycin Day #: 2
Indication: Pulmonary/Respiratory
Requesting Provider: Dr. Jean
Pertinent Antimicrobial Allergies:
nkda
Height / Weight:
Height 6 ft
Actual Weight 58.7 kg
IBW in k.6
Pertinent Past Medical History: acute hypoxic respiratory failure
- Vital Signs / Lab Results
Temp Pulse Resp BP Pulse Ox
97.9 F 72 16 106/56 98
12/01/24 07:28 12/01/24 07:30 12/01/24 07:30 12/01/24 05:43 12/01/24 07:30
Lab Results - Hematology
11/29/24 11/30/24 11/30/24
19:22 02:04 04:21
WBC 15.6 H 14.3 H 15.0 H
12/01/24
05:22
WBC 7.0
Lab Results - Chemistry
11/29/24 11/30/24 12/01/24
19:22 04:21 05:22
BUN 20 24 H 26 H
Creatinine 1.3 1.3 1.1
Estimated Creat Clear 36 34 41
Albumin 3.5 2.4 L
11/29/24 11/30/24 11/30/24
19:22 00:07 04:21
Lactic Acid 5.5 H* 3.7 H 3.1 H
11/30/24 11/30/24 11/30/24
09:10 13:41 18:31
Lactic Acid 3.4 H 4.8 H* 3.1 H
11/30/24 12/01/24 12/01/24
23:11 00:00 06:00
Lactic Acid 1.9 Cancelled Cancelled
Lab Results - Urine
11/30/24
14:13
Urine Nitrite (Reflex) Negative
Leukocyte Esterase Rfl 3+ A
Ur Squamous Epith Cells 0-2
Microbiology Results
11/29/24 19:22 Blood Culture - Preliminary
Blood/Venous No Growth in 24 hours- Final report to follow
11/29/24 19:22 Blood Culture - Preliminary
Blood/Venous No Growth in 24 hours- Final report to follow
11/30/24 14:13 Streptococcus pneumoniae Antigen (M - Final
Urine Negative for Streptococcus pneumoniae antigen.
A negative result does not exclude infection with
Streptococcus pneumoniae. Clinical correlation is
recommended.
11/30/24 14:13 Legionella Urinary Antigen - Final
Urine Negative for Legionella pneumophila Serogroup 1 antigen.
A negative result does not rule out the possiblity of
Legionella infection due to other serogroups or species of
Legionella. Clinical correlation is recommended.
11/29/24 21:40 Influenza Types A & B (YANDY) - Final
Nasal Swab Negative for Influenza A & B, NAAT
Negative results must be combined with clinical observations
and patient history.
Nucleic Acid Amplification test (NAAT)performed on the
[employer] platform.
Therapeutic Drug Monitoring
Random Vancomycin 7.3 ug/ml 12/01/24 05:22
[2024-12-01] MEDS: LASIX 40 MG IV (08:48)
[2024-12-01] MEDS: ProAmatine 5 MG PO ×4 (08:48→20:44)
[2024-12-01] MEDS: LOW STRENGTH ASPIRIN 81 MG PO (08:48)
[2024-12-01] MEDS: PACERONE 100 MG PO (08:48)
[2024-12-01] MEDS: STERILE WATER FOR INJECTION 10 ML IV ×3 (08:49→23:20)
[2024-12-01] MEDS: MIRALAX 17 GRAMS PO (08:49)
[2024-12-01] MEDS: MAXIPIME 2000 MG IV (08:49)
[2024-12-01] MEDS: VIBRAMYCIN 260 MG IV ×2 (08:50→20:45)
--- NOTE | 2024-12-01 08:59 | W.PN.PUL3 ---
Today's Communication / Plan
-
-Rapid improvement in symptoms and chest x-ray with diuresis more suggestive of pulmonary edema rather than pneumonia
-If cultures stay negative over 24 hours, can discontinue antibiotics and monitor
-Pulmonary team will sign off, please call as needed
Assessment
-
This is an 84-year-old male with past medical history of CAD status post STEMI in 2022 with LAD stent placement, staged mid LAD and circumflex stents, ischemic cardiomyopathy with EF of around 20 to 25% status post ICD and pacemaker, paroxysmal
atrial fibrillation on Xarelto and amiodarone, hypertension, hyperlipidemia, CKD, recurrent falls who admitted here 1 week ago with weakness, ultimately thought to be secondary to symptomatic hypotension in the setting of advanced cardiomyopathy.
He was started on midodrine and started again on low-dose Lasix to avoid acute CHF exacerbations.
Patient presented back to ED for worsening shortness of breath. He also noted some pedal edema. Dyspnea progressed rather rapidly and was noted to be hypoxic in ED. He was given supplemental O2. Work up included CXR which was suggestive of pneumonia
as well as pulmonary edema.
Patient had minimally elevated troponin on admission, which subsequently became markedly elevated, suggestive of NSTEMI. He was also noted to have elevated BNP. Patient was started on broad spectrum antibiotics, and pulmonary service was consulted
for further recommendations.
#1. Acute hypoxic respiratory failure. suspect due to Acute ME with Pulmonary edema primarilya. Considering quick symptomatic improvement, Acute ME with Pulmonary edema seems more likely etiology than infection.
-Work of breathing improved, no distress on exam.
#2. ? Pneumonia. (more likely pulmonary edema with rapid improvement in CXR)
-Presentation appears to be more due to pulmonary edema with the rapid improvement in chest x-ray
-Can de-escalate antibiotics further
-Continue short term Duoneb. No known h/o Emphysema. No indication for steroids
#3. Acute ME/NSTEMI. Known h/o CAD with h/o PCI
-Cardiology service on case. Chest pain free
-Heparin drip, Troponin peaked
-on ASA, Heparin and Statins. Not on Beta blockers, on Midodrine instead
#4. Paroxysmal A fib.
-has been on Amiodarone 100 mg and Xarelto
-Currently on heparin drip
#5. Acute on chronic Heart failure with reduced EF, 20-25%, s/p AICD
-Responding well to diuresis
-Cardiology service on case
Total time spent on this consultation/encounter _31___ minutes which includes review of history, physical exam, medications, laboratory data, personal review of imaging, extensive review of outpatient records, discussion with care team and
respiratory therapy.
Data:
CXR 10/2024: Progressed findings suggesting right upper lobe and right lower lobe pneumonia.
Prominent interstitial markings suggesting pulmonary edema. Progressed.
NICOLAS 10/2024: Moderately enlarged left ventricle with severely reduced left ventricular
systolic function with ejection fraction 20-25%.
Normal right ventricular size and function. ICD wire seen in the right heart
Moderately dilated left atrium
Positive spontaneous echo contrast with no evidence of thrombus.
Mild mitral regurgitation.
Mild aortic regurgitation.
Mild tricuspid regurgitation.
Moderate atherosclerotic plaque, nonmobile
No evidence of vegetation noted.
Compared to prior echo from November 2023 findings are similar.
Subjective Data
-
Date of Service:
Date of Service: December 01, 2024
Subjective:
Patient reports feeling much better, lying flat in bed in no acute distress.
Review of Systems
Genitourinary: Other (All 14 systems reviewed and negative except as stated above in the history of present illness.)
Objective Data
Data Reviewed
Vital Signs / I&O / Oxygen:
Vital Signs
Temp Pulse Resp BP Pulse Ox
97.9 F 80 16 115/62 98
12/01/24 07:28 12/01/24 08:48 12/01/24 07:30 12/01/24 08:48 12/01/24 07:30
Intake and Output
11/30/24 12/01/24 12/02/24
06:59 06:59 06:59
Intake Total 764 / 764
Output Total 100 / 100 1475 / 1475
Balance -100 / -100 -711 / -711
SaO2 98
Nasal Cannula flow liters per 6
minute
Physical Exam
General: Comfortable
HEENT: Normocephalic
Cardiovascular: S1-S2
Respiratory: Clear and Non-Labored Respirations
GI: Soft and Non Distended
Neurology: Awake
Skin: Warm
Labs/Micro/Reports
Lab Data
12/01/24 05:22
Laboratory Results
11/30/24 11/30/24 11/30/24
09:10 16:24 23:11
APTT 62.8 H 140.2 H 82.4 H
12/01/24
05:22
APTT 68.3 H
Microbiology
11/29/24 19:22 Blood/Venous Blood Culture - Preliminary
No Growth in 24 hours- Final report to follow
11/29/24 19:22 Blood/Venous Blood Culture - Preliminary
No Growth in 24 hours- Final report to follow
11/30/24 14:13 Urine Streptococcus pneumoniae Antigen (M - Final
Negative for Streptococcus pneumoniae antigen.
A negative result does not exclude infection with
Streptococcus pneumoniae. Clinical correlation is
recommended.
11/30/24 14:13 Urine Legionella Urinary Antigen - Final
Negative for Legionella pneumophila Serogroup 1 antigen.
A negative result does not rule out the possiblity of
Legionella infection due to other serogroups or species of
Legionella. Clinical correlation is recommended.
11/29/24 21:40 Nasal Swab Influenza Types A & B (YANDY) - Final
Negative for Influenza A & B, NAAT
Negative results must be combined with clinical observations
and patient history.
Nucleic Acid Amplification test (NAAT)performed on the
[employer] platform.
[2024-12-01] MEDS: VANCOCIN 200 IV (09:06)
--- NOTE | 2024-12-01 09:41 | W.PN.CARDCBS ---
Addendum entered and electronically signed by Yon Gomez DO 12/01/24 12:19:
I saw and examined the patient.
The Brush Polisher's note was reviewed and I agree with the note.
Comment:
Plan:
Troponin peaked at 6.88. Echo reviewed and appears stable from prior echo with EF 20 to 25%.
Patient with history of CAD including LAD and left circumflex PCI with known VP GLOBAL RCA. Discussed options with patient and family and daughter is up agreeable to cardiac catheterization.
Xarelto has been held for history of PAF, remains on IV heparin.
GDMT limited by hypotension. Coreg, lisinopril, Aldactone were started last admission but patient has been unable to tolerate.
Consider resuming low-dose Coreg as bp will allow.
Continue Lasix IV diuresis.
Continue amiodarone for PAF.
Continue supportive therapy and treatment of pneumonia.
Patient with [employer] DC ICD and Dr. Lei increased base pacing rate to 75 on 11/17/24 to help increase cardiac output.
Original Note:
Today's Communication / Plan
-
Talked with daughter and patient and family would like to proceed with cardiac cath in AM
Impression / Plan
-
Primary Care Provider: Dr Leidy Mora
Primary patient portal concierge: Dr Jillian Yanez
Impression:
Admitted with multifactorial SOB 11/29/24
Recent admission for AYE on CKD 3b 11/14/24 until 11/20/24
Multifocal PNA
Acute on chronic HFrEF
Ischemic cardiomyopathy 25%
Elevated Troponin
Hyponatremia
Recent admission to [facility] for sepsis 10/2024
MSSA bacteremia followed by d/c to [facility] and outpatient NICOLAS at was negative for vegetation 10/29/24
CAD
ME and PTCA alone of unknown vessel 1990
anterior STEMI s/p LAD SETPHAN 06/02/2023
s/p cath with VP GLOBAL RCA, stage mid-LAD mid STEPHAN & LCX at [facility] 07/11/2023
s/p Medtronic DC ICD 12/2023
HTN
Paroxysmal Afib
Chronic Xarelto OAC
Chronic amiodarone therapy
HLD
COPD
PVD
BPH/TURP
Former smoker
Echo 11/22/23: LAD distribution akinesis, EF 20 to 25%, mild MR/AI
NICOLAS 10/29/24: DH study following admission to [facility] for MSSA bacteremia, EF 20 to 25%, normal RV size and function, positive echo contrast with no evidence of thrombus, mild MR/TR/AI, moderate atherosclerotic plaque, nonmobile, no evidence of vegetation
Plan:
-Troponin peaked at 6.88. Echo noted above without change, but given presentation patient and family would like to proceed with cardiac cath 12/02/24. Called and talked with patient's daughter, Chantelle who works in [employer] on 11/30/24 and again 12/01/24 and we
reviewed risk of ME, CVA and vs benefit of diagnosing and treating obstructive lesion. Last cath was in 2022 at [facility] when patient had LAD and Circ PCI plus known VP GLOBAL RCA, report located by me and printed for reference by cath physician.
-Heparin gtt renewed by me
-Outpatient dose of Xarelto 15 mg daily has been on hold since admission, last dosed 11/28/2024
-Medical therapy is limited by hypotension. Previous doses of Coreg 3.125 mg BID, lisinopril 5 mg daily and spironolactone 25 mg daily were held starting last admission due to hypotension and remain on hold.
-Outpatient dose of midodrine 5 mg TID has been continued
-Weight is down 1 lb since admission with Lasix 40 mg IV daily. Patient was taking Lasix 40 mg PO daily prior to admission.
-EF 20 to 25% and is being managed as ICM. GDMT limited as noted above
-Patient with [employer]tronic DC ICD and Dr. Lei increased base pacing rate to 75 on 11/17/24 to help increase cardiac output.
-Patient with known paroxysmal Afib. Cont amiodarone 100 mg daily.
-Patient also being treated for PNA.
-Reviewed plan for cath with hospitalist attending as well.
HPI: Patient came to [facility] yesterday from the rehab section at [facility] with complaints of XIE and hypoxia and he has now admitted with multifactorial hypoxia including acute HFrEF and cardiology has been consulted. Patient was admitted to [facility] in
10/2024 with MSSA bacteremia and he was then discharged back to his assisted living apartment at [facility] and later completed an outpatient NICOLAS at on 10/29/2024 that was negative for vegetation. He was then admitted to from 11/14/2024 until
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 Cre as high as 1.8 on admission earlier this month and then improved with holding diuretic. Patient had been taking Lasix 80 mg daily on admission and he was ultimately d/c'd to rehab on Lasix 40 mg
daily. Also during that admission, his outpatient doses of Coreg 3.125 mg BID, lisinopril 5 mg daily and spironolactone 25 mg daily were held for hypotension and had not yet been resumed at the time of d/c. Patient was also newly started on
midodrine 5 mg TID that admission. Instead of returning to his assisted living apartment at [facility] the patient went to rehab at [facility] and was reportedly pushing a wheelchair around the facility yesterday when he complained of being SOB
and was noted to be hypoxic and was sent to ER where CXR was concerning for multifocal PNA and possible acute HFrEF. Patient has known ICM with EF 20 to 25% at least as far back as 2023. He also has history of PTCA and stenting of the LAD and
circumflex in 07/2023 at [facility] and also has a known VP GLOBAL of the RCA. Patient also with known paroxysmal A-fib and is chronically on Xarelto 15 mg daily. When he was seen in the cardiology office on 09/11/2024 his Xarelto was continued, but his chronic
Plavix was stopped in favor of aspirin 81 mg daily. Cardiology was consulted and part due to troponin elevation seen this admission, troponin was initially 0.16 and then on recheck very early this morning and had increased to a level of 6. Patient
denies any CP.
Progress Note - Plate Developer
Subjective
Date of Service: December 01, 2024
No chest pain
Objective
Labs:
12/01/24 05:22
Labs
Hgb 8.5 g/dL (13.0-18.0) L D 12/01/24 05:22
Hct 25.6 % (39.0-52.0) L 12/01/24 05:22
Plt Count 208 10^3/uL (130-400) 12/01/24 05:22
APTT 68.3 Sec (23.4-35.0) H 12/01/24 05:22
Sodium 132 mmol/L (135-145) L 12/01/24 05:22
Potassium 4.4 mmol/L (3.5-5.1) 12/01/24 05:22
BUN 26 mg/dl (9-20) H 12/01/24 05:22
Creatinine 1.1 mg/dL (0.7-1.3) 12/01/24 05:22
Glucose 85 mg/dl (70-99) 12/01/24 05:22
Troponins
11/29/24 11/30/24 11/30/24
19:22 00:07 09:10
Troponin I 0.168 H* 6.170 H* D 6.880 H*
11/30/24 11/30/24
13:41 17:43
Troponin I 5.140 H* D Cancelled
Vital Signs and I&O:
Vital Signs
Temp Pulse Resp BP Pulse Ox
97.9 F 80 12 115/62 3
12/01/24 07:28 12/01/24 08:48 12/01/24 08:00 12/01/24 08:48 12/01/24 09:26
Vital Signs
Temp Pulse Resp BP Pulse Ox
97.9 F 80 12 115/62 3
12/01/24 07:28 12/01/24 08:48 12/01/24 08:00 12/01/24 08:48 12/01/24 09:26
Intake & Output
11/29/24 11/30/24 12/01/24 12/02/24
06:59 06:59 06:59 06:59
Intake Total 764 / 764
Output Total 100 / 100 1475 / 1475
Balance -100 / -100 -711 / -711
Physical Exam
Physical Exam
GEN: NAD.
HEENT: EOMI
LUNGS: RA. No audible wheeze
CV: A paced on tele. Reg, no murmur
ABD: ND
EXT: No edema B/L
NEURO: Gross non-focal
SKIN: No rash
--- NOTE | 2024-12-01 10:08 | PN.CDI ---
CDI
- -
CDI:
Physician Documentation Request
Admit Date: 11/29/24 22:09
Dear Doctor Lesley,
Please review the following and provide your response in the progress notes.
Clinical Indicators:
Height: 6'
Weight: 129 lbs
BMI:17.6
If possible, please provide an associated diagnosis related to the abnormal BMI, such as:
Underweight
Cachectic
BMI is not significant
Other
BMI < or = to 19.9
Underweight
Weight Loss
Cachectic
Anorexia
Use of terms such as suspected, likely, concern for, or probable (associated with a specific diagnosis that is being evaluated, monitored, or treated as if it exists) are acceptable and can be coded in the inpatient setting, when documented at the
time of discharge.
Thank you,
Nany Barrera RN, BSN
CDI Specialist
Available via [place] text
Please use your independent medical judgment in providing your response.
[2024-12-01] MEDS: HEPARIN 25000 UNITS/250 ML IV (11:12)
[2024-12-01 11:41] LABS: APTT 78.3 Sec (23.4-35.0)
[2024-12-01 11:42] LABS: Hematocrit 28.1 % (39.0-52.0); Hemoglobin 9.2 g/dL (13.0-18.0)
[2024-12-01 12:01] LABS: Reticulocyte Count 5.1 % (0.4-2.8)
[2024-12-01 12:05] LABS: Iron 40 ug/dl (49-181)
[2024-12-01 12:14] LABS: Percent Saturation 16 % (20-50); Total Iron Binding Capacity 249 ug/dl (261-462)
--- NOTE | 2024-12-01 12:50 | W.PN.HOSP.TC ---
Today's Communication/Plan
-
follow H&H
anemia w/u
check FOBT
CT chest/abd/pelvis
Assessment / Plan
Assessment / Plan
84yo M with PMHX of SSS s/p PPM, HFrEF s/p ICD, ischemic CM, CAD s/p PCI, paroxysmal Afib, HTN, COPD, orthostatic hypotension brought from [place] with sudden onset of SOB and hypoxia, Chest XR concerned for RUL and RLL pneumonia complicated by
pulmonary edema complicated by NSTEMI
A/P:
#Acute hypoxic respiratory failure 2/2 acute on chronic HFrEF exacerbation
#Ischemic CM (EF 25%
#RUL and RLL CAP
#Possible NSTEMI with PMHx of CAD
#Paroxysmal Afib
#S/p PPM
#S/P ICD
pro-BNP >92773
Lasix, daily weights, follow Cr and electrolytes, Barraza for I&O
Trend troponin, heparin drip, ASA, statin
Echo: EF 20-25%mild valvular disease, akinesis of the mid to distal anterior wall, apex, and lateral jarquin - unchanged
EKG without overt ST elevation
With PMHx of orthostatic hypotension - defer initiation of BB to cardiology
Cardiology consult: cardiac cath for 12/02/24
Telemetry
cont rate and rhythm control
Right-sided pneumonia- risk of aspiration, Vanco/Cefepime/Doxy will plan early switch to deescalate if keeps improving
Bcx NTD
COVID-19, Influenza PCR neg
Legionella and S.pneumonia Ag neg
Cannot exclude component of amiodarone induced ILD - CT will be useful as per pulm
#Acute anemia
no overt bleeding
check FOBT - RN aware
serial H&H
no bruising or swelling of b/l UE or LE concerning for intramuscular bleed
no significant abdominal tenderness, but will make sense to r/o abd hematoma with CT
anemia W/U
Daughter consented for blood transfusion if needed
#GERD
#HLD
cont home meds
DVT ppx hep drip
Full code
I have spent at least 57min reviewing chart, test results, communication with consultants and providing direct patient care
Anticipated Discharge: > 48 hours
Subjective/Interval History
-
Date of Service: December 01, 2024
Objective Data
-
Labs:
Laboratory Results
12/01/24 12/01/24 12/01/24
05:22 09:00 11:19
WBC 7.0
Hgb 8.5 L D Cancelled
Hct 25.6 L Cancelled
Plt Count 208
APTT 68.3 H 78.3 H
Sodium 132 L
Potassium 4.4
Chloride 100
Carbon Dioxide 28
BUN 26 H
Creatinine 1.1
Glucose 85
Calcium 8.0 L
Total Bilirubin 1.2
AST 32
ALT 21
Alkaline Phosphatase 105
12/01/24 12/01/24 12/01/24
11:24 17:00 17:30
WBC
Hgb 9.2 L Cancelled
Hct 28.1 L Cancelled
Plt Count
APTT Pending
Sodium
Potassium
Chloride
Carbon Dioxide
BUN
Creatinine
Glucose
Calcium
Total Bilirubin
AST
ALT
Alkaline Phosphatase
12/01/24
19:30
WBC
Hgb Pending
Hct Pending
Plt Count
APTT
Sodium
Potassium
Chloride
Carbon Dioxide
BUN
Creatinine
Glucose
Calcium
Total Bilirubin
AST
ALT
Alkaline Phosphatase
Vital Signs:
Vital Signs
Temp Pulse Resp BP Pulse Ox
98.3 F 75 18 108/59 99
12/01/24 11:34 12/01/24 11:34 12/01/24 11:34 12/01/24 10:00 12/01/24 11:34
I&O
11/30/24 12/01/24 12/02/24
06:59 06:59 06:59
Intake Total 764 / 764
Output Total 100 / 100 1475 / 1475
Balance -100 / -100 -711 / -711
Review of Systems
-
History Source: Patient
All other systems: Reviewed and negative
Physical Exam
-
General: Comfortable
HEENT: Normocephalic
Respiratory: Clear to Auscultation
GI: Soft, Nontender and Nondistended
Musculoskeletal: No Clubbing, No Cyanosis and No Edema
Neuro: Awake, Alert, Oriented and AO x 3
Psych: Calm
[2024-12-01 13:11] LABS: Folate 5.6 ng/ml (2.76-20); Vitamin B12 734 pg/ml (239-931)
[2024-12-01 13:27] LABS: LDH 375 U/L (120-246)
--- NOTE | 2024-12-01 13:47 | W.PN.UPDATE ---
Update Note
Progress Note Update
Anemia of acute diseae with minimally elevated LDH. Doubt hemolysis - haptoglobin pending
BUN minimally elevated - unlikely brisk upper GIB. reasonable temporary PPI drip and close monitoring
FOBT still pending
[2024-12-01] MEDS: PROTONIX IV 80 MG IV (14:19)
[2024-12-01] MEDS: PROTONIX 100 IV (14:19)
[2024-12-01] MEDS: COREG 3.125 MG PO ×2 (14:20→20:44)
[2024-12-01] MEDS: MAXIPIME 1000 MG IV ×2 (16:31→23:20)
[2024-12-01] MEDS: LIPITOR 80 MG PO (17:25)
[2024-12-01 17:48] LABS: APTT 73.5 Sec (23.4-35.0)
[2024-12-01 17:50] LABS: Hemoglobin 8.8 g/dL (13.0-18.0)
[2024-12-01] MEDS: SENOKOT 8.6 MG PO (20:45)
--- NOTE | 2024-12-01 21:28 | PTCARENOTE ---
Patient aao x2 to person and time, affect pleasant. Patient able to verbalize needs and follow basic commands. Call jewell within reach. 100% A paced on the monitor, weak pp b/l, positive radial pulses b/l, no edema noted. Lungs diminished throughout
with small amount of scattered rhonchi. Pox low to mid 90's on ra. Acosta cath remains patent and draining clear, yellow urine. Heel dressings c/d/i as well as right hip dressing. Patient has heparin gtt at 800u/8ml/hr through right proximal forearm
iv, protonix gtt running to right distal forearm iv, and gets IV abt to left ac int. Hygiene provided with chg wipes, patient able to assist. Patient currently resting in bed, denies pain, will continue to monitor patient closely.
[2024-12-02] VITALS (13 sets, daily range): BP systolic 99–128; BP diastolic 52–79; BMI 17.9
[2024-12-02] MEDS: PROTONIX 100 IV ×3 (00:24→21:40)
[2024-12-02 00:44] LABS: Hematocrit 27.1 % (39.0-52.0); Hemoglobin 9.1 g/dL (13.0-18.0)
[2024-12-02 04:55] LABS: % Basophils 0.7 % (0-2); % Eosinophils 0.7 % (0-6); % Immature Granulocytes 0.7 % (0-0.5); % Lymphocytes 9.2 % (20.5-51.1); % Monocytes 10.9 % (1.7-9.3); % Neutrophils 77.8 % (42.2-75.2); Absolute Basophils 0.1 10^3/uL (0-0.2); Absolute Eosinophils 0.1 10^3/uL (0-0.7); Absolute Immature Granulocytes 0.1 10^3/uL (0-0.05); Absolute Lymphocytes 0.7 10^3/uL (1.2-3.4); Absolute Monocytes 0.8 10^3/uL (0.1-0.6); Absolute Neutrophils 5.7 10^3/uL (1.4-6.5); Hematocrit 25.1 % (39.0-52.0); Hemoglobin 8.5 g/dL (13.0-18.0); Mean Corp Hgb Conc. 33.9 g/dL (33.0-37.0); Mean Corpuscular Hgb 30.6 pg (27.0-31.0); Mean Corpuscular Volume 90.3 fL (80.0-94.0); Mean Platelet Volume 10.1 fL (7.4-10.4); Nucleated Red Blood Cells % 0 % (-); Platelet Count 202 10^3/uL (130-400); Red Blood Cell Count 2.78 10^6/uL (4.70-6.10); Red Cell Dist. Width 17.2 % (11.5-14.5); White Blood Cell Count 7.3 10^3/uL (4.8-10.8)
[2024-12-02 05:05] LABS: APTT 59.1 Sec (23.4-35.0)
[2024-12-02 05:23] LABS: Vancomycin Random 9.7 ug/ml
[2024-12-02 05:24] LABS: ALT (SGPT) 26 U/L (0-50); AST (SGOT) 32 U/L (17-59); Albumin 2.6 g/dl (3.5-5.0); Alkaline Phosphatase 117 U/L (38-126); Blood Urea Nitrogen 30 mg/dl (9-20); Calcium 8.2 mg/dl (8.4-10.2); Carbon Dioxide 24 mmol/L (22-30); Chloride 100 mmol/L (98-107); Estimated Creatinine Clearance 42 ml/min; Glucose 94 mg/dl (70-99); Potassium 3.9 mmol/L (3.5-5.1); Sodium 130 mmol/L (135-145); Total Bilirubin 1.4 mg/dl (0.2-1.3); Total Protein 4.8 g/dl (6.3-8.2); eGFR > 60.00
[2024-12-02] MEDS: DUONEB 3 ML INH ×4 (07:22→19:49)
--- NOTE | 2024-12-02 08:12 | PHA.VAN.FU ---
Vancomycin Assessment / Plan
- Assessment
Renal Function: Stable (SCr 1.1)
WBC's are: WNL (7.3)
In the past 24 hrs, patient has been: Afebrile
Concomitant Antimicrobials: Cefepime, Doxycycline
- Assessment - Therapeutic Drug Monitoring
Random Level: R lvl 9.7 ~18.5hrs after end of infusion at 12/01/24 0906
- Dosing Plan
Continue: Dose by level
Dosing by Level: Re-dose today
Dosing Comments: Vanco 1000mg x1
- Monitoring Plan
Random Level: Vanco level 12/03/24 0600
- Follow Up
Pharmacy will continue to follow.
Vancomycin Follow UP
- -
Patient Age: 84
Patient Sex: Male
Vancomycin Day #: 3
Indication: Pulmonary/Respiratory
Requesting Provider: Dr. Jean
Pertinent Antimicrobial Allergies:
nkda
Height / Weight:
Height 6 ft
Actual Weight 59.9 kg
IBW in k.6
Pertinent Past Medical History: acute hypoxic respiratory failure
- Vital Signs / Lab Results
Temp Pulse Resp BP Pulse Ox
98.4 F 74 16 103/56 99
12/02/24 03:16 12/02/24 07:23 12/02/24 07:23 12/02/24 06:00 12/02/24 07:23
Lab Results - Hematology
11/29/24 11/30/24 11/30/24
19:22 02:04 04:21
WBC 15.6 H 14.3 H 15.0 H
12/01/24 12/02/24
05:22 04:38
WBC 7.0 7.3
Lab Results - Chemistry
11/29/24 11/30/24 12/01/24
19:22 04:21 05:22
BUN 20 24 H 26 H
Creatinine 1.3 1.3 1.1
Estimated Creat Clear 36 34 41
Albumin 3.5 2.4 L
12/02/24
04:38
BUN 30 H
Creatinine 1.1
Estimated Creat Clear 42
Albumin 2.6 L
11/29/24 11/30/24 11/30/24
19:22 00:07 04:21
Lactic Acid 5.5 H* 3.7 H 3.1 H
11/30/24 11/30/24 11/30/24
09:10 13:41 18:31
Lactic Acid 3.4 H 4.8 H* 3.1 H
11/30/24 12/01/24 12/01/24
23:11 00:00 06:00
Lactic Acid 1.9 Cancelled Cancelled
Microbiology Results
11/29/24 19:22 Blood Culture - Preliminary
Blood/Venous No Growth in 48 hours- Final report to follow
11/29/24 19:22 Blood Culture - Preliminary
Blood/Venous No Growth in 48 hours- Final report to follow
11/30/24 14:13 MRSA Screen - Final
Nose No Methicillin Resistant Staphylococcus aureus isolated.
11/30/24 14:13 Urine Culture - Final
Urine NO GROWTH
11/30/24 14:13 Streptococcus pneumoniae Antigen (M - Final
Urine Negative for Streptococcus pneumoniae antigen.
A negative result does not exclude infection with
Streptococcus pneumoniae. Clinical correlation is
recommended.
11/30/24 14:13 Legionella Urinary Antigen - Final
Urine Negative for Legionella pneumophila Serogroup 1 antigen.
A negative result does not rule out the possiblity of
Legionella infection due to other serogroups or species of
Legionella. Clinical correlation is recommended.
Therapeutic Drug Monitoring
Random Vancomycin 9.7 ug/ml 12/02/24 04:38
[2024-12-02 08:21] LABS: Direct Bilirubin 0.5 mg/dl (0.0-0.4)
[2024-12-02] MEDS: VIBRAMYCIN 260 MG IV ×2 (09:02→21:41)
[2024-12-02] MEDS: MIRALAX 17 GRAMS PO (09:02)
[2024-12-02] MEDS: ProAmatine 5 MG PO ×3 (09:04→21:42)
[2024-12-02] MEDS: MAXIPIME 1000 MG IV (09:04)
[2024-12-02] MEDS: STERILE WATER FOR INJECTION 10 ML IV ×2 (09:04→16:33)
[2024-12-02] MEDS: COREG 3.125 MG PO ×2 (09:04→21:41)
[2024-12-02] MEDS: PACERONE 100 MG PO (09:05)
[2024-12-02] MEDS: LASIX 40 MG IV (09:05)
--- NOTE | 2024-12-02 09:34 | W.PN.HOSP.TC ---
Today's Communication/Plan
-
cont diuresis
for cardiac cath
watch Hgb
check stool for occult blood
NeuroSx consult
Assessment / Plan
Assessment / Plan
84yo M with PMHX of SSS s/p PPM, HFrEF s/p ICD, ischemic CM, CAD s/p PCI, paroxysmal Afib, HTN, COPD, orthostatic hypotension brought from [place] with sudden onset of SOB and hypoxia, Chest XR concerned for RUL and RLL pneumonia complicated by
pulmonary edema complicated by NSTEMI
A/P:
#Acute hypoxic respiratory failure 2/2 acute on chronic HFrEF exacerbation
#Ischemic CM (EF 25%
#RUL and RLL CAP
#Possible NSTEMI with PMHx of CAD
#Paroxysmal Afib
#S/p PPM
#S/P ICD
pro-BNP >56682
Lasix, daily weights, follow Cr and electrolytes, Alba for I&O
Trend troponin, heparin drip, ASA, statin
Echo: EF 20-25%mild valvular disease, akinesis of the mid to distal anterior wall, apex, and lateral jarquin - unchanged
EKG without overt ST elevation
With PMHx of orthostatic hypotension - defer initiation of BB to cardiology
Cardiology consult: cardiac cath for 12/02/24
Telemetry
cont rate and rhythm control
Right-sided pneumonia- risk of aspiration, Vanco/Cefepime/Doxy will plan early switch to deescalate if keeps improving
Bcx NTD
COVID-19, Influenza PCR neg
Legionella and S.pneumonia Ag neg
Cannot exclude component of amiodarone induced ILD - CT showed Moderate amount of perihilar groundglass opacity in the upper lobes of both lungs - Pulmonary edema
#Acute anemia
no overt bleeding
check FOBT - RN aware
serial H&H remains stable
no bruising or swelling of b/l UE or LE concerning for intramuscular bleed
no significant abdominal tenderness, no hematoma on CT abd/pelvis
LDH elevated minimally, haptoglobin pending, Croombs neg
Daughter consented for blood transfusion if needed
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
#acute fracture of T11, complete vertebral body collapse, and retropulsion of the endplate into the spinal canal
Patient does not report change in his chronic back pain, no recent fall, no new paresthesia, numbness and able to move both of his LE as usual
NeuroSx consult
#Mild indirect bilirubinemia
watch
#constipation
laxatives
#Fusiform infrarenal abdominal aortic aneurysm
2.6cm
monitor as outpatient
#Protein calorie malnutrition
BMI 17.9
Ensure supplements
#GERD
#HLD
cont home meds
#BPH
alba placed
Tamsulosin limited with hypotension and need in diuresis
DVT ppx hep drip
Full code
I have spent at least 57min reviewing chart, test results, communication with consultants and providing direct patient care
Anticipated Discharge: > 48 hours
Subjective/Interval History
-
Date of Service: December 02, 2024
Objective Data
-
Labs:
Laboratory Results
12/02/24 12/02/24 12/02/24
00:35 04:38 11:24
WBC 7.3
Hgb 9.1 L 8.5 L
Hct 27.1 L 25.1 L
Plt Count 202
APTT 59.1 H Pending
Sodium 130 L
Potassium 3.9
Chloride 100
Carbon Dioxide 24
BUN 30 H
Creatinine 1.1
Glucose 94
Calcium 8.2 L
Total Bilirubin 1.4 H
AST 32
ALT 26
Alkaline Phosphatase 117
Vital Signs:
Vital Signs
Temp Pulse Resp BP Pulse Ox
98.4 F 75 16 105/59 99
12/02/24 07:05 12/02/24 09:05 12/02/24 07:23 12/02/24 09:05 12/02/24 07:23
I&O
12/01/24 12/02/24 12/03/24
06:59 06:59 06:59
Intake Total 764 / 764 1616 / 1616
Output Total 1475 / 1475 1350 / 1350
Balance -711 / -711 266 / 266
Review of Systems
-
History Source: Patient
All other systems: Reviewed and negative
Abdomen/GI: Reports Constipated; Denies Abdominal Pain
Physical Exam
-
General: No Apparent Distress
HEENT: Normocephalic
Respiratory: Clear to Auscultation
GI: Soft, Nontender and Nondistended
Musculoskeletal: No Clubbing, No Cyanosis and No Edema
Neuro: Awake, Alert, Oriented and AO x 3
Psych: Calm
[2024-12-02] MEDS: VANCOCIN 200 IV (10:28)
--- NOTE | 2024-12-02 10:47 | PN.CDI ---
Addendum entered and electronically signed by Vincent Sutton MD 12/03/24 10:03:
No sepsis
Original Note:
CDI
- -
CDI:
Physician Documentation Request
Admit Date: 11/29/24 22:09
Dear Doctor Lesley,
Patient admitted with respiratory failure.
11/29 ER Physician Documentation: 'With elevation in white blood cell count and lactic acid will treat for sepsis with antibiotics. Patient given midodrine to help supplement his blood pressure will need some diuresis as well...not giving 30cc /kg
IVF for sepsis given clinical concern for CHF'
Laboratory Tests
11/29/24 11/30/24
19:22 02:04
WBC 15.6 H 14.3 H
11/29/24
19:06 11/29/24
19:45 11/29/24
21:30
Pulse 110 96 104
11/29/24
19:15 11/29/24
20:10 11/29/24
22:15
Resp Rate 25 27 28
The diagnosis of sepsis was documented on 11/29, but is not consistently noted in subsequent documentation.
Please clarify the following:
____ - Sepsis was present on admission and is now resolved.
____ - Sepsis was present on admission and is still being monitored, evaluated or treated
____ - Sepsis was ruled out
____ - Sepsis is still a likely, suspected, probable diagnosis
____ - Other
Use of terms such as suspected, likely, concern for, or probable (associated with a specific diagnosis that is being evaluated, monitored, or treated as if it exists) are acceptable and can be coded in the inpatient setting, when documented at the
time of discharge.
Thank you,
Nany Barrera RN, BSN
CDI Specialist
Available via [employer] text
Please use your independent medical judgment in providing your response.
--- NOTE | 2024-12-02 11:40 | PTCARENOTE ---
Acosta was removed this morning at 0600 by nightshift RN. Patient DTV by 1200. Pt bladder scanned at 11:30 for 38mls.
[2024-12-02 12:05] LABS: APTT 110.5 Sec (23.4-35.0)
[2024-12-02] MEDS: LOW STRENGTH ASPIRIN 81 MG PO (12:40)
--- NOTE | 2024-12-02 13:52 | W.PN.CARDCBS ---
Today's Communication / Plan
-
Plan:
-Patient was seen bedside and was very confused so I reached out to the daughter who came up from the emergency room and extensive discussion was had with her at bedside.
-Troponin peaked at 6.88. Echo noted above without change, but given presentation concerning for possible decompensated heart failure and flash pulmonary edema, discussions so far have been had to proceed with ischemic evaluation with a left and
right heart catheterization in the setting of known severe ischemic cardiomyopathy. Last cath was in 2022 at [facility] when patient had LAD and Circ PCI plus known USER EXPERIENCE ARCHITECT RCA, report located by me and printed for reference by cath physician.
-Heparin gtt continued, following PTTs.
-Outpatient dose of Xarelto 15 mg daily has been on hold since admission, last dosed 11/28/2024
-Medical therapy is limited by hypotension. Previous doses of Coreg 3.125 mg BID, lisinopril 5 mg daily and spironolactone 25 mg daily were held starting last admission due to hypotension/AYE and remain on hold.
-Outpatient dose of midodrine 5 mg TID has been continued.
-Patient was taking Lasix 40 mg PO daily prior to admission.
-EF 20 to 25% and is being managed as ICM. GDMT limited as noted above
-Patient with Medtronic DC ICD and Dr. Lei increased base pacing rate to 75 on 11/17/24 to help increase cardiac output.
-Patient with known paroxysmal Afib. Cont amiodarone 100 mg daily. Xarelto on hold since November 28, 2024.
-Extensive discussion was had as patient was very confused at bedside not being able to relate what a heart catheterization is or why we were considering it. He could not even tell me why he is here this admission. All he wanted to do is eat lunch.
-Acute on chronic anemia noted with hemoglobins on presentation in the 's however over the last 3 days in the low to mid 8 range without overt bleeding. He has not had any bowel movements to allow checking a fecal occult blood. Recommend workup
for anemia per primary team including iron studies, ruling out concerns for hemolysis given elevated LDH, ruling out hematuria. Discussed with nursing at bedside no gross blood noted in urine so far.
-I discussed with Maci, his daughter that we may have to pursue a diagnostic left and right heart catheterization given severe ischemic cardiomyopathy and history of prior stents with an RCA USER EXPERIENCE ARCHITECT to define anatomy first while we keep working up
his anemia and trial additional blood thinners on top of his baseline Xarelto in case he were to need a stent to make sure he can tolerate with the acute on chronic anemia of unclear etiology currently. Given patient is very keen on just eating
lunch and not getting the procedure completed today, our plan is to proceed with this tomorrow morning. I went over the procedural details including the risk and benefits with the patient after also discussing alternative to just medically manage
and potential risk for increased MACE events and the daughter thinks family would want patient to proceed with procedure and she tells me this is what the patient would also want. I consented the daughter at bedside and we will plan to proceed with
heart catheterization in the morning.
-We communicated with primary hospitalist team to proceed with anemia workup.
Impression / Plan
-
Primary Care Provider: Dr Leidy Mora
Primary mails supervisor: Dr Jillian Yanez
Impression:
Admitted with multifactorial SOB 11/29/24
Recent admission for AYE on CKD 3b 11/14/24 until 11/20/24
Multifocal PNA
Acute on chronic HFrEF
Ischemic cardiomyopathy 25%
Elevated Troponin
Hyponatremia
Recent admission to [facility] for sepsis 10/2024
MSSA bacteremia followed by d/c to [facility] and outpatient [facility] at was negative for vegetation 10/29/24
CAD
OK and PTCA alone of unknown vessel 1990
anterior STEMI s/p LAD STEPHAN 06/02/2023
s/p cath with USER EXPERIENCE ARCHITECT RCA, stage mid-LAD mid STEPHAN & LCX at [facility] 07/11/2023
s/p Medtronic DC ICD 12/2023
HTN
Paroxysmal Afib
Chronic Xarelto OAC
Chronic amiodarone therapy
HLD
COPD
PVD
BPH/TURP
Former smoker
Echo 11/22/23: LAD distribution akinesis, EF 20 to 25%, mild MR/AI
NICOLAS 10/29/24: DH study following admission to [facility] for MSSA bacteremia, EF 20 to 25%, normal RV size and function, positive echo contrast with no evidence of thrombus, mild MR/TR/AI, moderate atherosclerotic plaque, nonmobile, no evidence of vegetation
Plan:
-Patient was seen bedside and was very confused so I reached out to the daughter who came up from the emergency room and extensive discussion was had with her at bedside.
-Troponin peaked at 6.88. Echo noted above without change, but given presentation concerning for possible decompensated heart failure and flash pulmonary edema, discussions so far have been had to proceed with ischemic evaluation with a left and
right heart catheterization in the setting of known severe ischemic cardiomyopathy. Last cath was in 2022 at [facility] when patient had LAD and Circ PCI plus known USER EXPERIENCE ARCHITECT RCA, report located by me and printed for reference by cath physician.
-Heparin gtt continued, following PTTs.
-Outpatient dose of Xarelto 15 mg daily has been on hold since admission, last dosed 11/28/2024
-Medical therapy is limited by hypotension. Previous doses of Coreg 3.125 mg BID, lisinopril 5 mg daily and spironolactone 25 mg daily were held starting last admission due to hypotension/AYE and remain on hold.
-Outpatient dose of midodrine 5 mg TID has been continued.
-Patient was taking Lasix 40 mg PO daily prior to admission.
-EF 20 to 25% and is being managed as ICM. GDMT limited as noted above
-Patient with Medtronic DC ICD and Dr. Lei increased base pacing rate to 75 on 11/17/24 to help increase cardiac output.
-Patient with known paroxysmal Afib. Cont amiodarone 100 mg daily. Xarelto on hold since November 28, 2024.
-Extensive discussion was had as patient was very confused at bedside not being able to relate what a heart catheterization is or why we were considering it. He could not even tell me why he is here this admission. All he wanted to do is eat lunch.
-Acute on chronic anemia noted with hemoglobins on presentation in the 11's however over the last 3 days in the low to mid 8 range without overt bleeding. He has not had any bowel movements to allow checking a fecal occult blood. Recommend workup
for anemia per primary team including iron studies, ruling out concerns for hemolysis given elevated LDH, ruling out hematuria. Discussed with nursing at bedside no gross blood noted in urine so far.
-I discussed with Maci, his daughter that we may have to pursue a diagnostic left and right heart catheterization given severe ischemic cardiomyopathy and history of prior stents with an RCA USER EXPERIENCE ARCHITECT to define anatomy first while we keep working up
his anemia and trial additional blood thinners on top of his baseline Xarelto in case he were to need a stent to make sure he can tolerate with the acute on chronic anemia of unclear etiology currently. Given patient is very keen on just eating
lunch and not getting the procedure completed today, our plan is to proceed with this tomorrow morning. I went over the procedural details including the risk and benefits with the patient after also discussing alternative to just medically manage
and potential risk for increased MACE events and the daughter thinks family would want patient to proceed with procedure and she tells me this is what the patient would also want. I consented the daughter at bedside and we will plan to proceed with
heart catheterization in the morning.
-We communicated with primary hospitalist team to proceed with anemia workup.
HPI: Patient came to [facility] yesterday from the rehab section at [facility] with complaints of XIE and hypoxia and he has now admitted with multifactorial hypoxia including acute HFrEF and cardiology has been consulted. Patient was admitted to [facility] in
10/2024 with MSSA bacteremia and he was then discharged back to his assisted living apartment at [facility] and later completed an outpatient [facility] at on 10/29/2024 that was negative for vegetation. He was then admitted to from 11/14/2024 until
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 Cre as high as 1.8 on admission earlier this month and then improved with holding diuretic. Patient had been taking Lasix 80 mg daily on admission and he was ultimately d/c'd to rehab on Lasix 40 mg
daily. Also during that admission, his outpatient doses of Coreg 3.125 mg BID, lisinopril 5 mg daily and spironolactone 25 mg daily were held for hypotension and had not yet been resumed at the time of d/c. Patient was also newly started on
midodrine 5 mg TID that admission. Instead of returning to his assisted living apartment at [facility] the patient went to rehab at [facility] [place] home and was reportedly pushing a wheelchair around the facility yesterday when he complained of being SOB
and was noted to be hypoxic and was sent to ER where CXR was concerning for multifocal PNA and possible acute HFrEF. Patient has known ICM with EF 20 to 25% at least as far back as 2023. He also has history of PTCA and stenting of the LAD and
circumflex in 07/2023 at [facility] and also has a known USER EXPERIENCE ARCHITECT of the RCA. Patient also with known paroxysmal A-fib and is chronically on Xarelto 15 mg daily. When he was seen in the cardiology office on 09/11/2024 his Xarelto was continued, but his chronic
Plavix was stopped in favor of aspirin 81 mg daily. Cardiology was consulted and part due to troponin elevation seen this admission, troponin was initially 0.16 and then on recheck very early this morning and had increased to a level of 6. Patient
denies any CP.
Progress Note - Geriatric Assistant
Subjective
Date of Service: December 02, 2024
Patient was seen bedside and was very confused so I reached out to the daughter who came up from the emergency room and extensive discussion was had with her at bedside.
Objective
Labs:
12/02/24 04:38
12/02/24 04:38
Labs
Hgb 8.5 g/dL (13.0-18.0) L 12/02/24 04:38
Hct 25.1 % (39.0-52.0) L 12/02/24 04:38
Plt Count 202 10^3/uL (130-400) 12/02/24 04:38
APTT 110.5 Sec (23.4-35.0) H 12/02/24 11:35
Sodium 130 mmol/L (135-145) L 12/02/24 04:38
Potassium 3.9 mmol/L (3.5-5.1) 12/02/24 04:38
BUN 30 mg/dl (9-20) H 12/02/24 04:38
Creatinine 1.1 mg/dL (0.7-1.3) 12/02/24 04:38
Glucose 94 mg/dl (70-99) 12/02/24 04:38
Troponins
11/29/24 11/30/24 11/30/24
19:22 00:07 09:10
Troponin I 0.168 H* 6.170 H* D 6.880 H*
11/30/24 11/30/24
13:41 17:43
Troponin I 5.140 H* D Cancelled
Vital Signs and I&O:
Vital Signs
Temp Pulse Resp BP Pulse Ox
97.8 F 75 14 115/61 100
12/02/24 11:04 12/02/24 10:36 12/02/24 10:36 12/02/24 10:00 12/02/24 10:36
Vital Signs
Temp Pulse Resp BP Pulse Ox
97.8 F 75 14 115/61 100
12/02/24 11:04 12/02/24 10:36 12/02/24 10:36 12/02/24 10:00 12/02/24 10:36
Intake & Output
11/30/24 12/01/24 12/02/24 12/03/24
06:59 06:59 06:59 06:59
Intake Total 764 / 764 1616 / 1616
Output Total 100 / 100 1475 / 1475 1350 / 1350
Balance -100 / -100 -711 / -711 266 / 266
Physical Exam
Physical Exam
GEN: NAD, confused A+O x1
HEENT: EOMI
LUNGS: RA. No audible wheeze
CV: A paced on tele. Reg, no murmur
ABD: ND
EXT: No edema B/L
NEURO: Gross non-focal
SKIN: No rash
--- NOTE | 2024-12-02 14:06 | CON.NS ---
Consultation
-
Date/Time Consultation Performed: 12/02/2024; 14:00
Performing Provider: Colleen
Chief Complaint
History of Present Illness
This is a neurosurgical consultation on a 84-year-old gentleman who presented on 11/29/2024 with bilateral lower extremity edema, shortness of breath. He has active medical issues including LAD stent placement, ischemic cardiomyopathy with an
ejection fraction of 20 to 25%, status post ICD, pacemaker, paroxysmal atrial fibrillation on Xarelto, amiodarone, hypertension, hyperlipidemia, and chronic kidney disease. He has recurrent falls. He was admitted approximately 10 days prior with
weakness which was ultimately felt to be secondary to symptomatic hypotension in the setting of advanced cardiomyopathy. In the emergency room, he was noted to have elevated BNP. He is being managed/treated for this. He will also noted to have
increased troponin. He was started on heparin infusion with ACS protocol.
Patient is being managed for his medical issues by hospital medicine. It is felt that he likely has right upper lobe, right lower lobe pneumonia, complicated by pulmonary edema, complicated by NSTEMI. Patient was noted to have acute anemia, which
prompted CT of the abdomen/pelvis. This demonstrated reported acute fracture of T11 with complete vertebral body collapse. Patient, reported to hospital medicine, that he does not have any change in his chronic back pain. However, given imaging
findings, neurosurgery consulted.
Of note, patient was admitted to [facility] on October 12, 2024 and I am able to review the chart from there. He presented as a trauma alert due to unwitnessed fall. At that time, he underwent CT of the chest, abdomen/pelvis which
demonstrated compression deformities of T3, T6, L3-L5. During that visit, patient endorsed some low back pain, and was seen by infectious disease. He was being treated for MSSA bacteremia. In light of this, workup for possible osteomyelitis was
pursued with contrast-enhanced MRI of the thoracic, lumbar spine.
MRI of the thoracic spine performed on 10/19/2024 made note of chronic, stable compression fractures at T3, T6 with no evidence of osteomyelitis/discitis. No compression deformity was noted at T11.
MRI of the lumbar spine also demonstrated multiple compression deformities including L5, L4, L3, all chronic in nature.
Neurosurgery consulted for acute T11 fracture.
Patient seen and examined. Denies any back pain. Denies any numbness, tingling, weakness in legs.
Review of Systems
-
10 point review of systems including constitutional, ENT, cardiovascular, respiratory, GI, , neurologic, endocrinologic, musculoskeletal, hematologic was performed, was negative, except for stated in HPI.
Medication and Allergies
Home Medications
Home Medications
�Medication �Instructions �Recorded
atorvastatin 80 mg tablet 80 mg PO QPM High Cholesterol 08/19/23
magnesium oxide 400 mg PO BID Supplement 08/19/23
pantoprazole 40 mg tablet,delayed 40 mg PO QPM Gastrointestinal Issue 08/19/23
release
rivaroxaban 15 mg tablet (Xarelto) 15 mg PO DAILY Blood Clot 08/19/23
Prevention/Tx
acetaminophen 325 mg tablet 650 mg (2 x 325 mg) PO Q4HPRN PRN 11/20/24
mild pain/[place]/temp> 100.4F #10 tabs
amiodarone 100 mg tablet (Pacerone) 100 mg PO DAILY #30 tabs 11/20/24
furosemide 40 mg tablet 40 mg PO DAILY #30 tabs 11/20/24
midodrine 5 mg tablet 5 mg PO Q4HPRN PRN sbp less than 11/20/24
100 #10 tabs
midodrine 5 mg tablet 5 mg PO TID@0800,1300,1800 #90 tabs 11/20/24
polyethylene glycol 3350 17 gram 17 g PO DAILY #30 ea 11/20/24
oral powder packet
sennosides 8.6 mg capsule (senna) 8.6 mg PO HS Constipation #0 caps 11/20/24
bisacodyl 10 mg rectal suppository 10 mg WA DAILYPRN PRN IF NO BM 11/29/24
(Dulcolax (bisacodyl)) AFTR MOM
magnesium hydroxide 400 mg/5 mL 2,400 mg PO DAILYPRN PRN IF NO BM 11/29/24
oral suspension (Milk of Magnesia) BY 2ND DAY
sodium phosphates 19 gram-7 118 ml WA DAILYPRN PRN IF NO BM 11/29/24
gram/118 mL enema (Fleet Enema) AFTR DULCOLAX
zinc oxide 20 % topical paste 1 ea topical TID SACRUM,COCCYX 11/29/24
BUTTOCK
Allergies
Allergies
Allergy/AdvReac Type Severity Reaction Status Date / Time
No Known Allergies Allergy Verified 11/09/24 13:12
Physical Exam
-
Exam:
awake, alert, NAD
CN2-12 grossly intact.
Motor: 5/5 strength in legs bilaterally.
Sensation to LT intact.
Head: NC/AT
Chest: breathing nonlabored
Abd: soft
Extremities warm
CT of the chest/abdomen/pelvis performed on 12/01/2024 was reviewed. Images were personally viewed and interpreted by me. There is evidence of interval development of T11 compression deformity when compared to previous imaging studies performed in
October 12, and October 19, 2024. Mild retropulsion is noted. There is approximately 50 to 75% height loss noted.
Problems
-
Problem Status Onset Code
Sepsis A41.9
Pneumonia J18.9
CHF (congestive heart failure) I50.9
Acute hypoxic respiratory failure J96.01
Assessment / Plan
-
This is an 84-year-old gentleman with multiple medical morbidities, several falls over the last several months, who presents with shortness of breath, and likely pneumonia. Elevated BNP. CT of the chest/abdomen/pelvis was performed which revealed
acute T11 fracture.
Patient without symptoms, and nonfocal exam.
Recommend pain control
Mobilization as tolerated
TLSO brace, when weightbearing, if patient has significant back pain.
Patient can go home per my specialty: Today
--- NOTE | 2024-12-02 14:29 | PTCARENOTE ---
Different fax number for [facility] given to RN by pt's son. Records request faxed to [facility] and received records back. made aware. Records faxed to our MRI dept for compatibility of his spinal stimulator by unit receptionist.
[2024-12-02] MEDS: LIPITOR 80 MG PO (16:32)
[2024-12-02] MEDS: ROCEPHIN 1000 MG IV (16:33)
[2024-12-02] MEDS: HEPARIN 25000 UNITS/250 ML IV (16:34)
[2024-12-02 17:55] LABS: Hemoglobin 9.3 g/dL (13.0-18.0)
[2024-12-02] MEDS: SENOKOT 8.6 MG PO (21:40)
--- NOTE | 2024-12-02 23:23 | PTCARENOTE ---
Assumed care of pt from rashard RN. Pt aaox2, not to place. [place]. A paced on monitor. 93% on RA. Protonix gtt infusing. Heparin gtt infusing at 1000 units/hr. Assessment and vitals as documented. Hygiene completed including alba care. alba
draining clear yellow urine. Pt resting in bed with call jewell in reach.
[2024-12-03] VITALS (19 sets, daily range): BP systolic 98–131; BP diastolic 49–80; BMI 17.5
[2024-12-03 06:22] LABS: % Eosinophils 1.1 % (0-6); % Immature Granulocytes 0.7 % (0-0.5); % Monocytes 11.9 % (1.7-9.3); % Neutrophils 71.3 % (42.2-75.2); Absolute Basophils 0.1 10^3/uL (0-0.2); Absolute Eosinophils 0.1 10^3/uL (0-0.7); Absolute Lymphocytes 0.9 10^3/uL (1.2-3.4); Absolute Monocytes 0.7 10^3/uL (0.1-0.6); Absolute Neutrophils 4.4 10^3/uL (1.4-6.5); Hematocrit 25.8 % (39.0-52.0); Hemoglobin 8.7 g/dL (13.0-18.0); Mean Corp Hgb Conc. 33.7 g/dL (33.0-37.0); Mean Corpuscular Hgb 30.4 pg (27.0-31.0); Mean Corpuscular Volume 90.2 fL (80.0-94.0); Nucleated Red Blood Cells % 0 % (-); Platelet Count 206 10^3/uL (130-400); Red Blood Cell Count 2.86 10^6/uL (4.70-6.10); Red Cell Dist. Width 17.4 % (11.5-14.5); White Blood Cell Count 6.1 10^3/uL (4.8-10.8)
[2024-12-03 06:34] LABS: APTT 125.8 Sec (23.4-35.0)
[2024-12-03 06:52] LABS: ALT (SGPT) 23 U/L (0-50); AST (SGOT) 27 U/L (17-59); Albumin 2.3 g/dl (3.5-5.0); Alkaline Phosphatase 101 U/L (38-126); Blood Urea Nitrogen 30 mg/dl (9-20); Calcium 8.1 mg/dl (8.4-10.2); Carbon Dioxide 26 mmol/L (22-30); Chloride 102 mmol/L (98-107); Estimated Creatinine Clearance 41 ml/min; Glucose 88 mg/dl (70-99); Magnesium 1.9 mg/dl (1.6-2.3); Potassium 3.6 mmol/L (3.5-5.1); Sodium 132 mmol/L (135-145); Total Bilirubin 0.9 mg/dl (0.2-1.3); Total Protein 4.3 g/dl (6.3-8.2); eGFR > 60.00
[2024-12-03] MEDS: ProAmatine 5 MG PO ×3 (07:25→21:29)
[2024-12-03] MEDS: LOW STRENGTH ASPIRIN 81 MG PO (07:26)
--- NOTE | 2024-12-03 07:35 | PTCARENOTE ---
Pt for Cardiac cath, Pt AAOx2 a bit confused. Given Midodrine and asa as ordered. Heparin and protonix off . labor relations supervisor here for pt. Pt on RA no distress
[2024-12-03] MEDS: DUONEB INH ×2 (07:37→11:00)
--- NOTE | 2024-12-03 09:30 | PTCARENOTE ---
Pt return from [facility], AAAOx2-[address] Heparin Gtt restarted
--- NOTE | 2024-12-03 09:40 | ITS.CL.CATH ---
Railroad Signal Technician - Catheterization
Cardiac Catheterization
Procedure Report:
LEFT AND RIGHT HEART CATHETERIZATION
Date of Procedure: December 03, 2024
Referring: Yon Gomez D.O.
PROCEDURES:
1. Left heart catheterization, coronary angiogram.
2. Right heart catheterization.
3. Ultrasound-guided access.
4. Moderate sedation.
INDICATION: NSTEMI in the setting of known ischemic cardiomyopathy and prior coronary artery disease with stents to LAD and left circumflex artery
ACCESS: Right radial artery, 6 Palestinian sheath, under ultrasound guidance.
2. Right brachial venous access, 6 Palestinian sheath, under ultrasound guidance
Ultrasound was utilized for vascular access. The radial artery was visualized under ultrasound, and the vessel was patent and pulsatile. An image was stored permanently in the patient's medical record. Under direct ultrasound guidance, a 6 Palestinian
sheath was inserted into the artery using a micropuncture kit through a modified Seldinger technique.
HEMODYNAMICS : (mmHg)
RA (m) : 11
RV (s/d,m) :37/6, 10
PA (s/d, m) : 37/23, 28
PCWP (m) : 25
PA saturation: 43.8% on room air
AO saturation: 87.3% on room air
RA saturation: 41.9% on room air
Cardiac Output : 3.86 L/min
Cardiac Index : 2.18 L/min/m-2
Systemic vascular resistance: 1615 dsc^(-5)
Pulmonary vascular resistance: 186 gamez unit
AO (s/d) : 125/63
LV (s/d) : 118/18
LVEDP : 29
CORONARY FINDINGS
DOMINANCE: Right
LEFT MAIN: The left main artery is a medium caliber vessel which gives rise to the left anterior descending artery and the left circumflex artery. There is 20 to 30% distal tapering.
LEFT ANTERIOR DESCENDING: The left anterior descending artery is a medium to large caliber vessel which gives rise to multiple small to medium caliber diagonal branches as it courses to the anterior interventricular groove and wraps around the apex.
Proximal to the previously placed mid LAD stent there is a short tubular 80% stenosis. In the mid to distal LAD distal to prior stent there is evidence of myocardial bridging. Lbin-al-ffjom collaterals are noted.
CIRCUMFLEX: The left circumflex artery is a medium caliber vessel which gives rise to 1 major obtuse marginal branch. Previously placed OM stent is widely patent. There is otherwise mild to moderate diffuse atherosclerotic plaque.
RIGHT CORONARY ARTERY: The right coronary artery is a medium to large caliber, dominant vessel with 100% chronic total occlusion which is present on prior cath by report from 20[facility] at [facility]. Mrgq-sy-sdecz collaterals are noted.
SEDATION: 47 minutes of procedural sedation was utilized. An independent medical staff credentialing coordinator was present to assist with and help manage the patient's level of consciousness and physiologic status.
RADIATION SUMMARY: Fluoro Time (min): 9.0, Dose (mGy): 638.96, DAP (Gy.cm2) : 40.85
Closure Device: 1. Vascular band over right radial artery, 10 cc of air.
2. Manual pressure was held over the right brachial venous access site with successful hemostasis
CONCLUSIONS
1. Proximal to the previously placed mid LAD stent there is a short tubular 80% stenosis. In the mid to distal LAD distal to prior stent there is evidence of myocardial bridging. Vjhq-bz-bkrng collaterals are noted.
2. Previously placed OM1 stent is widely patent with otherwise mild to moderate diffuse atherosclerotic plaque.
3. The right coronary artery has 100% chronic total occlusion with vzyv-ee-srrgm collaterals.
4. Significantly elevated right and left-sided filling pressures with normal cardiac output and mildly elevated systemic vascular resistance
RECOMMENDATIONS
1. Discussed options with daughter including aggressive medical therapy in the setting of no angina and concern for progressive dementia/confusion versus PCI after he demonstrates that he can tolerate additional dual antiplatelet therapy with
baseline Xarelto given acute on chronic anemia of unclear etiology.
2. Aggressive management of cardiovascular risk factors.
3. Ongoing optimization of goal-directed medical therapy for ischemic cardiomyopathy.
4. Wean radial band per protocol.
5. Eventual referral for outpatient cardiac rehab.
Jillian Yanez MD, FACC, [facility]
--- NOTE | 2024-12-03 10:03 | W.PN.HOSP.TC ---
Today's Communication/Plan
-
cont diuresis
enema
FOBT
cont heparin
folow labs in am
Assessment / Plan
Assessment / Plan
84yo M with PMHX of SSS s/p PPM, HFrEF s/p ICD, ischemic CM, CAD s/p PCI, paroxysmal Afib, HTN, COPD, orthostatic hypotension brought from [facility] with sudden onset of SOB and hypoxia, Chest XR concerned for RUL and RLL pneumonia complicated by
pulmonary edema complicated by NSTEMI
A/P:
#Acute hypoxic respiratory failure 2/2 acute on chronic HFrEF exacerbation
#Ischemic CM (EF 25%
#RUL and RLL CAP
#Possible NSTEMI with PMHx of CAD
#Paroxysmal Afib
#S/p PPM
#S/P ICD
pro-BNP >76724
Lasix, daily weights, follow Cr and electrolytes, Alba for I&O
Trend troponin, heparin drip, ASA, statin
Echo: EF 20-25%mild valvular disease, akinesis of the mid to distal anterior wall, apex, and lateral jarquin - unchanged
EKG without overt ST elevation
With PMHx of orthostatic hypotension - defer initiation of BB to cardiology
Cardiology consult: s/p cardiac cath for 12/02/24
Telemetry
cont rate and rhythm control
Right-sided pneumonia- risk of aspiration, Vanco/Cefepime/Doxy will plan early switch to deescalate if keeps improving
Bcx NTD
COVID-19, Influenza PCR neg
Legionella and S.pneumonia Ag neg
Cannot exclude component of amiodarone induced ILD - CT showed Moderate amount of perihilar groundglass opacity in the upper lobes of both lungs - Pulmonary edema
#Acute anemia
no overt bleeding
check FOBT - RN aware
serial H&H remains stable
no bruising or swelling of b/l UE or LE concerning for intramuscular bleed
no significant abdominal tenderness, no hematoma on CT abd/pelvis
LDH elevated minimally, haptoglobin pending, Croombs neg
Daughter consented for blood transfusion if needed
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
#acute fracture of T11, complete vertebral body collapse, and retropulsion of the endplate into the spinal canal
Patient does not report change in his chronic back pain, no recent fall, no new paresthesia, numbness and able to move both of his LE as usual
NeuroSx consult: without symptoms and with non-focal exam, no need in surgical mgmt
#Mild indirect bilirubinemia
watch
#constipation
laxatives
#Fusiform infrarenal abdominal aortic aneurysm
2.6cm
monitor as outpatient
#Protein calorie malnutrition
BMI 17.9
Ensure supplements
#GERD
#HLD
cont home meds
#BPH
alba placed
Tamsulosin limited with hypotension and need in diuresis
DVT ppx hep drip
Full code
I have spent at least 57min reviewing chart, test results, communication with consultants and providing direct patient care
Anticipated Discharge: > 48 hours
Subjective/Interval History
-
Date of Service: December 03, 2024
Objective Data
-
Labs:
Laboratory Results
12/03/24
06:07
WBC 6.1
Hgb 8.7 L
Hct 25.8 L
Plt Count 206
APTT 125.8 H
Sodium 132 L
Potassium 3.6
Chloride 102
Carbon Dioxide 26
BUN 30 H
Creatinine 1.1
Glucose 88
Calcium 8.1 L
Total Bilirubin 0.9
AST 27
ALT 23
Alkaline Phosphatase 101
Vital Signs:
Vital Signs
Temp Pulse Resp BP Pulse Ox
97.9 F 75 12 120/67 9
12/03/24 04:30 12/03/24 07:25 12/03/24 06:48 12/03/24 07:25 12/03/24 07:42
I&O
12/02/24 12/03/24 12/04/24
06:59 06:59 06:59
Intake Total 1616 / 1616
Output Total 1350 / 1350 400 / 400
Balance 266 / 266 -400 / -400
Review of Systems
-
History Source: Patient
All other systems: Reviewed and negative
Physical Exam
-
General: No Apparent Distress
HEENT: Normocephalic
Respiratory: Clear to Auscultation
Cardiac: Regular Rhythm
GI: Soft, Nontender and Nondistended
Musculoskeletal: No Clubbing, No Cyanosis and No Edema
Neuro: Awake, Alert, Oriented and AO x 3
Psych: Calm
[2024-12-03] MEDS: PROTONIX 100 IV ×2 (10:10→20:53)
[2024-12-03] MEDS: COREG 3.125 MG PO ×2 (10:11→20:18)
[2024-12-03] MEDS: MIRALAX 17 GRAMS PO ×2 (10:12→20:19)
[2024-12-03] MEDS: PACERONE 100 MG PO (10:12)
[2024-12-03] MEDS: VIBRAMYCIN 260 MG IV (10:13)
[2024-12-03] MEDS: SENOKOT-S 1 TABLET PO ×2 (10:13→20:18)
[2024-12-03] MEDS: LASIX 40 MG IV ×2 (10:15→20:19)
--- NOTE | 2024-12-03 11:26 | PTCARENOTE ---
Pt TR band now off without incident. Pt very annoyed at care givers for giving care.
[2024-12-03 14:09] LABS: Haptoglobin 107 mg/dL (30-200)
--- NOTE | 2024-12-03 14:27 | PTCARENOTE ---
Called at lunch pt bleeding from radial site with TR band off HYDRAULIC PRESS TENDER here TR band placed , heparin off to retart at 4 pm. Pt is AAO
[2024-12-03] MEDS: DUONEB 3 ML INH ×2 (15:16→19:54)
[2024-12-03] MEDS: FLEET MINERAL OIL ENEMA 133 ML RECTAL (15:18)
[2024-12-03] MEDS: ROCEPHIN 1000 MG IV (15:56)
[2024-12-03] MEDS: STERILE WATER FOR INJECTION 10 ML IV (15:57)
[2024-12-03] MEDS: LIPITOR 80 MG PO (17:06)
--- NOTE | 2024-12-03 17:10 | CM ---
Patient from [facility] with Dx HF, CAP, anemia, thoracic spine fractures. Plan Cardiac cath today. O2 2L. Receiving IV Abx, IV Lasix, IV Protonix. Seen by PT 11/30; recommend skilled rehab. Seen by wound care nurse.
Patient accepted in [facility] by [facility].
Plan speak with patient & daughter prior to discharge.
Plan return to [facility] when medically ready.
--- NOTE | 2024-12-03 17:48 | PTCARENOTE ---
no results from enema
[2024-12-03] MEDS: VIBRAMYCIN 100 MG PO (20:19)
[2024-12-03] MEDS: SENOKOT 8.6 MG PO (21:30)
[2024-12-03] MEDS: XARELTO 10 MG PO (21:30)
--- NOTE | 2024-12-03 23:18 | PTCARENOTE ---
assumed care of patient from previous RN. patient aaox2, confused about time. very forgetful, repeating same questions and concerns. A paced on monitor. site checks on radial site from cardiac cath today- intake. 3L NC sating at 95%. Chronic alba
draining yellow urine. protonix gtt running. patient resting in bed with call jewell in reach.
[2024-12-04] VITALS (12 sets, daily range): BP systolic 102–123; BP diastolic 54–79; PULSE 75; O2SAT 96; BMI 18.1
--- NOTE | 2024-12-04 00:03 | W.PN.CARDCBS ---
Today's Communication / Plan
-
After the heart catheterization extensive discussion was had with patient's daughter at bedside reviewing potential treatment options including continued medical therapy given it is a mid LAD lesion with patient having no anginal symptoms with
stable echocardiographic findings in terms of his ischemic cardiomyopathy that has preexisted prior to this cath and optimizing his filling pressures with further IV diuresis. Given that this admission patient has had acute on chronic anemia of
unclear etiology that is being worked up with baseline need for Xarelto given paroxysmal atrial fibrillation in the setting of high CHADS2 Vascor and concerns for worsening confusion possibly due to underlying dementia, we agreed to just medically
treat for now. We will trial Plavix load in addition to Xarelto to see if patient can tolerate this in case he develops any symptoms and has an indication for percutaneous coronary artery intervention.
Patient's daughter expressed significant concerns and being overwhelmed in the setting of his confusion and I did clarify that the confusion is unlikely related to underlying cardiac issues and therefore aggressive management in regards to a PCI
would not necessarily improve that.
With elevated SVR we discussed that we would work on weaning off his midodrine to allow room for further medical therapy. Previously medical therapy was limited by hypotension and therefore previous doses of lisinopril and Aldactone were held since
last admission especially in the setting of AYE.
His troponin this admission peaked at 6.88 with echocardiogram otherwise showing stable LVEF of 20 to 25% which has existed since his last cath at [facility] in 2022.
Once patient is optimized from a diuretic standpoint for his acute decompensated heart failure as we work towards discharge planning and PT OT eval, we will also work on outpatient follow-up with me for continued monitoring of symptoms.
All of her questions were answered in significant detail to the best of my ability.
Discussed all of the above with nursing staff.
Impression / Plan
-
Primary Care Provider: Dr Leidy Mora
Primary technical inspector: Dr Jillian Yanez
Impression:
Admitted with multifactorial SOB 11/29/24
Recent admission for AYE on CKD 3b 11/14/24 until 11/20/24
Multifocal PNA
Acute on chronic HFrEF
Ischemic cardiomyopathy 25%
Elevated Troponin
Hyponatremia
Recent admission to [facility] for sepsis 10/2024
MSSA bacteremia followed by d/c to [facility] and outpatient NICOLAS at was negative for vegetation 10/29/24
CAD
KS and PTCA alone of unknown vessel 1991
anterior STEMI s/p LAD STEPHAN 06/02/2023
s/p cath with MANAGER CONFIGURATION RCA, stage mid-LAD mid STEPHAN & LCX at [facility] 07/11/2023
s/p [employer] DC ICD 12/2023
HTN
Paroxysmal Afib
Chronic Xarelto OAC
Chronic amiodarone therapy
HLD
COPD
PVD
BPH/TURP
Former smoker
Echo 11/22/23: LAD distribution akinesis, EF 20 to 25%, mild MR/AI
NICOLAS 10/29/24: study following admission to [facility] for MSSA bacteremia, EF 20 to 25%, normal RV size and function, positive echo contrast with no evidence of thrombus, mild MR/TR/AI, moderate atherosclerotic plaque, nonmobile, no evidence of vegetation
Plan:
After the heart catheterization extensive discussion was had with patient's daughter at bedside reviewing potential treatment options including continued medical therapy given it is a mid LAD lesion with patient having no anginal symptoms with
stable echocardiographic findings in terms of his ischemic cardiomyopathy that has preexisted prior to this cath and optimizing his filling pressures with further IV diuresis. Given that this admission patient has had acute on chronic anemia of
unclear etiology that is being worked up with baseline need for Xarelto given paroxysmal atrial fibrillation in the setting of high CHADS2 Vascor and concerns for worsening confusion possibly due to underlying dementia, we agreed to just medically
treat for now. We will trial Plavix load in addition to Xarelto to see if patient can tolerate this in case he develops any symptoms and has an indication for percutaneous coronary artery intervention.
Patient's daughter expressed significant concerns and being overwhelmed in the setting of his confusion and I did clarify that the confusion is unlikely related to underlying cardiac issues and therefore aggressive management in regards to a PCI
would not necessarily improve that.
With elevated SVR we discussed that we would work on weaning off his midodrine to allow room for further medical therapy. Previously medical therapy was limited by hypotension and therefore previous doses of lisinopril and Aldactone were held since
last admission especially in the setting of AYE.
His troponin this admission peaked at 6.88 with echocardiogram otherwise showing stable LVEF of 20 to 25% which has existed since his last cath at [facility] in 2022.
Once patient is optimized from a diuretic standpoint for his acute decompensated heart failure as we work towards discharge planning and PT OT eval, we will also work on outpatient follow-up with me for continued monitoring of symptoms.
All of her questions were answered in significant detail to the best of my ability.
Discussed all of the above with nursing staff.
HPI: Patient came to [facility] yesterday from the rehab section at [facility] with complaints of XIE and hypoxia and he has now admitted with multifactorial hypoxia including acute HFrEF and cardiology has been consulted. Patient was admitted to [facility] in
10/2024 with MSSA bacteremia and he was then discharged back to his assisted living apartment at [facility] and later completed an outpatient NICOLAS at on 10/29/2024 that was negative for vegetation. He was then admitted to from 11/14/2024 until
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 Cre as high as 1.8 on admission earlier this month and then improved with holding diuretic. Patient had been taking Lasix 80 mg daily on admission and he was ultimately d/c'd to rehab on Lasix 40 mg
daily. Also during that admission, his outpatient doses of Coreg 3.125 mg BID, lisinopril 5 mg daily and spironolactone 25 mg daily were held for hypotension and had not yet been resumed at the time of d/c. Patient was also newly started on
midodrine 5 mg TID that admission. Instead of returning to his assisted living apartment at [facility] the patient went to rehab at [facility] and was reportedly pushing a wheelchair around the facility yesterday when he complained of being SOB
and was noted to be hypoxic and was sent to ER where CXR was concerning for multifocal PNA and possible acute HFrEF. Patient has known ICM with EF 20 to 25% at least as far back as 2023. He also has history of PTCA and stenting of the LAD and
circumflex in 07/2023 at [facility] and also has a known MANAGER CONFIGURATION of the RCA. Patient also with known paroxysmal A-fib and is chronically on Xarelto 15 mg daily. When he was seen in the cardiology office on 09/11/2024 his Xarelto was continued, but his chronic
Plavix was stopped in favor of aspirin 81 mg daily. Cardiology was consulted and part due to troponin elevation seen this admission, troponin was initially 0.16 and then on recheck very early this morning and had increased to a level of 6. Patient
denies any CP.
Progress Note - Magnetic Tape Winder
Subjective
Date of Service: December 04, 2024
No issues overnight, Cath this AM
Objective
Labs:
Labs
Hgb 8.7 g/dL (13.0-18.0) L 12/03/24 06:07
Hct 25.8 % (39.0-52.0) L 12/03/24 06:07
Plt Count 206 10^3/uL (130-400) 12/03/24 06:07
APTT Cancelled 12/03/24 16:00
Sodium 132 mmol/L (135-145) L 12/03/24 06:07
Potassium 3.6 mmol/L (3.5-5.1) 12/03/24 06:07
BUN 30 mg/dl (9-20) H 12/03/24 06:07
Creatinine 1.1 mg/dL (0.7-1.3) 12/03/24 06:07
Glucose 88 mg/dl (70-99) 12/03/24 06:07
Vital Signs and I&O:
Vital Signs
Temp Pulse Resp BP Pulse Ox
97.3 F 75 11 124/65 95
12/03/24 23:13 12/03/24 21:29 12/03/24 21:29 12/03/24 21:29 12/03/24 22:06
Vital Signs
Temp Pulse Resp BP Pulse Ox
97.3 F 75 11 124/65 95
12/03/24 23:13 12/03/24 21:29 12/03/24 21:29 12/03/24 21:29 12/03/24 22:06
Intake & Output
12/01/24 12/02/24 12/03/24 12/04/24
06:59 06:59 06:59 06:59
Intake Total 764 / 764 1616 / 1616 1260 / 1260
Output Total 1475 / 1475 1350 / 1350 400 / 400 2049 / 2049
Balance -711 / -711 266 / 266 -400 / -400 -790 / -790
Physical Exam
Physical Exam
GEN: No distress, awake, Ox3
HEENT: supple, anicteric, mmm
LUNGS: Mild decreased at bases otherwise CTA, no wheezes/rales
CV: Reg, S1/S2, no murmur, rub or gallop
ABD: soft, BS+, NT/ND
EXT: No edema,clubbing or cyanosis
NEURO: Gross non-focal
SKIN: No rash, warm, dry, pink
[2024-12-04 04:34] LABS: % Basophils 0.5 % (0-2); % Eosinophils 2.4 % (0-6); % Monocytes 13.1 % (1.7-9.3); Absolute Eosinophils 0.1 10^3/uL (0-0.7); Absolute Immature Granulocytes 0.1 10^3/uL (0-0.05); Absolute Lymphocytes 0.9 10^3/uL (1.2-3.4); Absolute Monocytes 0.8 10^3/uL (0.1-0.6); Hematocrit 26.9 % (39.0-52.0); Hemoglobin 9.1 g/dL (13.0-18.0); Mean Corp Hgb Conc. 33.8 g/dL (33.0-37.0); Mean Corpuscular Hgb 30.5 pg (27.0-31.0); Mean Corpuscular Volume 90.3 fL (80.0-94.0); Mean Platelet Volume 9.8 fL (7.4-10.4); Nucleated Red Blood Cells % 0 % (-); Platelet Count 196 10^3/uL (130-400); Red Blood Cell Count 2.98 10^6/uL (4.70-6.10); Red Cell Dist. Width 18.1 % (11.5-14.5); White Blood Cell Count 5.9 10^3/uL (4.8-10.8)
[2024-12-04 05:15] LABS: ALT (SGPT) 29 U/L (0-50); AST (SGOT) 37 U/L (17-59); Albumin 2.6 g/dl (3.5-5.0); Alkaline Phosphatase 102 U/L (38-126); Blood Urea Nitrogen 26 mg/dl (9-20); Calcium 8.3 mg/dl (8.4-10.2); Carbon Dioxide 26 mmol/L (22-30); Chloride 100 mmol/L (98-107); Estimated Creatinine Clearance 46 ml/min; Glucose 80 mg/dl (70-99); HDL Cholesterol 50 mg/dl; LDL Cholesterol, Calculated 53 mg/dl; Magnesium 1.8 mg/dl (1.6-2.3); Potassium 3.7 mmol/L (3.5-5.1); Sodium 132 mmol/L (135-145); Total Bilirubin 0.9 mg/dl (0.2-1.3); Total Cholesterol 114 mg/dl (50-199); Total Protein 4.8 g/dl (6.3-8.2); Triglyceride 58 mg/dl (10-149); Very Low Density Lipoprotein 11 mg/dl (0-30); eGFR > 60.00
[2024-12-04] MEDS: PROTONIX 100 IV (06:11)
[2024-12-04] MEDS: DUONEB 3 ML INH (07:08)
[2024-12-04] MEDS: MIRALAX 17 GRAMS PO (08:24)
[2024-12-04] MEDS: SENOKOT-S 1 TABLET PO ×2 (08:25→19:37)
[2024-12-04] MEDS: COREG 3.125 MG PO ×2 (08:25→19:37)
[2024-12-04] MEDS: VIBRAMYCIN 100 MG PO ×2 (08:25→19:37)
[2024-12-04] MEDS: ProAmatine 5 MG PO ×3 (08:25→21:21)
[2024-12-04] MEDS: LASIX 40 MG IV ×2 (08:25→19:37)
[2024-12-04] MEDS: PACERONE 100 MG PO (08:25)
[2024-12-04] MEDS: LOW STRENGTH ASPIRIN 81 MG PO (08:25)
[2024-12-04] MEDS: PLAVIX 300 MG PO (08:41)
--- NOTE | 2024-12-04 10:09 | W.PN.HOSP.TC ---
Today's Communication/Plan
-
wean off O2
cont diuresis
switch to PPI BID
wean off O2
Assessment / Plan
Assessment / Plan
84yo M with PMHX of SSS s/p PPM, HFrEF s/p ICD, ischemic CM, CAD s/p PCI, paroxysmal Afib, HTN, COPD, orthostatic hypotension brought from [place] with sudden onset of SOB and hypoxia, Chest XR concerned for RUL and RLL pneumonia complicated by
pulmonary edema complicated by NSTEMI
A/P:
#Acute hypoxic respiratory failure 2/2 acute on chronic HFrEF exacerbation
#Ischemic CM (EF 25%
#RUL and RLL CAP
#Possible NSTEMI with PMHx of CAD
#Paroxysmal Afib
#S/p PPM
#S/P ICD
pro-BNP >30796
Lasix, daily weights, follow Cr and electrolytes, Alba for I&O
Trend troponin, heparin drip completed, ASA, statin
Xarelto restarted
Echo: EF 20-25%mild valvular disease, akinesis of the mid to distal anterior wall, apex, and lateral jarquin - unchanged
EKG without overt ST elevation
With PMHx of orthostatic hypotension - defer initiation of BB to cardiology
Cardiology consult: s/p cardiac cath for 12/02/24
Telemetry
cont rate and rhythm control
Right-sided pneumonia- risk of aspiration, Vanco/Cefepime/Doxy deescalated to ceftriaxone/doxy, target 5 days
Bcx NTD
COVID-19, Influenza PCR neg
Legionella and S.pneumonia Ag neg
Cannot exclude component of amiodarone induced ILD - CT showed Moderate amount of perihilar groundglass opacity in the upper lobes of both lungs - Pulmonary edema
#Acute anemia
no overt bleeding
check FOBT - RN aware
serial H&H remains stable
no bruising or swelling of b/l UE or LE concerning for intramuscular bleed
no significant abdominal tenderness, no hematoma on CT abd/pelvis
LDH elevated minimally, haptoglobin pending, Croombs neg
Daughter consented for blood transfusion if needed
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
#acute fracture of T11, complete vertebral body collapse, and retropulsion of the endplate into the spinal canal
Patient does not report change in his chronic back pain, no recent fall, no new paresthesia, numbness and able to move both of his LE as usual
NeuroSx consult: without symptoms and with non-focal exam, no need in surgical mgmt
#Mild indirect bilirubinemia
watch
#constipation
laxatives
enema
#Fusiform infrarenal abdominal aortic aneurysm
2.6cm
monitor as outpatient
#Protein calorie malnutrition
BMI 17.9
Ensure supplements
#GERD
#HLD
cont home meds
#BPH
alba placed
Tamsulosin limited with hypotension and need in diuresis
DVT ppx Xarelto
Full code
I have spent at least 38min reviewing chart, test results, communication with consultants and providing direct patient care
Anticipated Discharge: > 48 hours
Subjective/Interval History
-
Date of Service: December 04, 2024
Objective Data
-
Labs:
Laboratory Results
12/04/24
03:53
WBC 5.9
Hgb 9.1 L
Hct 26.9 L
Plt Count 196
Sodium 132 L
Potassium 3.7
Chloride 100
Carbon Dioxide 26
BUN 26 H
Creatinine 1.0
Glucose 80
Calcium 8.3 L
Total Bilirubin 0.9
AST 37
ALT 29
Alkaline Phosphatase 102
Vital Signs:
Vital Signs
Temp Pulse Resp BP Pulse Ox
98.1 F 76 17 101/67 100
12/04/24 03:00 12/04/24 10:00 12/04/24 10:00 12/04/24 08:25 12/04/24 08:00
I&O
12/03/24 12/04/24 12/05/24
06:59 06:59 06:59
Intake Total 1260 / 1260
Output Total 400 / 400 2800 / 2800
Balance -400 / -400 -1540 / -1540
Review of Systems
-
History Source: Patient
All other systems: Reviewed and negative
Physical Exam
-
General: No Apparent Distress
HEENT: Normocephalic
Respiratory: Clear to Auscultation
GI: Soft, Nontender and Nondistended
Musculoskeletal: No Clubbing, No Cyanosis and No Edema
Neuro: Awake, Alert, Oriented and AO x 3
Psych: Calm
[2024-12-04] MEDS: MAGNESIUM SULFATE 102 GRAMS IV (10:56)
--- NOTE | 2024-12-04 12:02 | W.PN.CARDCBS ---
Addendum entered and electronically signed by Wilber Graham MD 12/04/24 13:12:
I saw and examined the patient.
The DERMATOLOGY PROCEDURAL PHYSICIAN or PA's note was reviewed and I agree with the note.
Comment: General: Well developed, well nourished in NAD.
Neck: Supple, no JVD, HJR, carotids +2 B/L, no bruits bilaterally.
Heart: Non displaced PMI, RRR, no murmurs, No S3, S4, no rubs.
Lungs: Scattered rhonchi
Extremities: No clubbing, cyanosis or edema bilaterally.
Neuro: Grossly nonfocal, awake, alert and oriented x3.
Doing well from cardiology standpoint. Currently on room air. Will change to oral Lasix on 12/05.
Original Note:
Today's Communication / Plan
-
Continue to advance GDMT as blood pressure allows
Xarelto 10 mg resumed 12/03/2024
Continue to monitor hemoglobin and electrolytes
Continue IV diuresis with consideration of transitioning to oral Lasix within next 24 to 48 hours
Impression / Plan
-
Primary Care Provider: Dr Leidy Mora
Primary technician support engineer: Dr Jillian Yanez
Impression:
Admitted with multifactorial SOB 11/29/24
Recent admission for AYE on CKD 3b 11/14/24 until 11/20/24
Multifocal PNA
Acute on chronic HFrEF
Ischemic cardiomyopathy 25%
Elevated Troponin, peak 6.88
Hyponatremia
Recent admission to [facility] for sepsis 10/2024
MSSA bacteremia followed by d/c to [facility] and outpatient NICOLAS at was negative for vegetation 10/29/24
CAD
[place] and PTCA alone of unknown vessel 1990
anterior STEMI s/p LAD STEPHAN 06/02/2023
s/p cath with BLANKMAKER RCA, stage mid-LAD mid STEPHAN & LCX at [facility] 07/11/2023
s/p Medtronic DC ICD 12/2023
HTN
Paroxysmal Afib
Chronic Xarelto OAC
Chronic amiodarone therapy
HLD
COPD
PVD
BPH/TURP
Former smoker
Echo 11/22/23: LAD distribution akinesis, EF 20 to 25%, mild MR/AI
NICOLAS 10/29/24: DH study following admission to [facility] for MSSA bacteremia, EF 20 to 25%, normal RV size and function, positive echo contrast with no evidence of thrombus, mild MR/TR/AI, moderate atherosclerotic plaque, nonmobile, no evidence of vegetation
Cath 2022 at [facility] when patient had LAD and Circ PCI plus known BLANKMAKER RCA
Plan:
-Presented 11/29/2024 with multifactorial dyspnea
-Troponin peaked at 6.88. Echo noted above without change.
-Patient underwent cardiac catheterization 12/03/2024 which showed multivessel coronary artery disease with medical therapy recommended. Full cath report pending and not available at time of this progress note
-Acute anemia with initial hemoglobin of 11.8 however did drop to 8.5 on 12/02/2024, currently 9.1. Workup ongoing, LDH elevated minimally, haptoglobin pending, Croombs neg
-Heparin drip discontinued. Xarelto 10 mg resumed on the evening of 12/03/2024
-Continue carvedilol 3.125 mg twice a day. GDMT is limited by ongoing hypotension. Previous doses of Coreg 3.125 mg BID, lisinopril 5 mg daily and spironolactone 25 mg daily were held starting last admission due to hypotension/AYE and remain on
hold.
-Outpatient dose of midodrine 5 mg TID has been continued.
-Continue diuresis with IV Lasix twice daily. Patient was taking Lasix 40 mg PO daily prior to admission.
-EF 20 to 25% and is being managed as ICM. GDMT limited as noted above
-Patient with Medtronic DC ICD and Dr. Lei increased base pacing rate to 75 on 11/17/24 to help increase cardiac output.
-Patient with known paroxysmal Afib. Cont amiodarone 100 mg daily. Xarelto on hold since November 28, 2024.
HPI: Patient came to [facility] yesterday from the rehab section at [facility] with complaints of XIE and hypoxia and he has now admitted with multifactorial hypoxia including acute HFrEF and cardiology has been consulted. Patient was admitted to [facility] in
10/2024 with MSSA bacteremia and he was then discharged back to his assisted living apartment at [facility] and later completed an outpatient NICOLAS at on 10/29/2024 that was negative for vegetation. He was then admitted to from 11/14/2024 until
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 Cre as high as 1.8 on admission earlier this month and then improved with holding diuretic. Patient had been taking Lasix 80 mg daily on admission and he was ultimately d/c'd to rehab on Lasix 40 mg
daily. Also during that admission, his outpatient doses of Coreg 3.125 mg BID, lisinopril 5 mg daily and spironolactone 25 mg daily were held for hypotension and had not yet been resumed at the time of d/c. Patient was also newly started on
midodrine 5 mg TID that admission. Instead of returning to his assisted living apartment at [facility] the patient went to rehab at [facility] and was reportedly pushing a wheelchair around the facility yesterday when he complained of being SOB
and was noted to be hypoxic and was sent to ER where CXR was concerning for multifocal PNA and possible acute HFrEF. Patient has known ICM with EF 20 to 25% at least as far back as 2023. He also has history of PTCA and stenting of the LAD and
circumflex in 07/2023 at [facility] and also has a known BLANKMAKER of the RCA. Patient also with known paroxysmal A-fib and is chronically on Xarelto 15 mg daily. When he was seen in the cardiology office on 09/11/2024 his Xarelto was continued, but his chronic
Plavix was stopped in favor of aspirin 81 mg daily. Cardiology was consulted and part due to troponin elevation seen this admission, troponin was initially 0.16 and then on recheck very early this morning and had increased to a level of 6. Patient
denies any CP.
Progress Note - Chemical Sales Representative
Subjective
Date of Service: December 04, 2024
Patient seen and examined. Patient sitting up in chair. Patient reports that he feels well.
Objective
Labs:
12/04/24 03:53
12/04/24 03:53
Labs
Hgb 9.1 g/dL (13.0-18.0) L 12/04/24 03:53
Hct 26.9 % (39.0-52.0) L 12/04/24 03:53
Plt Count 196 10^3/uL (130-400) 12/04/24 03:53
APTT Cancelled 12/03/24 16:00
Sodium 132 mmol/L (135-145) L 12/04/24 03:53
Potassium 3.7 mmol/L (3.5-5.1) 12/04/24 03:53
BUN 26 mg/dl (9-20) H 12/04/24 03:53
Creatinine 1.0 mg/dL (0.7-1.3) 12/04/24 03:53
Glucose 80 mg/dl (70-99) 12/04/24 03:53
Vital Signs and I&O:
Vital Signs
Temp Pulse Resp BP Pulse Ox
98.1 F 76 17 101/67 100
12/04/24 03:00 12/04/24 10:00 12/04/24 10:00 12/04/24 08:25 12/04/24 08:00
Vital Signs
Temp Pulse Resp BP Pulse Ox
98.1 F 76 17 101/67 100
12/04/24 03:00 12/04/24 10:00 12/04/24 10:00 12/04/24 08:25 12/04/24 08:00
Intake & Output
12/02/24 12/03/24 12/04/24 12/05/24
06:59 06:59 06:59 06:59
Intake Total 1616 / 1616 1260 / 1260
Output Total 1350 / 1350 400 / 400 2800 / 2800
Balance 266 / 266 -400 / -400 -1540 / -1540
Physical Exam
Physical Exam
GEN: No distress, awake, Ox3
HEENT: supple, anicteric, mmm
LUNGS: Mild decreased at bases otherwise CTA, no wheezes/rales
CV: Reg, S1/S2, no murmur, rub or gallop
ABD: soft, BS+, NT/ND
EXT: No edema,clubbing or cyanosis
NEURO: Gross non-focal
SKIN: No rash, warm, dry, pink
--- NOTE | 2024-12-04 14:21 | PTCARENOTE ---
Rec'd pt this AM. forgetful. enema given as ordered with relief. vital signs stable. now tele LOC
[2024-12-04] MEDS: XARELTO 10 MG PO (17:31)
[2024-12-04] MEDS: ROCEPHIN 1000 MG IV (17:33)
[2024-12-04] MEDS: LIPITOR 80 MG PO (17:34)
[2024-12-04] MEDS: STERILE WATER FOR INJECTION 10 ML IV (17:34)
--- NOTE | 2024-12-04 18:44 | W.PN.UPDATE ---
Update Note
Progress Note Update
since patient had in-hospital anemia, and gastric wall thickening seen on CT - reasonable for in-patient GI consult as respiratory status much improved
Cont laxatives
[2024-12-04] MEDS: MIRALAX PO (19:38)
[2024-12-04] MEDS: PROTONIX IV 40 MG IV (19:38)
[2024-12-04] MEDS: NSS (PRESERVATIVE FREE) 10 ML IV (19:38)
[2024-12-04] MEDS: SENOKOT 8.6 MG PO (21:22)
--- NOTE | 2024-12-04 22:11 | PTCARENOTE ---
transported patient via bed to CT without issue. Patient questioned why he needed head CT and wanted to know provider who ordered, educated patient and answered all questions.
[2024-12-05] VITALS (10 sets, daily range): BP systolic 102–124; BP diastolic 47–80
[2024-12-05 04:16] LABS: Hematocrit 26.5 % (39.0-52.0)
[2024-12-05 04:38] LABS: Blood Urea Nitrogen 26 mg/dl (9-20); Calcium 8.4 mg/dl (8.4-10.2); Carbon Dioxide 28 mmol/L (22-30); Chloride 99 mmol/L (98-107); Estimated Creatinine Clearance 42 ml/min; Glucose 81 mg/dl (70-99); Potassium 3.4 mmol/L (3.5-5.1); Sodium 132 mmol/L (135-145); eGFR > 60.00
--- NOTE | 2024-12-05 07:52 | PTCARENOTE ---
On walking rounds pt is sleeping. On RA with POX at 94%. Acosta in place. AV paced on monitor
--- NOTE | 2024-12-05 09:18 | CON.GI ---
Consultation
-
Date/Time Consultation Requested: 12/04/241843
Date/Time Consultation Performed: 12/05/24 0918
Requesting Provider: Dr. Sutton
Performing Provider: Dr. Godoy / Kelsey Correia PA-C
Reason for Consultation: anemia
Medical History
Chief Complaint / HPI
Chief Complaint: consult for anemia
History of Present Illness:
This is an 84 year old male with a past medical history of CAD (s/p STEMI/stent placement 2022), ischemic cardiomyopathy with EF 20-25%, s/p ICD/pacemaker, paroxysmal atrial fibrillation (on Xarelto), HTN, hyperlipidemia, CKD who was recently
admitted at with hypotension/weakness secondary to advanced cardiomyopathy, started on midodrine and Lasix. In October, he was admitted at [facility] for MSSA bacteremia. He returned to the ER at 11/29/24 with symptoms of multifactorial dyspnea.
Troponin was elevated and he underwent cardiac catheterization 12/03/2024 which showed multivessel coronary artery disease with medical therapy recommended. He has been managed by both Cardiology and Pulmonology. GI is consulted for anemia as well as
findings of diffuse wall thickening of the stomach noted on CT abdomen/pelvis. He denies any abdominal pain, nausea, vomiting, dysphagia, reflux or heartburn. He states his bowel movements are very regular. No melena or BRBPR. Patient denies any
prior history of anemia. On admission, Hgb was 11.8 and did drop into the 8/9 range, currently 9.0. Iron studies show low serum iron and %sat. Ferritin normal. Per nursing staff he just passed a large, brown stool. He has never had an endoscopy or
colonoscopy.
Past Medical History
Past Medical History: Other (CAD (s/p STEMI/stent placement 2022), ischemic cardiomyopathy with EF 20-25%, s/p ICD/pacemaker, paroxysmal atrial fibrillation (on Xarelto), HTN, hyperlipidemia, CKD, h/o bacteremia )
Past Surgical History: Cardiac (angioplasty, cardiac stents, ICD), Tonsilectomy, Urological (TURP, bladder surgery with calculi removal) and Other
Social History
Tobacco: Non-Smoker
Alcohol: None
Drug: None
Family History
Family History: Other (no family history of GI malignancies)
Allergies / Home Medications
Allergy/AdvReac Type Severity Reaction Status Date / Time
No Known Allergies Allergy Verified 11/09/24 13:12
�Medication �Instructions �Recorded
atorvastatin 80 mg tablet 80 mg PO QPM High Cholesterol 08/19/23
magnesium oxide 400 mg PO BID Supplement 08/19/23
pantoprazole 40 mg tablet,delayed 40 mg PO QPM Gastrointestinal Issue 08/19/23
release
rivaroxaban 15 mg tablet (Xarelto) 15 mg PO DAILY Blood Clot 08/19/23
Prevention/Tx
acetaminophen 325 mg tablet 650 mg (2 x 325 mg) PO Q4HPRN PRN 11/20/24
mild pain/MOULTON/temp> 100.4F #10 tabs
amiodarone 100 mg tablet (Pacerone) 100 mg PO DAILY #30 tabs 11/20/24
furosemide 40 mg tablet 40 mg PO DAILY #30 tabs 11/20/24
midodrine 5 mg tablet 5 mg PO Q4HPRN PRN sbp less than 11/20/24
100 #10 tabs
midodrine 5 mg tablet 5 mg PO TID@0800,1300,1800 #90 tabs 11/20/24
polyethylene glycol 3350 17 gram 17 g PO DAILY #30 ea 11/20/24
oral powder packet
sennosides 8.6 mg capsule (senna) 8.6 mg PO HS Constipation #0 caps 11/20/24
bisacodyl 10 mg rectal suppository 10 mg OH DAILYPRN PRN IF NO BM 11/29/24
(Dulcolax (bisacodyl)) AFTR MOM
magnesium hydroxide 400 mg/5 mL 2,400 mg PO DAILYPRN PRN IF NO BM 11/29/24
oral suspension (Milk of Magnesia) BY 2ND DAY
sodium phosphates 19 gram-7 118 ml OH DAILYPRN PRN IF NO BM 11/29/24
gram/118 mL enema (Fleet Enema) AFTR DULCOLAX
zinc oxide 20 % topical paste 1 ea topical TID SACRUM,COCCYX 11/29/24
BUTTOCK
Review of Systems
-
History Source: Patient
All other systems: A 12 pt ROS was Negative except as stated above in HPI
Vital Signs
Temp Pulse Resp BP Pulse Ox
98.1 F 76 6 113/47 94
12/05/24 07:25 12/05/24 06:00 12/05/24 06:00 12/05/24 06:00 12/05/24 08:00
Physical Exam
Exam
General: Well Developed, Well Nourished and No Apparent Distress
Respiratory: Clear
Cardiac: Regular Rhythm
GI: Soft, Non Tender, Non Distended and Normal Bowel Sounds
Rectal: Brown and Hem Negative
Skin: Warm and Dry
Neuro: Awake, Alert and Oriented
Psych: Calm
Results
WBC 5.9 10^3/uL (4.8-10.8) 12/04/24 03:53
Hgb 9.0 g/dL (13.0-18.0) L 12/05/24 03:42
Hct 26.5 % (39.0-52.0) L 12/05/24 03:42
MCV 90.3 fL (80.0-94.0) 12/04/24 03:53
Plt Count 196 10^3/uL (130-400) 12/04/24 03:53
Absolute Neuts (auto) 4.0 10^3/uL (1.4-6.5) 12/04/24 03:53
APTT Cancelled 12/03/24 16:00
Sodium 132 mmol/L (135-145) L 12/05/24 03:42
Potassium 3.4 mmol/L (3.5-5.1) L 12/05/24 03:42
Chloride 99 mmol/L (98-107) 12/05/24 03:42
Carbon Dioxide 28 mmol/L (22-30) 12/05/24 03:42
BUN 26 mg/dl (9-20) H 12/05/24 03:42
Creatinine 1.1 mg/dL (0.7-1.3) 12/05/24 03:42
Calcium 8.4 mg/dl (8.4-10.2) 12/05/24 03:42
Total Bilirubin 0.9 mg/dl (0.2-1.3) 12/04/24 03:53
AST 37 U/L (17-59) 12/04/24 03:53
ALT 29 U/L (0-50) 12/04/24 03:53
Alkaline Phosphatase 102 U/L (38-126) 12/04/24 03:53
Diagnostic Image Results:
CT abdomen/pelvis 12/01/2024:
1. Severe calcific atherosclerotic plaque in the abdominal aorta, iliac, and femoral arteries.
2. Fusiform infrarenal abdominal aortic aneurysm (2.6 cm diameter).
3. Moderate amount of fecal material throughout the colon and rectum suggesting constipation.
4. Severely enlarged prostate gland.
5. Acosta catheter in the urinary bladder.
6. Multilevel osteoporotic vertebral body endplate insufficiency fractures in the lumbar spine.
7. Grade 1 anterolisthesis of L4 on L5 secondary to severe facet joint arthrosis.
moderate diffuse wall thickening throughout the stomach. The duodenum and jejunum appear normal. There is no upper abdominal ascites or pneumoperitoneum.
Prior GI Procedures:
EGD: never
Colonoscopy: never
Assessment / Plan
-
84 year old male with CAD (s/p STEMI/stent placement 2022), ischemic cardiomyopathy with EF 20-25%, s/p ICD/pacemaker, paroxysmal atrial fibrillation (on Xarelto), HTN, hyperlipidemia, CKD currently admitted for multifactorial dyspnea. GI consulted
for anemia as well as CT findings of diffuse wall thickening of the stomach. He denies any abdominal pain, nausea, vomiting, dysphagia, reflux or heartburn. Bowel movements are very regular. No melena or BRBPR. No prior history of anemia. On
admission, Hgb was 11.8 and did drop into the 8/9 range, currently 9.0. Iron studies show low serum iron and %sat. Ferritin normal. He has never had an endoscopy or colonoscopy.
IMPRESSION / PLAN:
Anemia (normocytic) with low serum iron, %sat, on Xarelto
- Hgb did drop from 11.8 --> 9.2/8.8/9.1/8.5/9.3 --->9.0 without overt signs of bleeding
- rectal exam shows brown stool, heme negative
- continue to trend Hgb
- transfuse if Hgb drops below 7
- Anemia is likely multifactorial, but as patient has never had an endoscopy or colonoscopy and now with anemia and low serum iron levels, discussed EGD/colonoscopy for further evaluation of the CHIOMA. Patient is undecided if he would want to
proceed with endoscopic procedures. Consider outpatient follow-up for EGD/colonoscopy if he wishes to proceed.
Gastric wall thickening (seen on CT)
- we discussed endoscopy for further evaluation, and as above, patient uncertain if he wishes to proceed with EGD
- he is currently asymptomatic
- continue PPI
Other medical issues managed as per hospitalist team, Cardiology, Pulmonology.
-
-
Thank you for consultation and allowing me to participate in the patient's care. Please call the buttonhole tacker GI physician during the after hours with any questions or concerns.
[2024-12-05] MEDS: PROTONIX IV 40 MG IV ×2 (09:24→20:00)
[2024-12-05] MEDS: NSS (PRESERVATIVE FREE) 10 ML IV ×2 (09:24→19:59)
[2024-12-05] MEDS: MIRALAX 17 GRAMS PO ×2 (09:24→19:59)
[2024-12-05] MEDS: COREG 3.125 MG PO ×2 (09:25→19:59)
[2024-12-05] MEDS: LASIX 40 MG IV (09:25)
[2024-12-05] MEDS: LOW STRENGTH ASPIRIN 81 MG PO (09:26)
[2024-12-05] MEDS: PACERONE 100 MG PO (09:26)
[2024-12-05] MEDS: ProAmatine 5 MG PO ×3 (09:26→21:18)
[2024-12-05] MEDS: VIBRAMYCIN 100 MG PO (09:26)
[2024-12-05] MEDS: SENOKOT-S 1 TABLET PO ×2 (09:26→19:59)
[2024-12-05] MEDS: PLAVIX 75 MG PO (09:26)
--- NOTE | 2024-12-05 10:04 | W.PN.CARDCBS ---
Addendum entered and electronically signed by Wilber Graham MD 12/05/24 10:56:
I saw and examined the patient.
The [employer] TRIBU[employer] MEMBER or PA's note was reviewed and I agree with the note.
Comment: General: Well developed, well nourished in NAD.
Neck: Supple, no JVD, HJR, carotids +2 B/L, no bruits bilaterally.
Heart: Non displaced PMI, RRR, no murmurs, No S3, S4, no rubs.
Lungs: Scattered rhonchi
Extremities: No clubbing, cyanosis or edema bilaterally.
Neuro: Grossly nonfocal, awake, alert and oriented x3.
He appears stable cardiology viewpoint. Will change to Lasix 40 mg p.o. twice daily and assess response. GI has been consulted for anemia. At present time continue Xarelto and Plavix. Replete potassium. Will sign off, call with questions
Original Note:
Today's Communication / Plan
-
Replete potassium
Continue Xarelto 10 mg with addition of Plavix 75 mg
Continue IV diuresis
Continue to monitor and trend hemoglobin
GI has been consulted for anemia
Impression / Plan
-
Primary Care Provider: Dr Leidy Mora
Primary hotel valet attendant: Dr Jillian Yanez
Impression:
Admitted with multifactorial SOB 11/29/24
Recent admission for AYE on CKD 3b 11/14/24 until 11/20/24
Multifocal PNA
Acute on chronic HFrEF
Ischemic cardiomyopathy 25%
Elevated Troponin
Hyponatremia
Recent admission to [facility] for sepsis 10/2024
MSSA bacteremia followed by d/c to [facility] and outpatient NICOLAS at was negative for vegetation 10/29/24
CAD
[place] and PTCA alone of unknown vessel 1990
anterior STEMI s/p LAD STEPHAN 06/02/2023
s/p cath with ART STUDIO TEACHER RCA, stage mid-LAD mid STEPHAN & LCX at [facility] 07/11/2023
s/p Medtronic DC ICD 12/2023
HTN
Paroxysmal Afib
Chronic Xarelto OAC
Chronic amiodarone therapy
HLD
COPD
PVD
BPH/TURP
Former smoker
Echo 11/22/23: LAD distribution akinesis, EF 20 to 25%, mild MR/AI
NICOLAS 10/29/24: DH study following admission to [facility] for MSSA bacteremia, EF 20 to 25%, normal RV size and function, positive echo contrast with no evidence of thrombus, mild MR/TR/AI, moderate atherosclerotic plaque, nonmobile, no evidence of vegetation
Cardiac catheterization 12/03/2024: LM: 20 to 30% distal stenosis. LAD: 80% proximal stenosis proximal to previously placed stent. Mid to distal LAD with evidence of myocardial bridging. [id number] collaterals. Circumflex patent OM stent and
mild to moderate diffuse plaque. RCA: 100% ART STUDIO TEACHER with [id number] collaterals. HEMODYNAMICS : (mmHg) RA (m) : 11; RV (s/d,m) :37/6, 10; PA (s/d, m) : 37/23, 28; PCWP (m) : 25; Cardiac Output : 3.86 L/min. Cardiac Index : 2.18 L/min/m-2. Systemic
vascular resistance: 1615 dsc^(-5), Pulmonary vascular resistance: 186 gamez unit
Plan:
-Presented 11/29/2024 with multifactorial dyspnea
-Troponin peaked at 6.88. Echo noted above without change.
-Patient underwent cardiac catheterization 12/03/2024 which showed multivessel coronary artery disease with medical therapy recommended after extensive discussion with patient's daughter.
-Acute anemia with initial hemoglobin of 11.8 however did drop to 8.5 on 12/02/2024, currently 9.0. Workup ongoing, LDH elevated minimally, haptoglobin pending, Croombs neg; GI has been consulted
-Heparin drip discontinued. Xarelto 10 mg resumed on the evening of 12/03/2024 and plan is to add Plavix 12/05/2024 in addition to Xarelto to see if patient can tolerate this in case he develops any symptoms and has an indication for percutaneous
coronary artery intervention.
-Continue carvedilol 3.125 mg twice a day. GDMT is limited by ongoing hypotension. Previous doses of Coreg 3.125 mg BID, lisinopril 5 mg daily and spironolactone 25 mg daily were held starting last admission due to hypotension/AYE and remain on
hold.
-Outpatient dose of midodrine 5 mg TID has been continued.
-Continue diuresis with IV Lasix twice daily. Patient was taking Lasix 40 mg PO daily prior to admission.
-Potassium 3.4. Will replete with ongoing diuresis
-EF 20 to 25% and is being managed as ICM. GDMT limited as noted above
-Patient with Medtronic DC ICD and Dr. Lei increased base pacing rate to 75 on 11/17/24 to help increase cardiac output.
-Patient with known paroxysmal Afib. Cont amiodarone 100 mg daily. Xarelto restarted 12/03/24
-
HPI: Patient came to [facility] yesterday from the rehab section at [facility] [place] with complaints of XIE and hypoxia and he has now admitted with multifactorial hypoxia including acute HFrEF and cardiology has been consulted. Patient was admitted to [facility] in
10/2024 with MSSA bacteremia and he was then discharged back to his assisted living apartment at [facility] and later completed an outpatient NICOLAS at on 10/29/2024 that was negative for vegetation. He was then admitted to from 11/14/2024 until
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 Cre as high as 1.8 on admission earlier this month and then improved with holding diuretic. Patient had been taking Lasix 80 mg daily on admission and he was ultimately d/c'd to rehab on Lasix 40 mg
daily. Also during that admission, his outpatient doses of Coreg 3.125 mg BID, lisinopril 5 mg daily and spironolactone 25 mg daily were held for hypotension and had not yet been resumed at the time of d/c. Patient was also newly started on
midodrine 5 mg TID that admission. Instead of returning to his assisted living apartment at [facility] the patient went to rehab at [facility] home and was reportedly pushing a wheelchair around the facility yesterday when he complained of being SOB
and was noted to be hypoxic and was sent to ER where CXR was concerning for multifocal PNA and possible acute HFrEF. Patient has known ICM with EF 20 to 25% at least as far back as 2023. He also has history of PTCA and stenting of the LAD and
circumflex in 07/2023 at [facility] and also has a known ART STUDIO TEACHER of the RCA. Patient also with known paroxysmal A-fib and is chronically on Xarelto 15 mg daily. When he was seen in the cardiology office on 09/11/2024 his Xarelto was continued, but his chronic
Plavix was stopped in favor of aspirin 81 mg daily. Cardiology was consulted and part due to troponin elevation seen this admission, troponin was initially 0.16 and then on recheck very early this morning and had increased to a level of 6. Patient
denies any CP.
Progress Note - Certified Peer Specialist
Subjective
Date of Service: December 05, 2024
Patient seen and examined. Patient sitting up in bed. Reports he feels well.
Objective
Labs:
12/05/24 03:42
12/05/24 03:42
Labs
Hgb 9.0 g/dL (13.0-18.0) L 12/05/24 03:42
Hct 26.5 % (39.0-52.0) L 12/05/24 03:42
Plt Count 196 10^3/uL (130-400) 12/04/24 03:53
APTT Cancelled 12/03/24 16:00
Sodium 132 mmol/L (135-145) L 12/05/24 03:42
Potassium 3.4 mmol/L (3.5-5.1) L 12/05/24 03:42
BUN 26 mg/dl (9-20) H 12/05/24 03:42
Creatinine 1.1 mg/dL (0.7-1.3) 12/05/24 03:42
Glucose 81 mg/dl (70-99) 12/05/24 03:42
Vital Signs and I&O:
Vital Signs
Temp Pulse Resp BP Pulse Ox
98.1 F 76 6 119/62 94
12/05/24 07:25 12/05/24 09:25 12/05/24 06:00 12/05/24 09:25 12/05/24 08:00
Vital Signs
Temp Pulse Resp BP Pulse Ox
98.1 F 76 6 119/62 94
12/05/24 07:25 12/05/24 09:25 12/05/24 06:00 12/05/24 09:25 12/05/24 08:00
Intake & Output
12/03/24 12/04/24 12/05/24 12/06/24
06:59 06:59 06:59 06:59
Intake Total 1260 / 1260
Output Total 400 / 400 2800 / 2800 1050 / 1050
Balance -400 / -400 -1540 / -1540 -1050 / -1050
Physical Exam
Physical Exam
GEN: No distress, awake, Ox3, sitting up in bed, elderly and frail-appearing
HEENT: supple, anicteric, mmm
LUNGS: Mild decreased at bases otherwise CTA, no wheezes/rales
CV: Reg, S1/S2, no murmur, rub or gallop
ABD: soft, BS+, NT/ND
EXT: No edema,clubbing or cyanosis
NEURO: Gross non-focal
SKIN: No rash, warm, dry, pink
--- NOTE | 2024-12-05 10:35 | W.PN.HOSP.TC ---
Today's Communication/Plan
-
cont diuresis
GI consult, but apparently patient not interested in scoping
Assessment / Plan
Assessment / Plan
84yo M with PMHX of SSS s/p PPM, HFrEF s/p ICD, ischemic CM, CAD s/p PCI, paroxysmal Afib, HTN, COPD, orthostatic hypotension brought from [place] with sudden onset of SOB and hypoxia, Chest XR concerned for RUL and RLL pneumonia complicated by
pulmonary edema complicated by NSTEMI
A/P:
#Acute hypoxic respiratory failure 2/2 acute on chronic HFrEF exacerbation
#Ischemic CM (EF 25%
#RUL and RLL CAP
#Possible NSTEMI with PMHx of CAD
#Paroxysmal Afib
#S/p PPM
#S/P ICD
pro-BNP >35977
Lasix, daily weights, follow Cr and electrolytes, Alba for I&O
Trend troponin, heparin drip completed, ASA, statin
Xarelto restarted
Echo: EF 20-25%mild valvular disease, akinesis of the mid to distal anterior wall, apex, and lateral jarquin - unchanged
EKG without overt ST elevation
With PMHx of orthostatic hypotension - defer initiation of BB to cardiology
Cardiology consult: s/p cardiac cath for 12/02/24
Telemetry
cont rate and rhythm control
Right-sided pneumonia- risk of aspiration, Vanco/Cefepime/Doxy deescalated to ceftriaxone/doxy, target 5 days
Bcx NTD
COVID-19, Influenza PCR neg
Legionella and S.pneumonia Ag neg
Cannot exclude component of amiodarone induced ILD - CT showed Moderate amount of perihilar groundglass opacity in the upper lobes of both lungs - Pulmonary edema
#Acute anemia
#Gastric wall thickening
no overt bleeding
check FOBT - RN aware
GI consult
serial H&H remains stable
no bruising or swelling of b/l UE or LE concerning for intramuscular bleed
no significant abdominal tenderness, no hematoma on CT abd/pelvis
LDH elevated minimally, haptoglobin WNL, Croombs neg
Daughter consented for blood transfusion if needed
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
#acute fracture of T11, complete vertebral body collapse, and retropulsion of the endplate into the spinal canal
Patient does not report change in his chronic back pain, no recent fall, no new paresthesia, numbness and able to move both of his LE as usual
NeuroSx consult: without symptoms and with non-focal exam, no need in surgical mgmt
#Mild indirect bilirubinemia
watch
#constipation - resolved on 12/05/24
laxatives
enema
#Fusiform infrarenal abdominal aortic aneurysm
2.6cm
monitor as outpatient
#Protein calorie malnutrition
BMI 17.9
Ensure supplements
#GERD
#HLD
cont home meds
#BPH with chronic urinary retention
alba placed in 2023
Tamsulosin limited with hypotension and need in diuresis
DVT ppx Xarelto
Full code
I have spent at least 38min reviewing chart, test results, communication with consultants and providing direct patient care
Anticipated Discharge: > 48 hours
Subjective/Interval History
-
Date of Service: December 05, 2024
Objective Data
-
Labs:
Laboratory Results
12/05/24
03:42
Hgb 9.0 L
Hct 26.5 L
Sodium 132 L
Potassium 3.4 L
Chloride 99
Carbon Dioxide 28
BUN 26 H
Creatinine 1.1
Glucose 81
Calcium 8.4
Vital Signs:
Vital Signs
Temp Pulse Resp BP Pulse Ox
98.1 F 75 19 121/80 94
12/05/24 07:25 12/05/24 10:00 12/05/24 10:00 12/05/24 10:00 12/05/24 08:00
I&O
12/04/24 12/05/24 12/06/24
06:59 06:59 06:59
Intake Total 1260 / 1260
Output Total 2800 / 2800 1050 / 1050
Balance -1540 / -1540 -1050 / -1050
Review of Systems
-
History Source: Patient
All other systems: Reviewed and negative
Physical Exam
-
General: No Apparent Distress
HEENT: Normocephalic
Respiratory: Clear to Auscultation
GI: Soft, Nontender and Nondistended
Skin: Warm
Neuro: Awake, Alert, Oriented and AO x 3
Psych: Calm
[2024-12-05] MEDS: KCL 40 MEQ PO (10:53)
--- NOTE | 2024-12-05 12:05 | PTCARENOTE ---
REpport to 4th floor nurse
--- NOTE | 2024-12-05 12:24 | PTCARENOTE ---
Pt moved to [id number] bed 2 [employer] and planishing press operator in pt belonging bag dentures in mouth , glasses on head , 3 bags sent that he came with
[2024-12-05] MEDS: LASIX 40 MG PO (16:24)
[2024-12-05] MEDS: LIPITOR 80 MG PO (16:59)
[2024-12-05] MEDS: XARELTO 10 MG PO (16:59)
[2024-12-05] MEDS: SENOKOT 8.6 MG PO (19:59)
[2024-12-06 03:00] VITALS: BP 111/54
[2024-12-06 06:00] VITALS: BMI 17.7
[2024-12-06 07:02] LABS: Hemoglobin 9.2 g/dL (13.0-18.0); Mean Corp Hgb Conc. 34.1 g/dL (33.0-37.0); Mean Corpuscular Hgb 30.8 pg (27.0-31.0); Mean Corpuscular Volume 90.3 fL (80.0-94.0); Mean Platelet Volume 10.2 fL (7.4-10.4); Platelet Count 213 10^3/uL (130-400); Red Blood Cell Count 2.99 10^6/uL (4.70-6.10); Red Cell Dist. Width 17.9 % (11.5-14.5); White Blood Cell Count 5.5 10^3/uL (4.8-10.8)
[2024-12-06 07:30] LABS: Blood Urea Nitrogen 25 mg/dl (9-20); Calcium 8.5 mg/dl (8.4-10.2); Carbon Dioxide 27 mmol/L (22-30); Chloride 99 mmol/L (98-107); Estimated Creatinine Clearance 41 ml/min; Glucose 75 mg/dl (70-99); Magnesium 1.7 mg/dl (1.6-2.3); Potassium 3.5 mmol/L (3.5-5.1); Sodium 133 mmol/L (135-145); eGFR > 60.00
[2024-12-06 07:45] VITALS: BP 107/58
[2024-12-06] MEDS: PROTONIX IV 40 MG IV ×2 (08:24→21:12)
[2024-12-06] MEDS: ProAmatine 5 MG PO ×3 (08:24→21:09)
[2024-12-06] MEDS: NSS (PRESERVATIVE FREE) 10 ML IV ×2 (08:24→21:09)
[2024-12-06] MEDS: PACERONE 100 MG PO (08:24)
[2024-12-06] MEDS: LASIX 40 MG PO ×2 (08:25→16:24)
[2024-12-06] MEDS: PLAVIX 75 MG PO (08:25)
[2024-12-06] MEDS: MIRALAX PO ×2 (08:25→08:37)
[2024-12-06] MEDS: COREG 3.125 MG PO ×2 (08:25→21:08)
[2024-12-06] MEDS: SENOKOT-S 1 TABLET PO ×2 (08:25→21:09)
[2024-12-06] MEDS: LOW STRENGTH ASPIRIN 81 MG PO (08:25)
--- NOTE | 2024-12-06 11:16 | W.PN.HOSP.TC ---
Today's Communication/Plan
-
DC
Assessment / Plan
Assessment / Plan
84yo M with PMHX of SSS s/p PPM, HFrEF s/p ICD, ischemic CM, CAD s/p PCI, paroxysmal Afib, HTN, COPD, orthostatic hypotension brought from [place] with sudden onset of SOB and hypoxia, Chest XR concerned for RUL and RLL pneumonia complicated by
pulmonary edema complicated by NSTEMI, completed Abx, had cardiac cath on 12/02/24 with recommendation to continue medical mgmt. GI also evaluated for anemia and gastric wall thickening, but patient declined EGD at this time, recommended to re-eval
later and scedule GI. Daughter informed on findings and recommendations and agreeable with them. Hgb remained stable without further drop. Patient remained on RA and PT/OT recommended rehab. Medically stable for d/c
A/P:
#Acute hypoxic respiratory failure 2/2 acute on chronic HFrEF exacerbation
#Ischemic CM (EF 25%
#RUL and RLL CAP
#Possible NSTEMI with PMHx of CAD
#Paroxysmal Afib
#S/p PPM
#S/P ICD
pro-BNP >67076
Lasix, daily weights, follow Cr and electrolytes, Alba for I&O
Trend troponin, heparin drip completed, ASA, statin
Xarelto restarted
Echo: EF 20-25%mild valvular disease, akinesis of the mid to distal anterior wall, apex, and lateral jarquin - unchanged
EKG without overt ST elevation
With PMHx of orthostatic hypotension - defer initiation of BB to cardiology
Cardiology consult: s/p cardiac cath for 12/02/24
Telemetry
cont rate and rhythm control
Right-sided pneumonia- risk of aspiration, Vanco/Cefepime/Doxy deescalated to ceftriaxone/doxy, target 5 days
Bcx NTD
COVID-19, Influenza PCR neg
Legionella and S.pneumonia Ag neg
Cannot exclude component of amiodarone induced ILD - CT showed Moderate amount of perihilar groundglass opacity in the upper lobes of both lungs - Pulmonary edema
#Acute anemia
#Gastric wall thickening
no overt bleeding
check FOBT - RN aware
GI consult
serial H&H remains stable
no bruising or swelling of b/l UE or LE concerning for intramuscular bleed
no significant abdominal tenderness, no hematoma on CT abd/pelvis
LDH elevated minimally, haptoglobin WNL, Croombs neg
Daughter consented for blood transfusion if needed
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
#acute fracture of T11, complete vertebral body collapse, and retropulsion of the endplate into the spinal canal
Patient does not report change in his chronic back pain, no recent fall, no new paresthesia, numbness and able to move both of his LE as usual
NeuroSx consult: without symptoms and with non-focal exam, no need in surgical mgmt
#Mild indirect bilirubinemia
watch
#constipation - resolved on 12/05/24
laxatives
enema
#Fusiform infrarenal abdominal aortic aneurysm
2.6cm
monitor as outpatient
#Protein calorie malnutrition
BMI 17.9
Ensure supplements
#GERD
#HLD
cont home meds
#BPH with chronic urinary retention
alba placed in 2023
Tamsulosin limited with hypotension and need in diuresis
DVT ppx Xarelto
Full code
I have spent at least 38min reviewing chart, test results, communication with consultants and providing direct patient care
Anticipated Discharge: Today
Subjective/Interval History
-
Date of Service: December 06, 2024
Objective Data
-
Labs:
Laboratory Results
12/06/24
06:19
WBC 5.5
Hgb 9.2 L
Hct 27.0 L
Plt Count 213
Sodium 133 L
Potassium 3.5
Chloride 99
Carbon Dioxide 27
BUN 25 H
Creatinine 1.1
Glucose 75
Calcium 8.5
Vital Signs:
Vital Signs
Temp Pulse Resp BP Pulse Ox
98.0 F 78 16 107/58 94
12/06/24 07:45 12/06/24 08:24 12/06/24 07:45 12/06/24 08:24 12/06/24 07:45
I&O
12/05/24 12/06/24 12/07/24
06:59 06:59 06:59
Intake Total 720 / 720
Output Total 1050 / 1050 1650 / 1650
Balance -1050 / -1050 -930 / -930
Review of Systems
-
History Source: Patient
All other systems: Reviewed and negative
Physical Exam
-
General: No Apparent Distress
HEENT: Normocephalic
Cardiac: Regular Rhythm
GI: Soft, Nontender and Nondistended
Skin: Warm
Neuro: Awake, Alert, Oriented and AO x 3
Psych: Calm
--- NOTE | 2024-12-06 11:20 | W.DCSUMMARY ---
Addendum entered and electronically signed by Jimmy Bowden MD 12/07/24 13:45:
Correction-date of discharge 12/07/24
Original Note:
Discharge Summary
Discharge Data
Date of Admission: 11/29/24
Date of Discharge: 12/06/24
-
Pending Results: No
Hospital Course
84yo M with PMHX of SSS s/p PPM, HFrEF s/p ICD, ischemic CM, CAD s/p PCI, paroxysmal Afib, HTN, COPD, orthostatic hypotension brought from [place] with sudden onset of SOB and hypoxia, Chest XR concerned for RUL and RLL pneumonia complicated by
pulmonary edema complicated by NSTEMI, completed Abx, had cardiac cath on 12/02/24 with recommendation to continue medical mgmt. GI also evaluated for anemia and gastric wall thickening, but patient declined EGD at this time, recommended to re-eval
later and scedule GI. Daughter informed on findings and recommendations and agreeable with them. Hgb remained stable without further drop. Patient remained on RA and PT/OT recommended rehab. Medically stable for d/c
I have spent at least 38min reviewing chart, test results, communication with consultants and providing direct patient care
patient was managed for:
#Acute hypoxic respiratory failure 2/2 acute on chronic HFrEF exacerbation
#Ischemic CM (EF 25%
#RUL and RLL CAP
#Possible NSTEMI with PMHx of CAD
#Paroxysmal Afib
#S/p PPM
#S/P ICD
#Acute anemia
#Gastric wall thickening
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
#acute fracture of T11, complete vertebral body collapse, and retropulsion of the endplate into the spinal canal
#Mild indirect bilirubinemia
#constipation - resolved on 12/05/24
#Fusiform infrarenal abdominal aortic aneurysm
#Protein calorie malnutrition
#GERD
#HLD
#BPH with chronic urinary retention
Discharge Plan
-
Patient Disposition: Acute Rehab Facility
Discharge Diagnosis/Procedures: Cardiac cath
Diet: Low Cholesterol
Activity: As tolerated
Activity Restrictions/Additional Instructions:
Wound Care Instructions
R hip: clean with soap and water, smear of honey gel, adaptic then dry dressing daily.
Follow up at wound care center call for an appointment.
Instructions: *[facility] Heart Failure Instructions
Stand Alone Forms: DC Instructions- Cath/EP Lab
Referrals:
Glendy Wagner CRNP [Specified Professional Personl] - 12/14/24 2:00 pm
Shadi Lyons DO [Family Provider] -
Prescriptions:
New
furosemide 40 mg Tablet
40 mg PO BID AT 0800,1600 Qty: 60 0RF
sennosides-docusate sodium 8.6-50 mg Tablet
1 tab PO BID Qty: 60 0RF
clopidogrel 75 mg Tablet
75 mg PO DAILY Qty: 30 0RF
carvedilol 3.125 mg Tablet
3.125 mg PO BID Qty: 60 0RF
aspirin 81 mg Tablet,Chewable
81 mg PO DAILY Qty: 30 0RF
pantoprazole 40 mg tablet,delayed release (DR/EC)
40 mg PO DAILY Qty: 30 0RF
Continued
atorvastatin 80 mg tablet
80 mg PO QPM
pantoprazole 40 mg tablet,delayed release (DR/EC)
40 mg PO QPM
Xarelto 15 mg tablet
15 mg PO DAILY
magnesium oxide 400 mg magnesium Tablet
400 mg PO BID
acetaminophen 325 mg Tablet
650 mg PO Q4HPRN PRN (Reason: mild pain/MOULTON/temp> 100.4F) Qty: 10 0RF
polyethylene glycol 3350 17 gram Powder In Packet
17 g PO DAILY Qty: 30 0RF
midodrine 5 mg Tablet
5 mg PO TID@0800,1300,1800 Qty: 90 0RF
amiodarone [Pacerone] 100 mg Tablet
100 mg PO DAILY Qty: 30 0RF
senna 8.6 mg Capsule
8.6 mg PO HS Qty: 0 0RF
magnesium hydroxide [Milk of Magnesia] 400 mg/5 mL Suspension
2,400 mg PO DAILYPRN PRN (Reason: IF NO BM BY 2ND DAY)
bisacodyl [Dulcolax (bisacodyl)] 10 mg Suppository
10 mg KY DAILYPRN PRN (Reason: IF NO BM AFTR MOM)
Fleet Enema 19-7 gram/118 mL Enema
118 ml KY DAILYPRN PRN (Reason: IF NO BM AFTR DULCOLAX)
zinc oxide 20 % Paste
1 ea TOPICAL TID
Discontinued
furosemide 40 mg Tablet
40 mg PO DAILY Qty: 30 0RF
midodrine 5 mg Tablet
5 mg PO Q4HPRN PRN (Reason: sbp less than 100) Qty: 10 0RF
Discharge Orders:
Discharge Patient (As Directed); Ordered 12/06/24
Ordered By: Vincent Sutton
Discharge Date and Time
Print Language: URDU
[2024-12-06 11:36] VITALS: BP 107/57
--- NOTE | 2024-12-06 13:24 | CM ---
CM reviewed chart, per [facility], no beds available over weekend. Patient otherwise medically stable for discharge, will need to follow up with [facility] tomorrow regarding bed availability. CM will continue to follow for all discharge planning
needs.
Plan; pending SNF placement, no beds at [facility] over weekend
[2024-12-06 15:33] VITALS: BP 104/44
[2024-12-06] MEDS: TYLENOL 650 MG PO (16:23)
[2024-12-06] MEDS: LIPITOR 80 MG PO (17:38)
[2024-12-06] MEDS: XARELTO 10 MG PO (17:38)
[2024-12-06 19:25] VITALS: BP 116/59
[2024-12-06] MEDS: SENOKOT 8.6 MG PO (21:09)
[2024-12-06] MEDS: MIRALAX 17 GRAMS PO (21:09)
[2024-12-06 23:32] VITALS: BP 121/61
[2024-12-07 06:00] VITALS: BMI 17.4
[2024-12-07 07:55] VITALS: BP 113/57
[2024-12-07] MEDS: LASIX 40 MG PO ×2 (08:24→16:15)
[2024-12-07] MEDS: LOW STRENGTH ASPIRIN 81 MG PO (08:24)
[2024-12-07] MEDS: PLAVIX 75 MG PO (08:25)
[2024-12-07] MEDS: SENOKOT-S 1 TABLET PO (08:25)
[2024-12-07] MEDS: PACERONE 100 MG PO (08:25)
[2024-12-07] MEDS: ProAmatine 5 MG PO ×2 (08:25→15:27)
[2024-12-07] MEDS: COREG 3.125 MG PO (08:25)
[2024-12-07] MEDS: PROTONIX IV 40 MG IV (08:26)
[2024-12-07] MEDS: NSS (PRESERVATIVE FREE) 10 ML IV (08:26)
[2024-12-07] MEDS: MIRALAX 17 GRAMS PO (08:27)
--- NOTE | 2024-12-07 11:17 | CM ---
Addendum entered by Andria Grimes 12/07/24 16:29:
met with patient at bedside; IMM benefit explained; form signed @ 1625
Addendum entered by Andria Grimes 12/07/24 14:25:
Facilty notified of ambulance picker time
Addendum entered by Andria Grimes 12/07/24 12:26:
Ambulance picker scheduled for 1630
Addendum entered by Andria Grimes 12/07/24 11:19:
Facility can accept patient today @ 1600
Original Note:
Patient stable for discharge today
Plan: discharge to [facility] today
Report # [phone]
--- NOTE | 2024-12-07 11:43 | W.PN.HOSP.TC ---
Addendum entered and electronically signed by Jimmy Bowden MD 12/07/24 12:03:
Reviewed interventional cardiology cardiac cath report patient with severe multivessel CAD and recommending dual antiplatelet agents with Xarelto. Outpatient cardiology follow-up has been arranged can further discuss duration of triple therapy.
Original Note:
Today's Communication/Plan
-
dc to SNF
op cards f/u
Assessment / Plan
Assessment / Plan
84yo M with PMHX of SSS s/p PPM, HFrEF s/p ICD, ischemic CM, CAD s/p PCI, paroxysmal Afib, HTN, COPD, orthostatic hypotension brought from [place] with sudden onset of SOB and hypoxia, Chest XR concerned for RUL and RLL pneumonia complicated by
pulmonary edema complicated by NSTEMI, completed Abx, had cardiac cath on 12/02/24 with recommendation to continue medical mgmt. GI also evaluated for anemia and gastric wall thickening, but patient declined EGD at this time, recommended to re-eval
later and scedule GI. Daughter informed on findings and recommendations and agreeable with them. Hgb remained stable without further drop. Patient remained on RA and PT/OT recommended rehab. Medically stable for d/c
A/P:
#Acute hypoxic respiratory failure 2/2 acute on chronic HFrEF exacerbation
#Ischemic CM (EF 25%
#RUL and RLL CAP
#Possible NSTEMI with PMHx of CAD
#Paroxysmal Afib
#S/p PPM
#S/P ICD
pro-BNP >25480
Lasix, daily weights, follow Cr and electrolytes, Alba for I&O
heparin drip completed, ASA, statin
Xarelto restarted
Echo: EF 20-25%mild valvular disease, akinesis of the mid to distal anterior wall, apex, and lateral jarquin - unchanged
EKG without overt ST elevation
Cardiology consult: s/p cardiac cath for 12/02/24
Telemetry
cont rate and rhythm control
Right-sided pneumonia- risk of aspiration, Vanco/Cefepime/Doxy deescalated to ceftriaxone/doxy, target 5 days
Bcx NTD
COVID-19, Influenza PCR neg
Legionella and S.pneumonia Ag neg
Cannot exclude component of amiodarone induced ILD - CT showed Moderate amount of perihilar groundglass opacity in the upper lobes of both lungs - Pulmonary edema
#Acute anemia
#Gastric wall thickening
no overt bleeding
check FOBT - RN aware
GI consult
serial H&H remains stable
no bruising or swelling of b/l UE or LE concerning for intramuscular bleed
no significant abdominal tenderness, no hematoma on CT abd/pelvis
LDH elevated minimally, haptoglobin WNL, Croombs neg
Daughter consented for blood transfusion if needed
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
#acute fracture of T11, complete vertebral body collapse, and retropulsion of the endplate into the spinal canal
Patient does not report change in his chronic back pain, no recent fall, no new paresthesia, numbness and able to move both of his LE as usual
NeuroSx consult: without symptoms and with non-focal exam, no need in surgical mgmt
#Mild indirect bilirubinemia
watch
#constipation - resolved on 12/05/24
laxatives
enema
#Fusiform infrarenal abdominal aortic aneurysm
2.6cm
monitor as outpatient
#Protein calorie malnutrition
BMI 17.9
Ensure supplements
#GERD
#HLD
cont home meds
#BPH with chronic urinary retention
alba placed in 2023
Tamsulosin limited with hypotension and need in diuresis
DVT ppx Xarelto
Full code
PT/OT-SNF. CH later today.
More than 30 minutes spent in discharge including
Final examination of the patient
Summarizing hospital stay
Instructions for continuing care to all relevant caregivers
Preparation of discharge records, prescriptions, and referral forms
Total time spent (in minutes): 55
Anticipated Discharge: Today
Subjective/Interval History
-
Date of Service: December 07, 2024
states awaiting to hear from
Objective Data
-
Vital Signs:
Vital Signs
Temp Pulse Resp BP Pulse Ox
97.6 F 76 18 113/57 97
12/07/24 07:55 12/07/24 08:24 12/07/24 07:55 12/07/24 08:25 12/07/24 07:55
I&O
12/06/24 12/07/24 12/08/24
06:59 06:59 06:59
Intake Total 720 / 720 720 / 720
Output Total 1650 / 1650 950 / 950
Balance -930 / -930 -230 / -230
Physical Exam
-
General: No Apparent Distress
HEENT: Normocephalic, Atraumatic and Moist Mucous Membranes
Respiratory: Clear to Auscultation (anterior )
Cardiac: Regular Rhythm
GI: Soft, Nontender and Nondistended
Skin: Warm
Neuro: Awake, Alert, Oriented and AO x 3
Psych: Calm
[2024-12-07 12:28] VITALS: BP 105/55; PULSE 77
[2024-12-07 13:17] LABS: COVID-19 Antigen Negative (Negative)
[2024-12-07 15:26] VITALS: BP 99/41
[2024-12-07 16:14] VITALS: BP 125/70
--- NOTE | 2024-12-08 10:15 | W.HF.CON ---
Heart Failure
- LV Function
Left ventricular function study result: LV Ejection fraction </= 35%
Ejection Fraction Percentage: 20-25
- ARNI
Patient already on ARNI: No
Heart Failure ARNI Contraindication: Hypotension
- ACEI/ARB
Patient already on ACEI/ARB: No
Heart Failure ACEI/ARB Contraindication: Hypotension
- Beta Lynn
Patient already on Evidence Based Beta Lynn: Yes
- Mineralocorticord Receptor Antagonist
Patient already on MRA: No
Heart Failure MRA Contraindication: Hypotension
- SGLT-2 Inhibitor
Patient already on SGLT-2 Inhibitor: No
Heart Failure SGLT-2 Inhibitor Contraindication: Patient Refusal
- Afib Anticoagulation
Patient already on Anticoagulation for Afib: Yes
- NYHA CHF Classification
NYHA CHF Classification Level: Class III - Symptoms w/ min exertion, interferes w/ nml daily activity
- ACC/AHA Stage
ACC/AHA Stage: Stage C: Symptomatic Heart Failure
== END 2024-12-07 16:44 | DRG 280 ==
LOC: 4 WEST ACU 22:09
PROVIDERS: Internal Medicine; Internal Medicine Interventional Cardiology; Nurse Practitioner Adult Health; Registered Nurse; ADMITTING PHYSICIAN Internal Medicine; ATTENDING PHYSICIAN Hospitalist; CONSULT PHYSICIAN Internal Medicine; CONSULT PHYSICIAN Nuclear Medicine Nuclear Cardiology; EMERGENCY PHYSICIAN Emergency Medicine; FAMILY PHYSICIAN Internal Medicine; OTHER PHYSICIAN Neurological Surgery
PROC: 5A0935A Assistance with Respiratory Ventilation, Less than 24 Consecutive Hours, High Flow/Velocity Cannula (ICD-10-PCS; 2024-11-29)
PROC: B211YZZ Fluoroscopy of Multiple Coronary Arteries using Other Contrast (ICD-10-PCS; 2024-12-03)
PROC: 4A023N8 Measurement of Cardiac Sampling and Pressure, Bilateral, Percutaneous Approach (ICD-10-PCS; 2024-12-03)
DX: I13.0 Hypertensive heart and chronic kidney disease with heart failure and stage 1 through stage 4 chronic kidney disease, or unspecified chronic kidney disease (principal); I50.23 Acute on chronic systolic (congestive) heart failure; I21.4 Non-ST elevation (NSTEMI) myocardial infarction; J96.01 Acute respiratory failure with hypoxia; J18.9 Pneumonia, unspecified organism; E87.1 Hypo-osmolality and hyponatremia; J44.0 Chronic obstructive pulmonary disease with (acute) lower respiratory infection; E46 Unspecified protein-calorie malnutrition; Z68.1 Body mass index [BMI] 19.9 or less, adult; M80.08XA Age-related osteoporosis with current pathological fracture, vertebra(e), initial encounter for fracture; R17 Unspecified jaundice; I48.0 Paroxysmal atrial fibrillation; I44.7 Left bundle-branch block, unspecified; I25.5 Ischemic cardiomyopathy; I25.2 Old myocardial infarction; I25.10 Atherosclerotic heart disease of native coronary artery without angina pectoris; N18.32 Chronic kidney disease, stage 3b; R33.8 Other retention of urine; N40.1 Benign prostatic hyperplasia with lower urinary tract symptoms; E78.00 Pure hypercholesterolemia, unspecified; K21.9 Gastro-esophageal reflux disease without esophagitis; I73.9 Peripheral vascular disease, unspecified; I49.5 Sick sinus syndrome; F17.200 Nicotine dependence, unspecified, uncomplicated; D64.9 Anemia, unspecified; I70.0 Atherosclerosis of aorta; I71.43 Infrarenal abdominal aortic aneurysm, without rupture; R29.6 Repeated falls; K59.00 Constipation, unspecified; Y95 Nosocomial condition; Z79.01 Long term (current) use of anticoagulants; Z95.810 Presence of automatic (implantable) cardiac defibrillator; Z95.5 Presence of coronary angioplasty implant and graft; Z79.82 Long term (current) use of aspirin; Z79.899 Other long term (current) drug therapy; Z79.02 Long term (current) use of antithrombotics/antiplatelets
CPT/HCPCS: 70450; 71045; 71250; 74176; 80048; 80053; 80061; 80202; 81003; 81015; 82248; 82607; 82728; 82746; 83010; 83540; 83550; 83605; 83615; 83735; 83880; 84145; 84484; 85014; 85018; 85025; 85027; 85045; 85379; 85730; 86850; 86880; 86900; 86901; 87040; 87070; 87086; 87449; 87502; 87811; 87899; 92610; 93005; 93306; 93460; 93970; 94640; 96365; 96375; 97116; 97163; 97530; 99152; 99153; 99285; C1894; Q9967

== ENCOUNTER → 2025-01-04 09:33 | Outpatient (REF) | payer OTHER, MEDICARE, SELFPAY ==
[2025-01-04 11:13] LABS: % Basophils 1.3 % (0-2); % Eosinophils 3.6 % (0-6); % Immature Granulocytes 0.4 % (0-0.5); % Lymphocytes 19.9 % (20.5-51.1); % Monocytes 15.3 % (1.7-9.3); % Neutrophils 59.5 % (42.2-75.2); Absolute Basophils 0.1 10^3/uL (0-0.2); Absolute Eosinophils 0.2 10^3/uL (0-0.7); Absolute Monocytes 0.7 10^3/uL (0.1-0.6); Absolute Neutrophils 2.9 10^3/uL (1.4-6.5); Hematocrit 29.6 % (39.0-52.0); Hemoglobin 9.2 g/dL (13.0-18.0); Mean Corp Hgb Conc. 31.1 g/dL (33.0-37.0); Mean Corpuscular Volume 96.4 fL (80.0-94.0); Mean Platelet Volume 9.9 fL (7.4-10.4); Nucleated Red Blood Cells % 0 % (-); Platelet Count 236 10^3/uL (130-400); Red Blood Cell Count 3.07 10^6/uL (4.70-6.10); Red Cell Dist. Width 17.2 % (11.5-14.5); White Blood Cell Count 4.8 10^3/uL (4.8-10.8)
[2025-01-04 11:47] LABS: ALT (SGPT) 15 U/L (0-50); AST (SGOT) 19 U/L (17-59); Alkaline Phosphatase 91 U/L (38-126); Blood Urea Nitrogen 27 mg/dl (9-20); Calcium 8.4 mg/dl (8.4-10.2); Carbon Dioxide 31 mmol/L (22-30); Chloride 99 mmol/L (98-107); Glucose 83 mg/dl (70-99); Magnesium 2.2 mg/dl (1.6-2.3); Potassium 3.7 mmol/L (3.5-5.1); Sodium 137 mmol/L (135-145); Total Bilirubin 0.9 mg/dl (0.2-1.3); Total Protein 5.1 g/dl (6.3-8.2); eGFR 59.26
[2025-01-04 11:55] LABS: NT-proBNP 16900 pg/ml
== END ==
LOC: OLABN 09:33
PROVIDERS: ATTENDING PHYSICIAN Student in an Organized Health Care Education/Training Program
DX: I50.22 Chronic systolic (congestive) heart failure (principal); I10 Essential (primary) hypertension; J96.10 Chronic respiratory failure, unspecified whether with hypoxia or hypercapnia
CPT/HCPCS: 36415; 80053; 83735; 83880; 85025

== ENCOUNTER → 2025-01-11 09:20 | Outpatient (REF) | payer OTHER, MEDICARE, SELFPAY ==
[2025-01-11 10:50] LABS: Blood Urea Nitrogen 33 mg/dl (9-20); Calcium 8.5 mg/dl (8.4-10.2); Carbon Dioxide 28 mmol/L (22-30); Chloride 98 mmol/L (98-107); Glucose 82 mg/dl (70-99); Potassium 4.2 mmol/L (3.5-5.1); Sodium 134 mmol/L (135-145); eGFR 53.84
[2025-01-11 11:03] LABS: NT-proBNP > 27000 pg/ml
== END ==
LOC: OLABN 09:20
PROVIDERS: ATTENDING PHYSICIAN Student in an Organized Health Care Education/Training Program
DX: I10 Essential (primary) hypertension (principal); I50.22 Chronic systolic (congestive) heart failure; J96.91 Respiratory failure, unspecified with hypoxia
CPT/HCPCS: 36415; 80048; 83880

== ENCOUNTER → 2025-01-16 15:22 | Outpatient (REF) | payer OTHER, MEDICARE, SELFPAY ==
[2025-01-16 16:04] LABS: Urine Albumin 3+ (Neg - Trace); Urine Bilirubin Negative (Negative); Urine Character Slightly Cloudy (Clear); Urine Color Amber; Urine Glucose Negative (Negative); Urine Ketone Negative (Negative); Urine Leukocyte 3+ (Negative); Urine Nitrite Positive (Negative); Urine Occult Blood 4+ (Negative); Urine Specific Gravity 1.015 (<1.030); Urine Urobilinogen Negative (Neg - 1+)
[2025-01-16 16:36] LABS: Urine Bacteria Many (Negative); Urine Red Blood Cell >100 /HPF (0-2); Urine Squamous Cell 0-2 /LPF (Few); Urine White Cell >100 /HPF (0-5)
== END ==
LOC: OLABN 15:22
PROVIDERS: ATTENDING PHYSICIAN Student in an Organized Health Care Education/Training Program; FAMILY PHYSICIAN Internal Medicine
DX: R82.998 Other abnormal findings in urine (principal)
CPT/HCPCS: 81003; 81015; 87086

== ENCOUNTER → 2025-01-29 10:54 | Outpatient (REF) | payer MEDICARE, OTHER, SELFPAY ==
[2025-01-29 12:14] LABS: % Basophils 0.2 % (0-2); % Eosinophils 0.5 % (0-6); % Immature Granulocytes 0.5 % (0-0.5); % Lymphocytes 8.5 % (20.5-51.1); % Monocytes 7.1 % (1.7-9.3); % Neutrophils 83.2 % (42.2-75.2); Absolute Eosinophils 0.1 10^3/uL (0-0.7); Absolute Immature Granulocytes 0.1 10^3/uL (0-0.05); Absolute Lymphocytes 0.8 10^3/uL (1.2-3.4); Absolute Monocytes 0.7 10^3/uL (0.1-0.6); Absolute Neutrophils 8.2 10^3/uL (1.4-6.5); Hematocrit 28.9 % (39.0-52.0); Hemoglobin 8.9 g/dL (13.0-18.0); Mean Corp Hgb Conc. 30.8 g/dL (33.0-37.0); Mean Corpuscular Volume 87.6 fL (80.0-94.0); Mean Platelet Volume 10.7 fL (7.4-10.4); Nucleated Red Blood Cells % 0 % (-); Platelet Count 178 10^3/uL (130-400); Red Cell Dist. Width 18.1 % (11.5-14.5); White Blood Cell Count 9.9 10^3/uL (4.8-10.8)
[2025-01-29 12:34] LABS: NT-proBNP > 27000 pg/ml
[2025-01-29 12:53] LABS: Blood Urea Nitrogen 43 mg/dl (9-20); Carbon Dioxide 30 mmol/L (22-30); Chloride 102 mmol/L (98-107); Glucose 63 mg/dl (70-99); Potassium 3.3 mmol/L (3.5-5.1); Sodium 137 mmol/L (135-145); eGFR 49.25
== END ==
LOC: OLABN 10:54
PROVIDERS: ATTENDING PHYSICIAN Student in an Organized Health Care Education/Training Program
DX: I10 Essential (primary) hypertension (principal); I50.22 Chronic systolic (congestive) heart failure; J96.91 Respiratory failure, unspecified with hypoxia
CPT/HCPCS: 36415; 80048; 83880; 85025

== ENCOUNTER → 2025-02-15 10:35 | Outpatient (REF) | payer OTHER, MEDICARE, SELFPAY ==
[2025-02-15 13:16] LABS: % Basophils 0.8 % (0-2); % Eosinophils 0.4 % (0-6); % Immature Granulocytes 0.2 % (0-0.5); % Lymphocytes 16.2 % (20.5-51.1); % Monocytes 8.7 % (1.7-9.3); % Neutrophils 73.7 % (42.2-75.2); Absolute Lymphocytes 0.8 10^3/uL (1.2-3.4); Absolute Monocytes 0.5 10^3/uL (0.1-0.6); Absolute Neutrophils 3.8 10^3/uL (1.4-6.5); Hematocrit 33.9 % (39.0-52.0); Hemoglobin 10.3 g/dL (13.0-18.0); Mean Corp Hgb Conc. 30.4 g/dL (33.0-37.0); Mean Corpuscular Hgb 24.7 pg (27.0-31.0); Mean Corpuscular Volume 81.3 fL (80.0-94.0); Mean Platelet Volume 11.2 fL (7.4-10.4); Nucleated Red Blood Cells % 0 % (-); Platelet Count 259 10^3/uL (130-400); Red Blood Cell Count 4.17 10^6/uL (4.70-6.10); Red Cell Dist. Width 19.9 % (11.5-14.5); White Blood Cell Count 5.2 10^3/uL (4.8-10.8)
[2025-02-15 13:37] LABS: Blood Urea Nitrogen 41 mg/dl (9-20); Calcium 8.6 mg/dl (8.4-10.2); Carbon Dioxide 25 mmol/L (22-30); Chloride 103 mmol/L (98-107); Glucose 73 mg/dl (70-99); HDL Cholesterol 44 mg/dl; LDL Cholesterol, Calculated 83 mg/dl; Magnesium 2.6 mg/dl (1.6-2.3); Potassium 4.3 mmol/L (3.5-5.1); Sodium 135 mmol/L (135-145); Total Cholesterol 142 mg/dl (50-199); Triglyceride 78 mg/dl (10-149); Very Low Density Lipoprotein 15 mg/dl (0-30); eGFR 39.02
== END ==
LOC: OLABN 10:35
PROVIDERS: ATTENDING PHYSICIAN Student in an Organized Health Care Education/Training Program
DX: I50.42 Chronic combined systolic (congestive) and diastolic (congestive) heart failure (principal); E78.5 Hyperlipidemia, unspecified; I50.22 Chronic systolic (congestive) heart failure
CPT/HCPCS: 36415; 80048; 80061; 83735; 85025